=== PATIENT | male | born 1955 | race American Indian/Alaskan Native ===

== ENCOUNTER 2017-01-09 19:38 | Outpatient (CLI) | payer MEDICAID | END 2017-01-09 19:39 | disposition critical access hospital (66) | LOC: EMS 19:38 | PROVIDERS: ATTEND Surgery | DX: T14.90 Injury, unspecified (principal); W17.89XA Other fall from one level to another, initial encounter; Y92.830 Public park as the place of occurrence of the external cause | CPT/HCPCS: A0425; A0429 ==

== ENCOUNTER 2017-01-09 19:56 | Emergency (ER) | payer MEDICAID ==
--- NOTE | 2017-01-09 21:18 | CT Preliminary Report ---
Exam: CT Head W/O IMPRESSION: 1. 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 No acute infarct. 2. Generalized age-related cortical atrophic changes without evidence of acute intracranial abnormali ty. [facility] SITE ID: [id number]
--- NOTE | 2017-01-09 21:21 | CT Report ---
EXAM: CT HEAD EXAM DATE: 01/09/2017 09:06 PM. CLINICAL HISTORY: Fall, head lac, etoh. COMPARISON: None. TECHNIQUE: Multiaxial CT images were obtained from the foramen magnum to the vertex. IV contrast: Non e. Reformats: Coronal. In accordance with CT protocol optimization, one or more of the following dose reduction techniques w ere utilized for this exam: automated exposure control, adjustment of mA and/or KV based on patient s ize, or use of iterative reconstructive technique. FINDINGS: Parenchyma: No intraparenchymal hemorrhage. No evidence of mass, midline shift, or CT findings of acu te infarction. Santiago-white differentiation is distinct. Areas of encephalomalacia are noted in the lef t frontal and left parietal lobes. Extraaxial Spaces: Normal for age. No subdural or epidural collections identified. Ventricles: The ventricles and cortical sulci are enlarged, consistent with age-related tissue loss. Sinuses: Imaged paranasal sinuses, orbits, and mastoids show no significant abnormality. Bones: No calvarial defect. Old bilateral nasal bone fractures are noted. Other: Diffuse chronic microangiopathic white matter changes are evident. Extensive vascular calcific ations are present in the vertebral and cavernous carotid arteries. Mild right occipital scalp hematoma. No radiopaque foreign bodies or subcutaneous emphysema. IMPRESSION: 1. 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 No acute infarct. 2. Generalized age-related cortical atrophic changes without evidence of acute intracranial abnormali ty. [facility] Referring Provider Line: [phone] SITE ID: [id number]
--- NOTE | 2017-01-09 21:46 | CT Preliminary Report ---
Exam: CT Cervical Spine W/O IMPRESSION: 1. No acute fracture. Normal prevertebral soft tissues. 2. Diffuse degenerative disk and facet arthropathy noted in the cervical spine. See above. 3. 3 mm C3 on C4 retrolisthesis and 2 mm of C4-C5 anterolisthesis likely degenerative in origin. [facility] SITE ID: [id number]
--- NOTE | 2017-01-09 22:31 | CT Report ---
EXAM: CT CERVICAL SPINE WITHOUT CONTRAST DATE: 01/09/2017 09:07 PM HISTORY: Fall, head laceration, alcohol (ETOH). COMPARISONS: None. TECHNIQUE: Thin-section axial images were acquired of the cervical spine without contrast. Post-proce ssing: Coronal and sagittal reformats. Other: None. In accordance with CT protocol optimization, one or more of the following dose reduction techniques w ere utilized for this exam: automated exposure control, adjustment of mA and/or KV based on patient s ize, or use of iterative reconstructive technique. FINDINGS: Comment: Study mildly limited by patient motion. Alignment: 3 mm C3 on C4 retrolisthesis and 2 mm of C4 on C5 anterolisthesis likely degenerative in o rigin. Mild convex left curvature of the cervical spine centered in the lower cervical levels. Bones: No fracture or bone lesion. Interspace Levels/Facets: C1-C2: Marked narrowing between the C1 arch and dens articulation. Mild narrowing at the C1-C2 latera l mass articulation. C2-C3: Mild disk narrowing. Mild left and marked right facet arthropathy. C3-C4: Moderate disk narrowing with prominent disk osteophyte complex. Mild left and moderate right f acet arthropathy. Mild bilateral foraminal stenosis due to uncovertebral joint hypertrophy and facet arthropathy and disk osteophyte complex. C4-C5: Mild disk narrowing. Mild to moderate right and mild left facet arthropathy without significan t foraminal stenosis. C5-C6: Moderate to marked disk narrowing. Mild bilateral facet arthropathy. Moderate left and mild ri ght foraminal stenosis. C6-C7: Moderate to marked disk narrowing. Prominent disk osteophyte complex. Moderate left foraminal stenosis. C7-T1: Mild disk narrowing. Moderate right and mild left facet arthropathy. Musculature: Normal. No fatty atrophy. Other: The paravertebral and prevertebral soft tissues are normal. The lung apices are clear. Debris is present within the mildly prominent esophagus at the level of the thoracic inlet. Mild mucosal thi ckening in ethmoid and left maxillary sinus. Mastoids are clear. IMPRESSION: 1. No acute fracture. Normal prevertebral soft tissues. 2. Diffuse degenerative disk and facet arthropathy noted in the cervical spine. See above. 3. 3 mm C3 on C4 retrolisthesis and 2 mm of C4-C5 anterolisthesis likely degenerative in origin. [facility] Referring Provider Line: [phone] SITE ID: [id number]
--- NOTE | 2017-01-10 05:14 | ED Physician Documentation ---
PD HPI HEAD INJURY - Stated complaint Stated Complaint: GLF - Chief complaint Chief Complaint: Neuro - History obtained from History obtained from: Family, EMS - History of Present Illness Mechanism of head injury: Fell Where head injury occurred: Street Timing - onset: Today Location of injury: Back Quality of pain: Pain Associated symptoms: AMS Symptoms worsen with: Palpation, Movement Contributing factors: Intoxicated Similar symptoms before: Work up / diagnostics, Treatment Recently seen: Not recently seen - Additional information Additional information: Patient is a 61 year old male with a history of chronic alcohol abuse who was brought to the emergency department after falling and hitting his head while intoxicated. Review of Systems Unable to obtain: Intoxicated PD PAST MEDICAL HISTORY - Past Medical History Neuro: CVA - Present Medications Home Medications: Ambulatory Orders Medication Instructions Recorded Confirmed No Known Home Medications [No 01/09/17 01/09/17 Known Home Medications] - Allergies Allergies/Adverse Reactions: Allergies Allergy/AdvReac Type Severity Reaction Status Date / Time No Known Drug Allergies Allergy Verified 01/09/17 20:06 - Social History Does the pt smoke?: Yes Does the pt drink ETOH?: Yes Substance Use and Type: Marijuana - Immunizations Immunizations are current?: No Immunizations: TDAP >10years/unknown PD ED PE NORMAL - Vitals Vital signs reviewed: Yes - HEENT HEENT: PERRL, Moist mucous membranes, Dentition benign - Neck Neck: No bony TTP - Cardiac Cardiac: RRR, No murmur - Respiratory Respiratory: No respiratory distress, Clear bilaterally - Abdomen Abdomen: Soft, Non tender, Non distended - Derm Derm: Normal color, Warm and dry, No rash - Extremities Extremities: No deformity, Normal ROM s pain, No edema PD ED PE EXPANDED - HEENT HEENT: Head injury (abrasion on right posterior scalp), Other (no other facial or dental trauma) - Back Back: Other (no ecchymosis, abrasions or lacerations ) - Psych Psych: Intoxicated / AOB Results - Vitals Vitals: Vital Signs - 24 hr 01/09/17 01/09/17 01/09/17 20:06 21:09 23:58 Temperature 36.6 C Heart Rate 72 75 86 Respiratory 18 18 15 Rate Blood Pressure 143/76 H 144/89 H 136/64 H O2 Saturation 99 100 100 Oxygen O2 Source Room air - Rads (name of study) ct head Radiology: Final report received (no acute abnormality) ct cervical spine Radiology: Final report received (no acute fracture or dislocation) PD MEDICAL DECISION MAKING - ED course Complexity details: reviewed old records, reviewed results, re-evaluated patient , considered differential, d/w patient ED course: Patient was seen and examined at bedside. Patient was sent for imaging. when patient returned his wound was cleaned and required no repair at this time. Patient's images showed no acute traumatic findings. Patient was observed in the emergency department for about 8 hours. Patient was given ample time to sober up. Upon discharge patient was able to ambulate at his baseline and was able to attend to conversation. Patient required no further work up and was stable for discharge with outpatient follow up. Departure - Departure Disposition: 01 Home, Self Care Clinical Impression: Alcohol abuse Condition: Good Instructions: ED Alcohol Abuse Follow-Up: primary,care provider [Other] - As Needed Comments: Your diagnostics today showed no acute abnormality. your symptoms are secondary to your alcohol abuse. You should seek help via your pmd or rehab center. You will likely be more sore tomorrow and the next day. You can take motrin or tylenol as needed for pain. You may return to the emergency department at any time if necessary for new, worsening or uncontrollable symptoms.
[2017-01-10 05:25] VITALS: BP 141/87
== END 2017-01-10 05:27 | disposition home or self-care (01) ==
LOC: EDUNIT# → ED 19:56
DX: F10.129 Alcohol abuse with intoxication, unspecified (principal); S00.01XA Abrasion of scalp, initial encounter; M54.9 Dorsalgia, unspecified; W08.XXXA Fall from other furniture, initial encounter; Y93.89 Activity, other specified; Y92.830 Public park as the place of occurrence of the external cause; F17.200 Nicotine dependence, unspecified, uncomplicated
CPT/HCPCS: 70450; 72125; 99283; 99284

== ENCOUNTER 2017-04-07 21:49 | Outpatient (CLI) | payer MEDICAID | END 2017-04-07 21:50 | disposition critical access hospital (66) | LOC: EMS 21:49 | PROVIDERS: ATTEND Surgery | DX: R10.9 Unspecified abdominal pain (principal); W19.XXXA Unspecified fall, initial encounter; Y92.129 Unspecified place in nursing home as the place of occurrence of the external cause | CPT/HCPCS: A0425; A0429 ==

== ENCOUNTER 2017-04-07 22:09 | Emergency (ER) | payer MEDICAID ==
[2017-04-07 22:15] VITALS: BP 146/77
--- NOTE | 2017-04-07 22:17 | ED Physician Documentation ---
PD HPI Fall - Stated complaint Stated Complaint: GLF, RIGHT RIB PAIN - History obtained from History obtained from: Patient - History of Present Illness Mechanism of injury: Unknown Fall distance: Standing position Timing - onset: Enter time (approximately 16:30), Today Injury(ies) location: Chest, Abdomen Pain level now: 10 Quality of pain: Pain Associated symptoms: No: LOC Symptoms improve with: Rest, Position Worsens with: Movement, Palpation Contributing factors: Intoxicated Recently seen: Not recently seen Review of Systems Cardiac: reports: Chest pain / pressure (right low anterolateral chest wall pain ). denies: Palpitations Respiratory: reports: Reviewed and negative GI: reports: Abdominal Pain (RUQ). denies: Nausea, Vomiting Musculoskeletal: reports: Reviewed and negative PD PAST MEDICAL HISTORY - Past Medical History Past Medical History: No - Present Medications Home Medications: Ambulatory Orders Medication Instructions Recorded Confirmed Hydrocodone/Acetaminophen 1 - 2 each PO Q6HR PRN #12 tablet 04/08/17 [Hydrocodon-Acetaminophen 5-325] - Allergies Allergies/Adverse Reactions: Allergies Allergy/AdvReac Type Severity Reaction Status Date / Time codeine AdvReac Unknown Verified 04/07/17 22:35 - Living Situation Living Situation: reports: Alone Living Arrangement: reports: Assisted living - Social History Does the pt drink ETOH?: Yes PD ED PE NORMAL - Vitals Vital signs reviewed: Yes - General General: Alert and oriented X 3, Well developed/nourished - HEENT HEENT: Atraumatic - Neck Neck: No bony TTP - Cardiac Cardiac: RRR, No murmur - Respiratory Respiratory: No respiratory distress, Clear bilaterally - Abdomen Abdomen: Soft, Non distended, Other (RUQ tenderness to palpation) - Back Back: No spinal TTP - Derm Derm: Normal color - Extremities Extremities: No deformity, No tenderness to palpate, Normal ROM s pain, No edema - Neuro Neuro: Alert and oriented X 3, annealer 2-12 intact, No motor deficit, No sensory deficit, Normal speech - Free text exam Free text exam: tenderness with palpation of anterolateral right ribs without crepitus or [employer] Results - Vitals Vitals: Vital Signs - 24 hr 04/07/17 22:13 Temperature 36.7 C Heart Rate 80 Respiratory 18 Rate Blood Pressure 146/77 H O2 Saturation 98 Oxygen O2 Source Room air - Labs Labs: Laboratory Tests 04/07/17 04/07/17 22:35 22:35 WBC 11.1 H RBC 4.80 Hgb 9.3 L Hct 30.9 L MCV 64.5 L MCH 19.4 L MCHC 30.1 L RDW 17.9 H Plt Count 424 MPV 6.2 L Neut # 7.7 H Lymph # 2.1 [place] # 0.7 Eos # 0.3 Baso # 0.2 H Absolute Nucleated RBC 0.00 Nucleated RBCs 0.0 Manual Slide Review Indicated WBC Morphology NORMAL APPEARANCE Platelet Estimate NORMAL (130-450,000) Platelet Morphology NORMAL APPEARANCE RBC Morph Micro Appear 2+ POIKILOCYTOSIS Sodium 131 L Potassium 4.2 Chloride 98 L Carbon Dioxide 23 Anion Gap 10.0 BUN 12 Creatinine 0.9 Estimated GFR (MDRD) 86 L Glucose 90 Calcium 8.4 L Total Bilirubin 0.4 AST 23 ALT 15 Alkaline Phosphatase 82 Total Protein 7.4 Albumin 4.3 Globulin 3.1 Albumin/Globulin Ratio 1.4 Lipase 61 H Ethyl Alcohol 182.5 - Rads (name of study) CT A/P Radiology: Prelim report reviewed, See rad report PD MEDICAL DECISION MAKING - ED course Complexity details: reviewed results, re-evaluated patient, considered differential, d/w patient Departure - Departure Disposition: 01 Home, Self Care Clinical Impression: Alcohol intoxication, Fall, Contusion, chest wall Condition: Good Instructions: ED Contusion Chest Wall, ED Alcohol Intoxication Follow-Up: Bryce Moy MD [Primary Care Provider] - Prescriptions: Hydrocodone/Acetaminophen [Hydrocodon-Acetaminophen 5-325] 1 - 2 each PO Q6HR PRN #12 tablet PRN Reason: Pain Discharge Date/Time: 04/08/17 02:37
[2017-04-07] MEDS ORDERED: MORPHINE 2 MG/ML CARPUJECT IVP STA (22:31)
[2017-04-07] MEDS ORDERED: MORPHINE 2 MG/ML CARPUJECT ONE (22:39)
[2017-04-07 22:50] LABS: BASOPHILS # (AUTO) 0.2 10^3/uL (0.0-0.1); BASOPHILS % (AUTO) 2.1 %; EOSINOPHILS # (AUTO) 0.3 10^3/uL (0.0-0.7); EOSINOPHILS % (AUTO) 3.1 %; HCT - HEMATOCRIT 30.9 % (42.0-52.0); HGB - HEMOGLOBIN 9.3 g/dL (14.0-18.0); LYMPHOCYTES # (AUTO) 2.1 10^3/uL (1.5-3.5); LYMPHOCYTES % (AUTO) 19.1 %; MEAN CORPUSCULAR HEMOGLOBIN 19.4 pg (27.0-31.0); MEAN CORPUSCULAR HGB CONC 30.1 g/dL (32.0-36.0); MEAN CORPUSCULAR VOLUME 64.5 fL (80.0-94.0); MEAN PLATELET VOLUME 6.2 fL (7.4-11.4); MONOCYTES # (AUTO) 0.7 10^3/uL (0.0-1.0); NEUTROPHILS # (AUTO) 7.7 10^3/uL (1.5-6.6); NEUTROPHILS % (AUTO) 69.7 %; RED CELL DISTRIBUTION WIDTH 17.9 % (12.0-15.0); UNCORRECTED WHITE BLOOD COUNT 11.1 x10^3/uL; WHITE BLOOD COUNT 11.1 x10^3/uL (4.8-10.8)
[2017-04-07 22:55] LABS: ALBUMIN/GLOBULIN RATIO 1.4 (1.0-2.2); BILIRUBIN,TOTAL 0.4 mg/dL (0.2-1.0); CALCIUM 8.4 mg/dL (8.5-10.3); CREATININE 0.9 mg/dL (0.6-1.2); POTASSIUM 4.2 mmol/L (3.5-5.0); TOTAL PROTEIN 7.4 g/dL (6.7-8.2)
[2017-04-07 23:09] LABS: PLATELET ESTIMATE, MANUAL NORMAL (130-450,000) (NORMAL); PLATELET MORPHOLOGY NORMAL APPEARANCE (NORMAL)
[2017-04-07 23:11] LABS: WBC MORPHOLOGY (MULTIPLE) NORMAL APPEARANCE (NORMAL)
[2017-04-07] MEDS ORDERED: IOPAMIDOL-300 100 ML VIAL IVP ONE (23:21)
--- NOTE | 2017-04-08 00:12 | CT Preliminary Report ---
Exam: CT Abdomen/Pelvis W/ IMPRESSION: 1. No solid organ injury in this patient status post fall. 2. Diverticulosis. Previous sigmoid resection. 3. Extensive postsurgical changes are noted in the pelvis, unchanged from prior studies. [facility] SITE ID: [id number]
--- NOTE | 2017-04-08 00:41 | CT Report ---
EXAM: CT ABDOMEN AND PELVIS EXAM DATE: 04/07/2017 11:24 PM. CLINICAL HISTORY: Fall, injury, RUQ tenderness. COMPARISONS: 07/30/2016. TECHNIQUE: Routine helical CT imaging was performed through the abdomen and pelvis. IV contrast: 100 mL of Isovue-300. Enteric contrast: No. Reconstructions: Coronal and sagittal. In accordance with CT protocol optimization, one or more of the following dose reduction techniques w ere utilized for this exam: automated exposure control, adjustment of mA and/or KV based on patient s ize, or use of iterative reconstructive technique. FINDINGS: Lung Bases: Mild cardiac enlargement. Small hiatal hernia. No effusions. Mild atelectasis at the base s. Liver: Fatty liver. No mass. Gallbladder/Bile Ducts: Unremarkable. Spleen: Normal. Pancreas: Normal. Adrenal Glands: Normal. Kidneys: Indeterminate 8 mm hyperdense left mid renal lesion on image 3, 36. No stones or merle hydronephrosis. Peritoneal Cavity/Bowel: Normal. No free fluid, free air or adenopathy. No masses or acute inflammato ry process. Occasional sigmoid diverticula. No inflammation. Appendix is not seen. Pelvic Organs: Prostate gland is surgically absent. Previous sigmoid resection is noted in the pelvis . Normal bladder. No pelvic mass or adenopathy. Vasculature: Diffuse atheromatous plaques are present in the abdominal aorta and branch vessels. No a neurysm. Normal IVC. Bones: No significant abnormality. Other: None. IMPRESSION: 1. No solid organ injury in this patient status post fall. 2. Diverticulosis. Previous sigmoid resection. 3. Extensive postsurgical changes are noted in the pelvis, unchanged from prior studies. [facility] Referring Provider Line: [phone] SITE ID: [id number]
[2017-04-08] MEDS ORDERED: MORPHINE 2 MG/ML CARPUJECT IVP STA (00:49)
[2017-04-08] MEDS ORDERED: MORPHINE 2 MG/ML CARPUJECT ONE (01:07)
== END 2017-04-08 02:37 | disposition home or self-care (01) ==
LOC: EDUNIT# → ED 22:09
DX: S20.211A Contusion of right front wall of thorax, initial encounter (principal); W18.39XA Other fall on same level, initial encounter; F10.129 Alcohol abuse with intoxication, unspecified
CPT/HCPCS: 36415; 74177; 80053; 80320; 83690; 85025; 96374; 96376; 99283; 99284; Q9967

== ENCOUNTER 2017-08-30 04:24 | Outpatient (CLI) | payer MEDICAID | END 2017-08-30 04:25 | disposition critical access hospital (66) | LOC: EMS 04:24 | PROVIDERS: ATTEND Surgery | DX: R50.9 Fever, unspecified (principal); R52 Pain, unspecified | CPT/HCPCS: A0425; A0429 ==

== ENCOUNTER 2017-08-30 04:38 | Emergency (ER) | payer MEDICAID ==
--- NOTE | 2017-08-30 05:26 | XRAY Report ---
EXAM: CHEST RADIOGRAPHY EXAM DATE: 08/30/2017 05:09 AM. CLINICAL HISTORY: Fever, cough. COMPARISON: None. TECHNIQUE: 2 views. FINDINGS: Lungs/Pleura: No alveolar consolidation or pleural effusion seen. No pneumothorax. Mediastinum: Heart and mediastinal contours are unremarkable. Aortic atherosclerosis. Other: None. IMPRESSION: 1. No acute abnormality seen in the chest. [facility] Referring Provider Line: [phone] SITE ID: [id number]
[2017-08-30] MEDS ORDERED: BENZONATATE 100 MG CAPSULE PO STA (05:58)
--- NOTE | 2017-08-30 05:58 | ED Physician Documentation ---
PD HPI URI - Stated complaint Stated Complaint: COUGH/CHILLS - Chief complaint Chief Complaint: Resp - History obtained from History obtained from: Patient, EMS - History of Present Illness Timing - onset: How many days ago (2) Timing details: Gradual onset, Still present Associated symptoms: Fever, Nasal congestion, Dry cough Similar symptoms before: No diagnosis Recently seen: Not recently seen - Additional information Additional information: Patient is a 62 year old male with a history of cognitive delay secondary to a stroke who was sent in from a [place] [facility] for fever and cough over the last few days. they stated that the highest temperature was 102. they called ems. Upon arrival for ems patient was no longer febrile. Review of Systems Unable to obtain: Confused, Dementia Constitutional: reports: Fever PD PAST MEDICAL HISTORY - Past Medical History Past Medical History: Yes Cardiovascular: Hypertension, High cholesterol, [place] Respiratory: None Neuro: Dementia Endocrine/Autoimmune: None GI: Pancreatitis : None HEENT: None Psych: None, Other Musculoskeletal: None Derm: None - Past Surgical History Past Surgical History: Yes - Present Medications Home Medications: Ambulatory Orders Medication Instructions Recorded Confirmed Acetaminophen [Tylenol] 650 mg PO PRN PRN 08/30/17 08/30/17 Aspirin 325 mg PO DAILY 08/30/17 08/30/17 Benzonatate [Tessalon] 100 mg PO TID #14 capsule 08/30/17 Metoprolol Succinate [Toprol Xl] 50 mg PO DAILY 08/30/17 08/30/17 guaiFENesin/DEXTROMETHORPHAN 10 ml PO DAILY 08/30/17 08/30/17 [Robitussin Dm] - Allergies Allergies/Adverse Reactions: Allergies Allergy/AdvReac Type Severity Reaction Status Date / Time codeine AdvReac Unknown Verified 08/30/17 04:43 - Social History Does the pt smoke?: No Smoking Status: Never smoker Does the pt drink ETOH?: Yes Does the pt have substance abuse?: No - Immunizations Immunizations are current?: No Immunizations: TDAP >10years/unknown - POLST Patient has POLST: No PD ED PE NORMAL - Vitals Vital signs reviewed: Yes - General General: Alert and oriented X 3, No acute distress - HEENT HEENT: Atraumatic, Moist mucous membranes - Neck Neck: Supple, no meningeal sign - Cardiac Cardiac: RRR, No murmur - Respiratory Respiratory: No respiratory distress - Abdomen Abdomen: Soft, Non tender, Non distended - Derm Derm: Normal color, Warm and dry, No rash - Extremities Extremities: No deformity, No edema - Neuro Neuro: No motor deficit Verbal: Confused Results - Vitals Vitals: Vital Signs - 24 hr 08/30/17 04:39 Temperature 37.4 C Heart Rate 91 Respiratory 20 Rate Blood Pressure 152/90 H O2 Saturation 99 Oxygen O2 Source Room air - Labs Labs: Laboratory Tests 08/30/17 04:50 Influenza A (Rapid) POSITIVE H Influenza B (Rapid) Negative Influenza Types A,B Ag + H - Rads (name of study) chest x-ray Radiology: Final report received (within normal limits) PD MEDICAL DECISION MAKING - ED course Complexity details: reviewed old records, reviewed results, re-evaluated patient , considered differential ED course: Patient was seen and examined at bedside. Patient was well appearing. Patient was afebrile, normotensive and not tachycardic. Chest x-ray was performed as well as flu swab. Patient was found to have the flu. Patient was immunocompetent and had had symptoms for over 48 hours so tamiflu was not given. Patient was treated with tessalon for his cough and was stable for discharge with outpatient follow up. Departure - Departure Disposition: 01 Home, Self Care Clinical Impression: Influenza A Condition: Good Instructions: ED Flu Follow-Up: Bryce Moy MD [Primary Care Provider] - Within 3 Days Prescriptions: Benzonatate [Tessalon] 100 mg PO TID #14 capsule Comments: Your symptoms today are being caused by the flu. there is no specific treatment , only to treat the symptoms. You can take motrin or tylenol as needed for fevers and over the counter cold and flu medications. You are contagious so it is important that you partake in adequate hand washing and cover when you cough/ wear a mask. If your symptoms persist for more than the next 4 days you should follow up with your doctor.
[2017-08-30 06:26] VITALS: BP 148/74
== END 2017-08-30 06:59 | disposition home or self-care (01) ==
LOC: EDUNIT# → ED 04:38 → SUPCPDRO 04:38 → ED 06:59
DX: J10.1 Influenza due to other identified influenza virus with other respiratory manifestations (principal); F03.90 Unspecified dementia, unspecified severity, without behavioral disturbance, psychotic disturbance, mood disturbance, and anxiety; Z86.73 Personal history of transient ischemic attack (TIA), and cerebral infarction without residual deficits; I10 Essential (primary) hypertension; E78.00 Pure hypercholesterolemia, unspecified; I25.2 Old myocardial infarction; Z79.82 Long term (current) use of aspirin
CPT/HCPCS: 71046; 87275; 87276; 99283; A9270

== ENCOUNTER 2017-11-08 22:00 | Outpatient (CLI) | payer MEDICAID | END 2017-11-08 22:01 | disposition critical access hospital (66) | LOC: EMS 22:00 | PROVIDERS: ATTEND Surgery | DX: R56.9 Unspecified convulsions (principal) | CPT/HCPCS: A0425; A0427 ==

== ENCOUNTER 2017-11-08 22:17 | Emergency (ER) | payer MEDICAID ==
--- NOTE | 2017-11-08 22:52 | ED Physician Documentation ---
History of Present Illness - Stated complaint Stated Complaint: SZ/FOUND DOWN - Chief complaint Chief Complaint: Neuro - History obtained from History obtained from: Patient, EMS - History of Present Illness Timing: Today - Additonal information Additional information: brought in by ambulance after passerby call 911 for patient being found on the ground in public. Patient says I had a seizure, Although he denies having any seizure history.there is no report of witnessed seizure activity. He is a resident at [facility] and reportedly was out with a friend drinking tonight. Review of Systems Unable to obtain: Intoxicated (unreliable ROS due to intoxication; additionally , previous ED record indicates h/o cognitive deficit due to CVA) PD PAST MEDICAL HISTORY - Past Medical History Past Medical History: Yes Cardiovascular: Hypertension, High cholesterol, [place] Respiratory: None Neuro: Dementia Endocrine/Autoimmune: None GI: Pancreatitis : None HEENT: None Psych: None, Other Musculoskeletal: None Derm: None - Past Surgical History Past Surgical History: Yes - Present Medications Home Medications: Ambulatory Orders Medication Instructions Recorded Confirmed Acetaminophen [Tylenol] 650 mg PO PRN PRN 08/30/17 08/30/17 Aspirin 325 mg PO DAILY 08/30/17 08/30/17 Metoprolol Succinate [Toprol Xl] 50 mg PO DAILY 08/30/17 08/30/17 guaiFENesin/DEXTROMETHORPHAN 10 ml PO DAILY 08/30/17 08/30/17 [Robitussin Dm] - Allergies Allergies/Adverse Reactions: Allergies Allergy/AdvReac Type Severity Reaction Status Date / Time codeine AdvReac Unknown Verified 11/08/17 22:26 - Social History Does the pt smoke?: No Smoking Status: Never smoker Does the pt drink ETOH?: Yes Does the pt have substance abuse?: No - Immunizations Immunizations are current?: No Immunizations: TDAP >10years/unknown - POLST Patient has POLST: No PD ED PE NORMAL - Vitals Vital signs reviewed: Yes - General General: Alert and oriented X 3, No acute distress, Well developed/nourished - HEENT HEENT: Atraumatic, PERRL, EOMI, Moist mucous membranes - Neck Neck: No bony TTP - Cardiac Cardiac: RRR, No murmur - Respiratory Respiratory: No respiratory distress, Clear bilaterally - Abdomen Abdomen: Soft, Non tender - Derm Derm: Normal color, Warm and dry - Extremities Extremities: No tenderness to palpate, Normal ROM s pain - Neuro Neuro: Alert and oriented X 3, bag maker 2-12 intact, No motor deficit, No sensory deficit, Other (intelligible but slightly slurred speech) Results - Vitals Vitals: Oxygen O2 Source Room air - EKG (time done) No standard instances Rate: Rate (enter#) (77) Rhythm: NSR [place]: Normal Intervals: Normal [place] QRS: Normal Ischemia: Normal ST segments - Labs Labs: Laboratory Tests 11/08/17 11/08/17 22:46 22:46 WBC 10.2 RBC 4.59 L Hgb 8.5 L Hct 28.8 L MCV 62.8 L MCH 18.5 L MCHC 29.5 L RDW 17.8 H Plt Count 432 MPV 6.4 L Neut # 7.5 H Lymph # 1.7 [place] # 0.6 Eos # 0.3 Baso # 0.2 H Absolute Nucleated RBC 0.00 Nucleated RBC % 0.0 Manual Slide Review Indicated Platelet Estimate NORMAL (130-450,000) RBC Morph Micro Appear 1+ OVALOCYTES Sodium 129 L Potassium 3.4 L Chloride 96 L Carbon Dioxide 23 Anion Gap 10.0 BUN 11 Creatinine 0.6 Estimated GFR (MDRD) 137 Glucose 94 Calcium 8.1 L Total Bilirubin 0.5 AST 23 ALT 14 Alkaline Phosphatase 64 Total Protein 7.0 Albumin 4.1 Globulin 2.9 Albumin/Globulin Ratio 1.4 Lipase 109 H Ethyl Alcohol 281.4 - Rads (name of study) CT head Radiology: Prelim report reviewed, See rad report PD MEDICAL DECISION MAKING - ED course Complexity details: reviewed results, re-evaluated patient, considered differential, d/w patient Departure - Departure Disposition: 01 Home, Self Care Clinical Impression: Alcohol intoxication Condition: Good Instructions: ED Alcohol Intoxication Follow-Up: [facility] [Provider Group] [facility] [Provider Group] Discharge Date/Time: 11/09/17 06:26
[2017-11-08] MEDS ORDERED: SODIUM CHLORIDE 0.9% 1,000 ML IV ONE (22:59)
[2017-11-08 23:01] LABS: BASOPHILS # (AUTO) 0.2 10^3/uL (0.0-0.1); BASOPHILS % (AUTO) 1.9 %; EOSINOPHILS # (AUTO) 0.3 10^3/uL (0.0-0.7); EOSINOPHILS % (AUTO) 2.5 %; HGB - HEMOGLOBIN 8.5 g/dL (14.0-18.0); LYMPHOCYTES # (AUTO) 1.7 10^3/uL (1.5-3.5); LYMPHOCYTES % (AUTO) 16.7 %; MEAN CORPUSCULAR HEMOGLOBIN 18.5 pg (27.0-31.0); MEAN CORPUSCULAR HGB CONC 29.5 g/dL (32.0-36.0); MEAN CORPUSCULAR VOLUME 62.8 fL (80.0-94.0); MEAN PLATELET VOLUME 6.4 fL (7.4-11.4); MONOCYTES # (AUTO) 0.6 10^3/uL (0.0-1.0); MONOCYTES % (AUTO) 6.1 %; NEUTROPHILS # (AUTO) 7.5 10^3/uL (1.5-6.6); NEUTROPHILS % (AUTO) 72.8 %; PLT - PLATELET COUNT 432 10^3/uL (130-450); RED BLOOD COUNT 4.59 10^6/uL (4.70-6.10); RED CELL DISTRIBUTION WIDTH 17.8 % (12.0-15.0); WHITE BLOOD COUNT 10.2 x10^3/uL (4.8-10.8)
[2017-11-08 23:04] LABS: ALBUMIN 4.1 g/dL (3.2-5.5); ALBUMIN/GLOBULIN RATIO 1.4 (1.0-2.2); BILIRUBIN,TOTAL 0.5 mg/dL (0.2-1.0); CALCIUM 8.1 mg/dL (8.5-10.3); CREATININE 0.6 mg/dL (0.6-1.2)
[2017-11-08 23:29] LABS: PLATELET ESTIMATE, MANUAL NORMAL (130-450,000) (NORMAL)
--- NOTE | 2017-11-09 00:32 | CT Preliminary Report ---
Exam: CT HEAD W/O IMPRESSION: Stable head CT status post left MCA infarcts. Stable moderate microvascular change. [facility] SITE ID: [id number]
--- NOTE | 2017-11-09 00:32 | CT Report ---
EXAM: CT HEAD EXAM DATE: 11/08/2017 11:28 PM. CLINICAL HISTORY: Decreased mental status COMPARISON: Prior head CT 01/09/2017. TECHNIQUE: Multiaxial CT images were obtained from the foramen magnum to the vertex. Reformats: Coron al. IV contrast: None. In accordance with CT protocol optimization, one or more of the following dose reduction techniques w ere utilized for this exam: automated exposure control, adjustment of mA and/or KV based on patient s ize, or use of iterative reconstructive technique. FINDINGS: Parenchyma: No intraparenchymal hemorrhage. Status post remote left MCA infarcts involving left front al and left parietal lobes. There is low-density involving left caudate nucleus as well. Scattered ar eas of low-density involving white matter bilateral cerebral hemispheres. Extraaxial Spaces: No subdural or epidural collections identified. Ventricles: Ex vacuo dilatation of left lateral ventricle. No mass effect. No midline shift. Sinuses and Orbits: Imaged paranasal sinuses, orbits, and mastoids show no significant abnormality. Bones: No evidence of fracture or calvarial defect. Other: None. IMPRESSION: Stable head CT status post left MCA infarcts. Stable moderate microvascular change. [facility] Referring Provider Line: [phone] SITE ID: [id number]
[2017-11-09 06:24] VITALS: BP 126/74
== END 2017-11-09 06:26 | disposition home or self-care (01) ==
LOC: EDUNIT# → ED 22:17
DX: F10.129 Alcohol abuse with intoxication, unspecified (principal); I10 Essential (primary) hypertension; I25.2 Old myocardial infarction; F03.90 Unspecified dementia, unspecified severity, without behavioral disturbance, psychotic disturbance, mood disturbance, and anxiety; E78.00 Pure hypercholesterolemia, unspecified; Z79.82 Long term (current) use of aspirin
CPT/HCPCS: 36415; 70450; 80053; 80320; 83690; 85025; 93005; 96360; 99283; 99285

== ENCOUNTER 2018-06-12 17:39 | Outpatient (CLI) | payer MEDICAID | END 2018-06-12 17:40 | disposition EMS.NT | LOC: EMS 17:39 | PROVIDERS: ATTEND Surgery | DX: S00.511A Abrasion of lip, initial encounter (principal); Y04.2XXA Assault by strike against or bumped into by another person, initial encounter ==

== ENCOUNTER 2018-06-17 18:53 | Outpatient (CLI) | payer MEDICAID | END 2018-06-17 18:54 | disposition critical access hospital (66) | LOC: EMS 18:53 | PROVIDERS: ATTEND Surgery | DX: S01.81XA Laceration without foreign body of other part of head, initial encounter (principal); W18.30XA Fall on same level, unspecified, initial encounter; Y92.099 Unspecified place in other non-institutional residence as the place of occurrence of the external cause | CPT/HCPCS: A0425; A0429; A0999 ==

== ENCOUNTER 2018-06-17 19:14 | Emergency (ER) | payer MEDICAID ==
--- NOTE | 2018-06-17 19:24 | ED Physician Documentation ---
PD HPI HEAD INJURY - Stated complaint Stated Complaint: GLF - HIT FOREHEAD, ETOH - Chief complaint Chief Complaint: Trauma Hd/Nk - History obtained from History obtained from: Patient, EMS - History of Present Illness Mechanism of head injury: Fell (63-year-old gentleman who was out drinking today and had a ground-level fall hitting his forehead. He also has a scrape on the right pinky and the knee.) Review of Systems Unable to obtain: Intoxicated PD PAST MEDICAL HISTORY - Past Medical History Cardiovascular: Hypertension, High cholesterol, [place] Respiratory: None Endocrine/Autoimmune: None GI: Pancreatitis : None HEENT: None Psych: None, Other Musculoskeletal: None Derm: None - Past Surgical History Past Surgical History: Yes - Present Medications Home Medications: Ambulatory Orders Medication Instructions Recorded Confirmed Acetaminophen [Tylenol] 650 mg PO PRN PRN 08/30/17 08/30/17 RX: Aspirin 325 mg PO DAILY 08/30/17 08/30/17 RX: Metoprolol Succinate [Toprol 50 mg PO DAILY 08/30/17 08/30/17 Xl] guaiFENesin/DEXTROMETHORPHAN 10 ml PO DAILY 08/30/17 08/30/17 [Robitussin Dm] - Allergies Allergies/Adverse Reactions: Allergies Allergy/AdvReac Type Severity Reaction Status Date / Time codeine AdvReac Unknown Verified 11/08/17 22:26 - Social History Does the pt smoke?: No Smoking Status: Never smoker Does the pt drink ETOH?: Yes Does the pt have substance abuse?: No - Immunizations Immunizations are current?: No Immunizations: TDAP >10years/unknown - POLST Patient has POLST: No PD ED PE NORMAL - Vitals Vital signs reviewed: Yes - General General: Other (He is alert and follows commands. He knows his name and he knows he has an upcoming dental appointment when we talk about it. He does smell of alcohol and is slurring his speech.) - HEENT HEENT: PERRL, EOMI - Neck Neck: Other (There is no bony tenderness of the neck but he is maintained in a c-collar pending imaging given his intoxicated status.) - Cardiac Cardiac: RRR, No murmur - Respiratory Respiratory: No respiratory distress, Clear bilaterally - Abdomen Abdomen: Normal bowel sounds, Soft, Non tender - Back Back: No CVA TTP, No spinal TTP - Derm Derm: Normal color, Warm and dry - Extremities Extremities: Other (There is a little skin scrape on the dorsum of the right pinky at the level of the PIP but no tenderness or limited range of motion. There is also a little scrape on the right knee but he has full range of motion there.) - Neuro Neuro: Alert and oriented X 3, Normal speech Eye Opening: Spontaneous Motor: Obeys Commands Verbal: Oriented GCS Score: 15 - Psych Psych: Normal mood, Normal affect Results - Vitals Vitals: Vital Signs - 24 hr 06/17/18 06/17/18 06/17/18 19:11 20:37 21:29 Temperature 36.3 C L Heart Rate 77 81 58 L Respiratory 18 15 14 Rate Blood Pressure 145/83 H 129/74 128/68 O2 Saturation 98 99 98 06/17/18 22:38 Temperature Heart Rate 68 Respiratory 15 Rate Blood Pressure 135/78 H O2 Saturation 97 Oxygen O2 Source Room air PD MEDICAL DECISION MAKING - ED course ED course: 63yo male s/o GLF while intoxicated. CT Head and Cspine done and without traumatic findings. Care to Dr Light to obs until clinically sober/safely ambulatory. Departure - Departure Clinical Impression: Alcohol intoxication, Fall, Injury of head and neck Condition: Good Record reviewed to determine appropriate education?: Yes Instructions: ED Alcohol Intoxication, ED Head Injury Closed
--- NOTE | 2018-06-17 20:18 | CT Report ---
Reason: head inj Procedure Date: 06/17/2018 Accession Number: [id number] / [id number] Procedure: CT - Head W/O CPT Code: FULL RESULT: EXAM: CT HEAD EXAM DATE: 06/17/2018 08:05 PM. CLINICAL HISTORY: Trauma, pain. COMPARISON: 11/08/2017. TECHNIQUE: Multiaxial CT images were obtained from the foramen magnum to the vertex. Reformats: Sagittal and coronal. IV contrast: None. In accordance with CT protocol optimization, one or more of the following dose reduction techniques were utilized for this exam: automated exposure control, adjustment of mA and/or KV based on patient size, or use of iterative reconstructive technique. FINDINGS: Parenchyma: No intraparenchymal hemorrhage. No evidence of mass, midline shift, or CT findings of acute infarction. Old left frontoparietal infarctions and lacunar infarctions. Santiago-white differentiation is distinct. Diffuse chronic microangiopathic white matter changes are evident. Extraaxial Spaces: Normal for age. No subdural or epidural collections. Ventricles: The ventricles and cortical sulci are enlarged, consistent with age-related tissue loss. Sinuses and orbits: Imaged paranasal sinuses, orbits, and mastoids show no significant abnormality. Bones: Old nasal fracture. Otherwise unremarkable. Other: Superficial soft tissue swelling high over right forehead. IMPRESSION: 1. Soft tissue swelling. 2. Old infarctions and other chronic findings, but no acute intracranial disease. [facility]
--- NOTE | 2018-06-17 20:34 | CT Report ---
Reason: head inj Procedure Date: 06/17/2018 Accession Number: [id number] / [id number] Procedure: CT - Cervical Spine W/O CPT Code: FULL RESULT: EXAM: CT CERVICAL SPINE WITHOUT CONTRAST DATE: 06/17/2018 08:06 PM. HISTORY: Fall, pain. COMPARISONS: 01/09/2017. TECHNIQUE: Thin-section axial images were acquired of the cervical spine without contrast. Post-processing: Coronal and sagittal reformats. Other: None. In accordance with CT protocol optimization, one or more of the following dose reduction techniques were utilized for this exam: automated exposure control, adjustment of mA and/or KV based on patient size, or use of iterative reconstructive technique. FINDINGS: Alignment: Mild scoliosis. No listhesis. Bones: No fracture or bone lesion. Interspace Levels/Facets: Disk space narrowing at all cervical levels except the C4-C5. Generalized degenerative changes. Musculature: Normal. No fatty atrophy. Other: The paravertebral and prevertebral soft tissues are unremarkable. The lung apices are clear. IMPRESSION: No acute disease. [facility]
[2018-06-17 22:39] VITALS: BP 135/78
--- NOTE | 2018-06-17 23:21 | ED Physician Documentation ---
ED Addendum - Addendum Addendum: 06/17/18 23:20 The patient was medically evaluated by Dr. Rosales, the patient's care was turned over to ma for observation until he was clinically sober before discharge. The patient was observed in the emergency department for several hours. The patient is now up alert and ambulating without assistance. The patient appears clinically sober and appropriate for discharge. The patient will be given a cab voucher to his place of residence. The patient resides at a senior care where he will be observed and cared for. The patient was advised to return to the emergency department immediately for any worsening or any concerns.
== END 2018-06-18 00:10 | disposition home or self-care (01) ==
LOC: EDUNIT# → ED 19:14
DX: F10.929 Alcohol use, unspecified with intoxication, unspecified (principal); S09.90XA Unspecified injury of head, initial encounter; S19.9XXA Unspecified injury of neck, initial encounter; S60.946A Unspecified superficial injury of right little finger, initial encounter; S80.911A Unspecified superficial injury of right knee, initial encounter; W18.30XA Fall on same level, unspecified, initial encounter; I10 Essential (primary) hypertension; I25.2 Old myocardial infarction; Z79.82 Long term (current) use of aspirin
CPT/HCPCS: 70450; 72125; 99283; 99284

== ENCOUNTER 2018-11-07 18:36 | Outpatient (CLI) | payer MEDICAID | END 2018-11-07 18:37 | disposition critical access hospital (66) | LOC: EMS 18:36 | PROVIDERS: ATTEND Surgery | DX: M54.2 Cervicalgia (principal); W18.30XA Fall on same level, unspecified, initial encounter; Y93.01 Activity, walking, marching and hiking; Y92.481 Parking lot as the place of occurrence of the external cause | CPT/HCPCS: A0425; A0429; A0999 ==

== ENCOUNTER 2018-11-07 18:52 | Observation (INO) | payer MEDICAID ==
--- NOTE | 2018-11-07 19:33 | ED Physician Documentation ---
History of Present Illness - Stated complaint Stated Complaint: GLF - Chief complaint Chief Complaint: Trauma Hd/Nk - History obtained from History obtained from: Patient - Additonal information Additional information: Patient is a 63-year-old male, a relatively poor historian, who admits to being intoxicated earlier today and having 2 separate falls. Patient does not believe he struck his head or loss consciousness, but does complain of neck pain. Patient denies other headache, extremity pain, chest pain, abdominal pain, difficulty breathing, pelvic pain, or other recent illness or complaints preceding his falls. Patient denies recent drug use. No known improving or worsening factors noted. Otherwise, patient does not provide further details and is unaccompanied. Review of Systems Constitutional: denies: Fever Cardiac: denies: Chest pain / pressure GI: denies: Abdominal Pain Musculoskeletal: reports: Neck pain PD PAST MEDICAL HISTORY - Past Medical History Cardiovascular: Hypertension, High cholesterol, [place] Respiratory: None Neuro: CVA, Seizure disorder Endocrine/Autoimmune: None GI: Pancreatitis : None HEENT: None Psych: None, Other Musculoskeletal: None Derm: None - Past Surgical History Past Surgical History: Yes - Present Medications Home Medications: Ambulatory Orders Medication Instructions Recorded Confirmed Acetaminophen [Tylenol] 650 mg PO PRN PRN 08/30/17 08/30/17 RX: Aspirin 325 mg PO DAILY 08/30/17 08/30/17 RX: Metoprolol Succinate [Toprol 50 mg PO DAILY 08/30/17 08/30/17 Xl] guaiFENesin/DEXTROMETHORPHAN 10 ml PO DAILY 08/30/17 08/30/17 [Robitussin Dm] - Allergies Allergies/Adverse Reactions: Allergies Allergy/AdvReac Type Severity Reaction Status Date / Time codeine AdvReac Unknown Verified 11/08/17 22:26 - Social History Does the pt smoke?: No Smoking Status: Former smoker Does the pt drink ETOH?: Yes ETOH Use: Beer Does the pt have substance abuse?: Yes Substance Use and Type: Marijuana - Immunizations Immunizations are current?: No Immunizations: TDAP >10years/unknown - POLST Patient has POLST: No PD ED PE NORMAL - General General: No acute distress, Well developed/nourished, Other (Slurred speech, interactive with exam, resting comfortably in bed) - HEENT HEENT: Atraumatic, PERRL (Gross visual acuity intact. No nystagmus.), EOMI, Moist mucous membranes, Other (Poor dentition throughout. No evidence of intraoral trauma. No facial bone instability or pain with palpation. No epistaxis.No periorbital swelling or ecchymosis noted.) - Neck Neck: No: No bony TTP (Bony tenderness to cervical spine only) - Cardiac Cardiac: RRR, No murmur - Respiratory Respiratory: No respiratory distress, Clear bilaterally - Abdomen Abdomen: Normal bowel sounds, Soft, Non tender, Non distended, Other (Pelvis stable and nontender) - Rectal Rectal: Other (No obvious rectal tears or hemorrhoids present. Minimal stool in vault without Hemoccult positive stool. No masses otherwise palpated.) - Back Back: No spinal TTP - Derm Derm: Normal color, Warm and dry, No rash - Extremities Extremities: No deformity, No tenderness to palpate - Neuro Neuro: No motor deficit, No sensory deficit - Psych Psych: Other (Seems slightly intoxicated) Results - Vitals Vitals: Vital Signs - 24 hr 11/07/18 11/07/18 11/07/18 19:00 19:05 21:05 Temperature 36.2 C L 36.2 C L Heart Rate 75 75 73 Respiratory 18 18 19 Rate Blood Pressure 131/70 H 131/70 H 127/57 L O2 Saturation 100 100 100 Oxygen O2 Source Room air - EKG (time done) 1904 Rate: Rate (enter#) (72) Rhythm: NSR QRS: LVH Ischemia: Hyperacute T waves - Labs Labs: Laboratory Tests 11/07/18 11/07/18 11/07/18 19:50 19:50 19:50 WBC 5.4 RBC 4.07 L Hgb 6.3 L* Hct 23.0 L MCV 56.4 L MCH 15.5 L MCHC 27.4 L RDW 17.3 H Plt Count 518 H MPV 5.8 L Neut # (Auto) 2.5 Lymph # (Auto) 2.1 Foster # (Auto) 0.4 Eos # (Auto) 0.2 Baso # (Auto) 0.2 H Absolute Nucleated RBC 0.00 Nucleated RBC % 0.0 Platelet Estimate INCREASED (>450,000) Platelet Morphology NORMAL APPEARANCE RBC Morph Micro Appear 2+ POIKILOCYTOSIS PT INR APTT Sodium 129 L Potassium 3.8 Chloride 94 L Carbon Dioxide 24 Anion Gap 11.0 BUN 11 Creatinine 0.8 Estimated GFR (MDRD) 98 Glucose 87 Calcium 8.7 Iron TIBC Transferrin Ferritin Total Bilirubin 0.4 AST 21 ALT 12 Alkaline Phosphatase 56 Troponin I < 0.04 Total Protein 7.2 Albumin 4.2 Globulin 3.0 Albumin/Globulin Ratio 1.4 Lipase 85 H Urine Color Urine Clarity Urine pH Ur Specific [place] Urine Protein Urine Glucose (UA) Urine Ketones Urine Occult Blood Urine Nitrite Urine Bilirubin Urine Urobilinogen Ur Leukocyte Esterase Ur Microscopic Review Urine Culture Comments Urine Opiates Screen Ur Oxycodone Screen Urine Methadone Screen Ur Propoxyphene Screen Ur Barbiturates Screen Ur Tricyclics Screen Ur Phencyclidine Scrn Ur Amphetamine Screen U Methamphetamines Scrn U Benzodiazepines Scrn Urine Cocaine Screen U Cannabinoids Screen Ethyl Alcohol 148.5 Blood Type Blood Type Recheck Antibody Screen Crossmatch IS Only 11/07/18 11/07/18 11/07/18 19:50 19:50 19:50 WBC RBC Hgb Hct MCV MCH MCHC RDW Plt Count MPV Neut # (Auto) Lymph # (Auto) Foster # (Auto) Eos # (Auto) Baso # (Auto) Absolute Nucleated RBC Nucleated RBC % Platelet Estimate Platelet Morphology RBC Morph Micro Appear PT INR APTT Sodium Potassium Chloride Carbon Dioxide Anion Gap BUN Creatinine Estimated GFR (MDRD) Glucose Calcium Iron < 6 L TIBC 531 H Transferrin 379 H Ferritin 4.4 L Total Bilirubin AST ALT Alkaline Phosphatase Troponin I Total Protein Albumin Globulin Albumin/Globulin Ratio Lipase Urine Color Urine Clarity Urine pH Ur Specific [place] Urine Protein Urine Glucose (UA) Urine Ketones Urine Occult Blood Urine Nitrite Urine Bilirubin Urine Urobilinogen Ur Leukocyte Esterase Ur Microscopic Review Urine Culture Comments Urine Opiates Screen Ur Oxycodone Screen Urine Methadone Screen Ur Propoxyphene Screen Ur Barbiturates Screen Ur Tricyclics Screen Ur Phencyclidine Scrn Ur Amphetamine Screen U Methamphetamines Scrn U Benzodiazepines Scrn Urine Cocaine Screen U Cannabinoids Screen Ethyl Alcohol Blood Type Blood Type Recheck A POSITIVE Antibody Screen Crossmatch IS Only 11/07/18 11/07/18 11/07/18 20:10 20:15 20:15 WBC RBC Hgb Hct MCV MCH MCHC RDW Plt Count MPV Neut # (Auto) Lymph # (Auto) Foster # (Auto) Eos # (Auto) Baso # (Auto) Absolute Nucleated RBC Nucleated RBC % Platelet Estimate Platelet Morphology RBC Morph Micro Appear PT 13.0 H INR 1.2 APTT 25.2 Sodium Potassium Chloride Carbon Dioxide Anion Gap BUN Creatinine Estimated GFR (MDRD) Glucose Calcium Iron TIBC Transferrin Ferritin Total Bilirubin AST ALT Alkaline Phosphatase Troponin I Total Protein Albumin Globulin Albumin/Globulin Ratio Lipase Urine Color LT. YELLOW Urine Clarity CLEAR Urine pH 6.5 Ur Specific [place] <=1.005 Urine Protein NEGATIVE Urine Glucose (UA) NEGATIVE Urine Ketones NEGATIVE Urine Occult Blood NEGATIVE Urine Nitrite NEGATIVE Urine Bilirubin NEGATIVE Urine Urobilinogen 0.2 (NORMAL) Ur Leukocyte Esterase NEGATIVE Ur Microscopic Review NOT INDICATED Urine Culture Comments NOT INDICATED Urine Opiates Screen NEGATIVE Ur Oxycodone Screen NEGATIVE Urine Methadone Screen NEGATIVE Ur Propoxyphene Screen NEGATIVE Ur Barbiturates Screen NEGATIVE Ur Tricyclics Screen NEGATIVE Ur Phencyclidine Scrn NEGATIVE Ur Amphetamine Screen NEGATIVE U Methamphetamines Scrn NEGATIVE U Benzodiazepines Scrn NEGATIVE Urine Cocaine Screen NEGATIVE U Cannabinoids Screen POSITIVE H Ethyl Alcohol Blood Type A POSITIVE Blood Type Recheck Antibody Screen NEGATIVE Crossmatch IS Only See Detail PD MEDICAL DECISION MAKING - ED course Complexity details: reviewed results, re-evaluated patient, considered differential, d/w patient, d/w help desk consultant ED course: Patient presenting after multiple likely mechanical falls earlier today. Feel that patient's use of alcohol is largely contributory. No obvious signs of trauma, systemic illness, or other issues on exam. Patient did complain of neck discomfort and given likely striking of head, as well as this complaint, obtained further imaging of head and neck to evaluate for possible fracture, bleed, or other intracranial injury. CT imaging returned unremarkable. Again, based on exam and complaints, have low suspicion for rib injury, intra-abdominal injury, extremity injury, or spinal/spinal cord injuries. Patient started on IV fluids, but did not require medications. Screening lab work, as well as EKG and drug testing obtained to further evaluate for possible etiologies of syncope/falls. EKG and troponin unremarkable. However, lab work showed significant anemia with hemoglobin of 6.3 and hematocrit of 23, as well as mild hyponatremia. Drug testing returned positive for marijuana and alcohol. Rectal exam then performed which returned guaiac negative. Feel that patient is likely anemic due to his chronic alcohol use. Discussed demonstration of blood products and he is agreeable. Discussed patient with hospitalist, who also agrees to blood transfusion and admission for further treatment and workup. Departure - Departure Disposition: ED Place in Observation Clinical Impression: Anemia Qualifiers: Anemia type: unspecified type Qualified Code(s): D64.9 - Anemia, unspecified Condition: Fair Discharge Date/Time: 11/07/18 22:45
[2018-11-07] MEDS ORDERED: SODIUM CHLORIDE 0.9% 1,000 ML IV ONE (19:43)
[2018-11-07 20:05] LABS: BASOPHILS # (AUTO) 0.2 10^3/uL (0.0-0.1); BASOPHILS % (AUTO) 3.4 %; EOSINOPHILS # (AUTO) 0.2 10^3/uL (0.0-0.7); EOSINOPHILS % (AUTO) 3.2 %; LYMPHOCYTES # (AUTO) 2.1 10^3/uL (1.5-3.5); LYMPHOCYTES % (AUTO) 39.2 %; MEAN CORPUSCULAR HEMOGLOBIN 15.5 pg (27.0-31.0); MEAN CORPUSCULAR HGB CONC 27.4 g/dL (32.0-36.0); MEAN CORPUSCULAR VOLUME 56.4 fL (80.0-94.0); MEAN PLATELET VOLUME 5.8 fL (7.4-11.4); MONOCYTES # (AUTO) 0.4 10^3/uL (0.0-1.0); MONOCYTES % (AUTO) 7.8 %; NEUTROPHILS # (AUTO) 2.5 10^3/uL (1.5-6.6); NEUTROPHILS % (AUTO) 46.4 %; PLT - PLATELET COUNT 518 10^3/uL (130-450); RED BLOOD COUNT 4.07 10^6/uL (4.70-6.10); RED CELL DISTRIBUTION WIDTH 17.3 % (12.0-15.0); WHITE BLOOD COUNT 5.4 x10^3/uL (4.8-10.8)
[2018-11-07 20:09] LABS: HGB - HEMOGLOBIN 6.3 g/dL (14.0-18.0)
[2018-11-07 20:10] LABS: ALBUMIN 4.2 g/dL (3.2-5.5); ALBUMIN/GLOBULIN RATIO 1.4 (1.0-2.2); BILIRUBIN,TOTAL 0.4 mg/dL (0.2-1.0); CALCIUM 8.7 mg/dL (8.5-10.3); CREATININE 0.8 mg/dL (0.6-1.2); TOTAL PROTEIN 7.2 g/dL (6.7-8.2)
[2018-11-07 20:19] LABS: BILIRUBIN,URINE NEGATIVE (NEGATIVE); GLUCOSE, URINE (UA) NEGATIVE (NEGATIVE); KETONES,URINE (UA) NEGATIVE (NEGATIVE); LEUKOCYTE ESTERASE, URINE NEGATIVE (NEGATIVE); MUDS CUTOFF CONCENTRATIONS CUTOFF CONC BELOW:; NITRITE,URINE NEGATIVE (NEGATIVE); OCCULT BLOOD,URINE NEGATIVE (NEGATIVE); PH,URINE 6.5 PH (5.0-7.5); PROTEIN,URINE NEGATIVE (NEGATIVE); UROBILINOGEN,URINE 0.2 (NORMAL) E.U./dL (NORMAL)
[2018-11-07 20:31] LABS: INR 1.2 (0.8-1.2)
[2018-11-07 20:37] LABS: AMPHETAMINE SCREEN,URINE NEGATIVE (NEGATIVE); BENZODIAZEPINES SCREEN, URINE NEGATIVE (NEGATIVE); CLARITY,URINE CLEAR (CLEAR); COCAINE SCREEN URINE NEGATIVE (NEGATIVE); METHADONE SCREEN, URINE NEGATIVE (NEGATIVE); METHAMPHETAMINES SCREEN, URINE NEGATIVE (NEGATIVE); OPIATE SCREEN, URINE NEGATIVE (NEGATIVE); OXYCODONE SCREEN, URINE NEGATIVE (NEGATIVE); PROPOXYPHENE SCREEN, URINE NEGATIVE (NEGATIVE); TRICYCLIC ANTIDEPRESSANT,URINE NEGATIVE (NEGATIVE)
[2018-11-07 20:39] LABS: PARTIAL THROMBOPLASTIN TIME 25.2 secs (24.9-33.3)
[2018-11-07 20:43] LABS: PLATELET ESTIMATE, MANUAL INCREASED (>450,000) (NORMAL); PLATELET MORPHOLOGY NORMAL APPEARANCE (NORMAL)
--- NOTE | 2018-11-07 20:50 | CT Report ---
Reason: fall while intoxicated Procedure Date: 11/07/2018 Accession Number: [id number] / [id number] Procedure: CT - HEAD WO CPT Code: FULL RESULT: EXAM: CT HEAD EXAM DATE: 11/07/2018 08:21 PM. CLINICAL HISTORY: Fall while intoxicated. COMPARISON: HEAD W/O 06/17/2018 7:52 PM. TECHNIQUE: Multiaxial CT images were obtained from the foramen magnum to the vertex. Reformats: Sagittal and coronal. IV contrast: None. In accordance with CT protocol optimization, one or more of the following dose reduction techniques were utilized for this exam: automated exposure control, adjustment of mA and/or KV based on patient size, or use of iterative reconstructive technique. FINDINGS: Parenchyma: No acute intraparenchymal hemorrhage. No evidence of mass or midline shift. Redemonstrated left frontal/parietal encephalomalacia from prior ischemic or traumatic injury. Nonspecific hypodense changes to the periventricular white matter, which can be seen with chronic small vessel ischemic disease. Chronic lacunar infarcts in the left basal ganglia. Extraaxial Spaces: No subdural or epidural collections identified. Ventricles: Ex vacuo dilation of the left lateral ventricle. Sinuses and Orbits: Imaged paranasal sinuses, orbits, and mastoids show no significant abnormality. Bones: No acute fracture visualized. Chronic nasal bone fractures. Other: None. IMPRESSION: No acute intracranial findings. An acute infarct may not be visible by CT. Follow-up examinations are recommended as clinically indicated. [facility]
--- NOTE | 2018-11-07 20:54 | CT Report ---
Reason: fall while intoxicated Procedure Date: 11/07/2018 Accession Number: [id number] / [id number] Procedure: CT - CERVICAL SPINE WO CPT Code: FULL RESULT: EXAM: CT CERVICAL SPINE WITHOUT CONTRAST DATE: 11/07/2018 08:21 PM. HISTORY: Fall while intoxicated. COMPARISONS: CERVICAL SPINE W/O 06/17/2018 7:52 PM. TECHNIQUE: Thin-section axial images were acquired of the cervical spine without contrast. Post-processing: Coronal and sagittal reformats. Other: None. In accordance with CT protocol optimization, one or more of the following dose reduction techniques were utilized for this exam: automated exposure control, adjustment of mA and/or KV based on patient size, or use of iterative reconstructive technique. FINDINGS: Alignment: Mild levoconvex curvature. Bones/discs: The bones are osteopenic. No acute fracture, subluxation, or compression deformity visualized. The craniocervical junction is intact. Facet joint alignment is normal. Mild to moderate multilevel degenerative facet arthropathy. Degenerative disk disease at C3-C4, C5-C6, and C6-C7. Musculature: Unremarkable. Other: The paravertebral and prevertebral soft tissues are unremarkable. The lung apices are clear. IMPRESSION: Osteopenia. No acute fracture or malalignment of the cervical spine. [facility]
[2018-11-07] MEDS ORDERED: SODIUM CHLORIDE FLUSH 0.9% 10 ML SYRINGE IVP PRN (22:00)
--- NOTE | 2018-11-07 22:57 | HISTORY & PHYSICAL EXAMINATION ---
Chief Complaint - Chief Complaint Chief Complaint: s/p fall History of Present Illness - Admitted From Admitted From:: [facility] ED - History Obtained From History obtained from: ED physician, patient Exam Limitations: patient intoxicated - History of Present Illness HPI Comment/Other: Patient seen on 11/07/18 at 22:00pm This history is greatly limited because the patient is a poor historian and currently intoxicated Patient is a 63 y/o male who was brought in by EMS. It is reported that he sustained 2 falls today because he was light-headed and dizzy. It appears he has a history of alcohol abuse. He reports drinking 2 bottles of beer today, however his blood alcohol level was 148. He is very sluggish to respond to questions asked. He lives at [facility]. He was also found to have a hemoglobin of 6.3. He denies abd pain, coffee ground emesis, blood in stool or dark tarry stools. He has never had a colonoscopy. Guaiac test in the ED was negative. However there was little/no stool content in the rectal vault. He denies chest pain, KYRA,n/v/d, fever or chills History - Past Medical History Cardiovascular: reports: Hypertension, High cholesterol, [place] Respiratory: reports: None Neuro: reports: CVA, Seizure disorder Endocrine/Autoimmune: reports: None GI: reports: Pancreatitis : reports: None HEENT: reports: None Psych: reports: None, Other Musculoskeletal: reports: None Derm: reports: None MRSA Hx?: No - Past Surgical History General: reports: Other (Prostatectomy) - Substance History Use Issues: Intoxication Abuse: Recurrent use of substance despite neg consequences: Alcohol Abuse Issues: Intoxication - POLST Patient has POLST: No POLST Status: Full Code Meds/Allgy - Home Medications Home Medications: Ambulatory Orders Medication Instructions Recorded Confirmed Acetaminophen [Tylenol] 650 mg PO PRN PRN 08/30/17 08/30/17 Aspirin 325 mg PO DAILY 08/30/17 08/30/17 Metoprolol Succinate [Toprol Xl] 50 mg PO DAILY 08/30/17 08/30/17 guaiFENesin/DEXTROMETHORPHAN 10 ml PO DAILY 08/30/17 08/30/17 [Robitussin Dm] - Allergies Allergies/Adverse Reactions: Allergies Allergy/AdvReac Type Severity Reaction Status Date / Time codeine AdvReac Unknown Verified 11/08/17 22:26 Review of Systems - Constitutional Constitutional: denies: Fever, Chills, Weakness - Eyes Eyes: denies: Blurred vision, Vision loss, Dipolpia - Ears, Nose & Throat Ears, Nose & Throat: denies: Nasal pain, Nasal discharge, Sore throat - Cardiovascular Cariovascular: reports: Lightheadedness. denies: Irregular heart rate, Chest pain, Edema - Respiratory Respiratory: denies: Cough, Sputum production, Wheezing, Hemoptysis, SOB with exertion - Gastrointestinal Gastrointestinal: denies: Abdominal pain, Abdominal distention, Constipation, Diarrhea, Rectal bleeding, Black stools, Bloody stools, Nausea, Vomiting, Otf blood emesis, Coffee grounds emesis, Reflux/heartburn - Genitourinary Genitourinary: reports: Incontinence. denies: Frequency, Urgency, Hematuria - Integumentary Integumentary: denies: Pruritis, Lesions, Dryness - Neurological Neurological: reports: Dizziness, Slurred speech. denies: Headache, Numbness - Psychiatric Psychiatric: denies: Depression, Anxiety - Endocrine Endocrine: denies: Polyuria, Polydypsia - Hematologic/Lymphatic Hematologic/Lymphatic: reports: Anemia. denies: Bruising, Petechiae Prior Level of Functionality: Lives at [facility] Exam - Vital Signs Reviewed Vital Signs: Yes Vital Signs: Vital Signs x48h Temp Pulse Resp BP Pulse Ox 11/07/18 22:21 36.7 C 78 16 133/60 H 98 11/07/18 22:11 36.6 C 84 18 129/65 98 11/07/18 22:03 36.6 C 70 22 129/65 97 11/07/18 21:05 73 19 127/57 L 100 11/07/18 19:05 36.2 C L 75 18 131/70 H 100 11/07/18 19:00 36.2 C L 75 18 131/70 H 100 - Physical Exam General Appearance: positive: No acute distress, Other (Awake, but sluggish response, slurred words, intoxicated) Eyes Bilateral: positive: Normal inspection, PERRL, EOMI. negative: No scleral icterus ENT: positive: ENT inspection nml, Pharynx nml Neck: positive: Nml inspection, No JVD, Trachea midline Respiratory: positive: Chest non-tender, No respiratory distress, Breath sounds nml. negative: Wheezes, Rhonchi Cardiovascular: positive: Regular rate & rhythm, No murmur Abdomen: positive: Non-tender, Nml bowel sounds, No distention. negative: Guarding, Rebound Rectal: positive: Stool - heme NEG Back: positive: Nml inspection Skin: positive: Color nml, No rash, Warm, Dry Extremities: positive: Non-tender, Nml appearance, No pedal edema Neurologic/Psychiatric: positive: Other (Oriented to self, awake but not oriented to reason for presentation to hospital) Conclusion/Plan - Problem List (1) Anemia Conclusion/Plan: Microcytic. Suspect Iron Deficiency Anemia Given absence of GI bleed and microcytosis Iron, TIBC, ferritin and transferrin levels pending If low, will place patient on on Iron supplement Fecal occult blood pending Patient being transfused 2 units PRBC. Will recheck CBC in the am Patient denies ever undergoing a colonoscopy Patient will need outpatient follow up for colonoscopy Qualifiers: Anemia type: unspecified type Qualified Code(s): D64.9 - Anemia, unspecified (2) Alcohol intoxication Conclusion/Plan: Currently still intoxicated Patient not likely to withdraw at the moment However, will consider CIWA protocol if patient stays in the hospital for 2 or more days Will check Vitamin B12 and folate Qualifiers: Complication of substance-induced condition: uncomplicated Qualified Code(s): F10.920 - Alcohol use, unspecified with intoxication, uncomplicated (3) Fall Conclusion/Plan: Likely due to intoxication Patient cleared in the ED. CT scan of brain and neck unremarkable Up with assist only Qualifiers: Encounter type: initial encounter Qualified Code(s): W19.XXXA - Unspecified fall, initial encounter (4) Hypertension Conclusion/Plan: Currently normotensive Pt supposed to be on metoprolol. Unclear if compliant - Lab Results Fish Bones: 11/07/18 19:50 11/07/18 19:50 Core Measures - Anticipated LOS I expect patient to be DC'd or transferred within 96 hours.: Yes - DVT/VTE - Prophylaxis VTE/DVT Device ordered at admit?: Yes VTE/DVT Prophylaxis med ordered at admit?: No Not Ordered - Medical Reason: Contraindicated
[2018-11-07 23:27] LABS: IRON < 6 ug/dL (45-182); TOTAL IRON BINDING CAPACITY 531 ug/dL (250-450); TRANSFERRIN 379 mg/dL (180-329)
[2018-11-07] MEDS: SODIUM CHLORIDE FLUSH 0.9% 10 ML SYRINGE IVP SCH (23:35)
[2018-11-08] MEDS ORDERED: SODIUM CHLORIDE 0.9% 500 ML IV ONE (01:31)
[2018-11-08] MEDS: SODIUM CHLORIDE FLUSH 0.9% 10 ML SYRINGE IVP SCH (05:00)
[2018-11-08] MEDS ORDERED: PANTOPRAZOLE 40 MG VIAL IVP SCH (07:00)
[2018-11-08 07:20] LABS: BASOPHILS % (AUTO) 2.1 %; EOSINOPHILS % (AUTO) 2.6 %; HGB - HEMOGLOBIN 8.5 g/dL (14.0-18.0); MEAN CORPUSCULAR HEMOGLOBIN 18.8 pg (27.0-31.0); MEAN CORPUSCULAR HGB CONC 30.2 g/dL (32.0-36.0); MEAN CORPUSCULAR VOLUME 62.3 fL (80.0-94.0); MEAN PLATELET VOLUME 5.8 fL (7.4-11.4); MONOCYTES % (AUTO) 10.6 %; NEUTROPHILS % (AUTO) 53.7 %; PLT - PLATELET COUNT 478 10^3/uL (130-450); RED BLOOD COUNT 4.51 10^6/uL (4.70-6.10); RED CELL DISTRIBUTION WIDTH 25.4 % (12.0-15.0)
[2018-11-08 07:23] LABS: CALCIUM 8.5 mg/dL (8.5-10.3); CREATININE 0.8 mg/dL (0.6-1.2); MAGNESIUM 2.1 mg/dL (1.7-2.8)
[2018-11-08 07:25] LABS: ABNORMAL LYMPHS % (MANUAL) 0 %; BAND NEUTROPHILS % (MANUAL) 0 %
[2018-11-08] MEDS ORDERED: FERROUS SULFATE 325 MG TABLET PO SCH (08:00)
[2018-11-08 08:11] LABS: BASOPHILS # (MANUAL) 0.2 10^3/uL (0-0.1); BASOPHILS % (MANUAL) 4 %; EOSINOPHILS # (MANUAL) 0.3 10^3/uL (0-0.7); LYMPHOCYTES # (MANUAL) 1.4 10^3/uL (1.5-3.5); LYMPHOCYTES % (MANUAL) 23 %; MONOCYTES # (MANUAL) 0.4 10^3/uL (0.0-1.0); NEUTROPHILS # (MANUAL) 3.7 10^3/uL (1.5-6.6); NEUTROPHILS % (MANUAL) 62 %
[2018-11-08 08:14] LABS: DIFFERENTIAL COMMENT MANUAL DIFFERENTIAL; PLATELET ESTIMATE, MANUAL INCREASED (>450,000) (NORMAL); PLATELET MORPHOLOGY NORMAL APPEARANCE (NORMAL)
[2018-11-08] MEDS ORDERED: POLYETHYLENE GLYCOL 3350 17 GM PACKET PO SCH (09:00)
[2018-11-08] MEDS ORDERED: ACETAMINOPHEN 325 MG TABLET PO PRN (11:44)
[2018-11-08 12:55] LABS: HGB - HEMOGLOBIN 8.9 g/dL (14.0-18.0)
--- NOTE | 2018-11-08 14:12 | Discharge Plan ---
Discharge Plan Disposition: Home, Self Care Condition: Fair Prescriptions: Famotidine [Pepcid] 40 mg PO DAILY #30 tablet Ferrous Gluconate [Iron] 240 mg PO DAILY #30 tablet Thiamine [Vitamin B-1] 100 mg PO DAILY #30 tablet Diet: Regular Activity Restrictions: Activity as Tolerated Shower Restrictions: No Instruction Topics: Anemia Additional Instructions or Follow Up instructions: You were here for severe anemia and needed blood transfusions. New prescriptions for Iron and Thiamine replacement and a stomach pill were prescribed for you. You may restart your Lisinopril, but stop taking the daily aspirin, as it may be causing intestinal bleeding. See your PCP for further evaluation and management of the anemia. If you do not have a PCP, a list of providers was given to you to contact and see in the office. No Smoking: If you smoke, Please STOP! Call for help.
--- NOTE | 2018-11-08 15:39 | Discharge Plan ---
"Discharge Plan for SNF / [facility] - Discharge Plan And Transition Orders Disposition: 03 SNF DC/Xfer Condition: Fair Allergies and Adverse Reactions: Allergies Allergy/AdvReac Type Severity Reaction Status Date / Time codeine AdvReac Unknown Verified 11/08/17 22:26 - SNF / CARE HOME Transition Orders Admit to (Facility): [facility] Discharge Diagnosis: 1) Iron deficiency anemia, requiring transfusion 2) Alcoholic intoxication 3) Hx of HTN 4) Fall at home Medicare Certification Statement: I certify that [facility] care is medically necessary on a c ontinuing basis for any of the conditions for which she/he is receiving care during hospitalization. Notify PCP of admission and forward orders to primary provider for signature. Weight on admission and: Weekly Call PCP immediately if weight increases by: 5 kg Other Notification Orders: Call PCP immediately if patient develops dyspnea, chest pain/tightness or edema. House Bowel Program: Yes Additional Bowel Program Orders: If no BM after 2 days, nurse may give M.O.M. 30ml PO PRN and/or ducolax Supp 1 ND and/or SEGUNDO 250mg P.O., and/or senna 1-2 tabs PO. On day 3 nurse may give repeat above order until residents constipation is resolved. Annual Influenza Vaccine (between Apr 11 and November 08): Yes Two-step PPD per [facility] [phone] or approved exception documents: Yes Medication Orders: PLEASE REFER TO THE DISCHARGE MEDICATION LIST. Insulin Orders?: No - Medications New Prescriptions: Famotidine [Pepcid] 40 mg PO DAILY #30 tablet Ferrous Gluconate [Iron] 240 mg PO DAILY #30 tablet Thiamine [Vitamin B-1] 100 mg PO DAILY #30 tablet - Diet Type: No added salt Texture: Regular Liquids: Thin May have monthly special meal: Yes - Therapies | Activity Activity: Activity as Tolerated Additional Instructions: You were here for severe anemia and needed blood transfusions. New prescriptions for Iron and Thiamine replacement and a stomach pill were prescribed for you. You may restart your Lisinopril, but stop taking the daily aspirin, as it may be causing intestinal bleeding. See your PCP for further evaluation and management of the anemia. If you do not have a PCP, a contact number for providers was given to you to reach and see in the office."
[2018-11-08 16:19] VITALS: BP 149/78
--- NOTE | 2018-11-08 16:40 | DISCHARGE SUMMARY ---
"Discharge Summary Admit Date: 11/07/18 Discharge Date: 11/08/18 Discharging Provider: Dr Osbaldo Mccray Primary Care Provider: None Code Status: Attempt Resuscitation Condition at Discharge: Fair Discharge Disposition: SNF DC/Xfer Discharge Facility Name: [facility] - DIAGNOSES Admission Diagnoses: Severe iron deficiency anemia Fall Alcohol abuse Alcohol intoxication Hx of HTN Discharge Diagnoses with Status of Each Condition: 1) Severe iron deficiency anemia - His stool was heme (-) in the ER. He got 2U of PRBCs and Hgb went from 6.3 to 8.9 and repeat was stable at 8.8. He was started on oral iron replacement and told to stop taking daily ASA. He was put on Pepcid empirically and he will need outpt w/u with his PCP and/or GI. 2) Fall - it is unclear if this was from intoxication or encephalopathy or anemia. There were no fractures. He c/o headache and Tylenol po controlled the sx. 3) Alcohol abuse - Hx of this, he did not show sighns of withdrawal. He was put on Thiamine po daily. 4) Alcohol intoxication - His serum level showed alcohol present. 5) Hx of HTN - his meds were unchanged. - HPI History of Present Illness: The patient was found down, had fallen from lightheadedness x2. Was brought in by EMS. He was apoor historian. Labs were abnormal and he was placed in Observation status for management. - CONSULTS | PROCEDURES Consultations: None - HOSPITAL COURSE Hospital Course: As above - ALLERGIES Allergies/Adverse Reactions: Allergies Allergy/AdvReac Type Severity Reaction Status Date / Time codeine AdvReac Unknown Verified 11/08/17 22:26 - MEDICATIONS Home Medications: Ambulatory Orders Medication Instructions Recorded Confirmed Famotidine [Pepcid] 40 mg PO DAILY #30 tablet 11/08/18 Ferrous Gluconate [Iron] 240 mg PO DAILY #30 tablet 11/08/18 Lisinopril 40 mg PO DAILY 11/08/18 Thiamine [Vitamin B-1] 100 mg PO DAILY #30 tablet 11/08/18 - PHYSICAL EXAM AT DISCHARGE General Appearance: positive: No acute distress Eyes Bilateral: positive: Normal inspection ENT: positive: No signs of dehydration Neck: positive: Nml inspection Respiratory: positive: No respiratory distress Cardiovascular: positive: Regular rate & rhythm Abdomen: positive: Non-tender Extremities: positive: No pedal edema - LABS Result Diagrams: 11/08/18 12:20 11/08/18 06:40 - FOLLOW UP Follow Up: He was given contact numbers for a PCP. It is unclear where he got his BP prescribed. - TIME SPENT Time Spent in Discharge (Minutes): 30"
== END 2018-11-08 17:00 ==
LOC: EDUNIT# → ED 18:52 → MS2 22:00
PROVIDERS: ADMIT Internal Medicine; ATTEND Internal Medicine
DX: D50.9 Iron deficiency anemia, unspecified (principal); F10.129 Alcohol abuse with intoxication, unspecified; Y90.6 Blood alcohol level of 120-199 mg/100 ml; R51 Headache; I10 Essential (primary) hypertension; E78.00 Pure hypercholesterolemia, unspecified; R32 Unspecified urinary incontinence; G40.909 Epilepsy, unspecified, not intractable, without status epilepticus; W19.XXXA Unspecified fall, initial encounter; Z91.81 History of falling; I25.2 Old myocardial infarction; Z86.73 Personal history of transient ischemic attack (TIA), and cerebral infarction without residual deficits; Z79.82 Long term (current) use of aspirin; Z87.19 Personal history of other diseases of the digestive system; Z87.891 Personal history of nicotine dependence
CPT/HCPCS: 36415; 36430; 70450; 72125; 80048; 80053; 80306; 80320; 81003; 82607; 82728; 82746; 83540; 83690; 83735; 84466; 84484; 85014; 85018; 85025; 85610; 85730; 86850; 86900; 86901; 86920; 93005; 96361; 96374; 99284; A9270; G0378; P9016; 81001; 82274; 87086; 96360

== ENCOUNTER 2018-12-09 19:34 | Outpatient (CLI) | payer MEDICAID | END 2018-12-09 19:35 | disposition EMS.NT | LOC: EMS 19:34 | PROVIDERS: ATTEND Surgery | DX: S09.90XA Unspecified injury of head, initial encounter (principal); W18.30XA Fall on same level, unspecified, initial encounter; Y92.480 Sidewalk as the place of occurrence of the external cause ==

== ENCOUNTER 2018-12-19 00:40 | Outpatient (CLI) | payer MEDICAID | END 2018-12-19 00:41 | disposition critical access hospital (66) | LOC: EMS 00:40 | PROVIDERS: ATTEND Surgery | DX: R46.4 Slowness and poor responsiveness (principal); R53.83 Other fatigue | CPT/HCPCS: A0425; A0429; A0999 ==

== ENCOUNTER 2018-12-19 00:57 | Emergency (ER) | payer MEDICAID ==
--- NOTE | 2018-12-19 01:08 | ED Physician Documentation ---
History of Present Illness - Stated complaint Stated Complaint: ETOH - Chief complaint Chief Complaint: General - History obtained from History obtained from: EMS - History of Present Illness Timing: Unknown - Additonal information Additional information: BIBA. Someone called 911 to report patient was lying on the ground behind [employer] in [place]. Medics found patient on ground of the parking lot with empty, crushed beer cans next to him. Despite this, patient reportedly denied alcohol intake to medics. Patient is drowsy on arrival, does not converse but answers a few questions with nodding/shaking head. Follows simple commands. Review of Systems Unable to obtain: AMS, Intoxicated PD PAST MEDICAL HISTORY - Past Medical History Cardiovascular: Hypertension, High cholesterol, [place] Respiratory: None Neuro: CVA, Seizure disorder Endocrine/Autoimmune: None GI: Pancreatitis : None HEENT: None Psych: None, Other Musculoskeletal: None Derm: None - Past Surgical History Past Surgical History: Yes General: Other (Prostatectomy) - Present Medications Home Medications: Ambulatory Orders Medication Instructions Recorded Confirmed Ferrous Gluconate [Iron] 240 mg PO DAILY #30 tablet 11/08/18 12/19/18 Lisinopril 40 mg PO DAILY 11/08/18 12/19/18 Thiamine [Vitamin B-1] 100 mg PO DAILY #30 tablet 11/08/18 12/19/18 Acetaminophen [Tylenol] 650 mg PO Q6H PRN 12/19/18 12/19/18 Metoprolol Tartrate 50 mg PO 12/19/18 guaiFENesin/DEXTROMETHORPHAN 10 ml PO Q6HR PRN 12/19/18 12/19/18 [Robitussin Dm] - Allergies Allergies/Adverse Reactions: Allergies Allergy/AdvReac Type Severity Reaction Status Date / Time codeine AdvReac Unknown Verified 12/19/18 01:28 - Social History Does the pt smoke?: No Smoking Status: Former smoker Does the pt drink ETOH?: Yes Does the pt have substance abuse?: Yes - Immunizations Immunizations are current?: No Immunizations: TDAP >10years/unknown - POLST Patient has POLST: No POLST Status: Full Code PD ED PE NORMAL - Vitals Vital signs reviewed: Yes - General General: No acute distress, Well developed/nourished, Other (drowsy, awakens to voice or gentle tactile, falls asleep quickly. not vebally communicating, answers a few questions with nodding/shaking head) - HEENT HEENT: Atraumatic, PERRL, EOMI - Neck Neck: Supple, no meningeal sign, No bony TTP - Cardiac Cardiac: RRR, No murmur - Respiratory Respiratory: No respiratory distress, Clear bilaterally - Abdomen Abdomen: Soft, Non distended, Other (right-sided tenderness without rebound or guarding) - Back Back: No spinal TTP - Derm Derm: Normal color, Warm and dry - Neuro Eye Opening: To Voice Motor: Localizes to Pain Verbal: Incomprehensible GCS Score: 10 PD ED PE EXPANDED - Extremities Extremities: Limited ROM, Swelling, Bruising, Abrasion, Right arm, Right elbow Results - Vitals Vitals: Vital Signs - 24 hr 12/19/18 12/19/18 12/19/18 00:58 01:11 02:56 Temperature 36.3 C L Heart Rate 71 69 94 Respiratory 15 15 21 Rate Blood Pressure 125/62 115/65 154/118 H O2 Saturation 99 98 94 12/19/18 12/19/18 12/19/18 05:00 07:00 08:55 Temperature Heart Rate 71 80 93 Respiratory 16 12 16 Rate Blood Pressure 92/61 152/85 H 158/74 H O2 Saturation 93 100 99 Oxygen O2 Source Room air - Labs Labs: Laboratory Tests 12/19/18 12/19/18 12/19/18 01:10 01:10 01:55 WBC 8.4 RBC 5.03 Hgb 10.1 L Hct 33.3 L MCV 66.3 L MCH 20.0 L MCHC 30.2 L RDW 28.4 H Plt Count 424 MPV 8.1 Neut # (Auto) 4.6 Lymph # (Auto) 2.8 Hood # (Auto) 0.6 Eos # (Auto) 0.3 Baso # (Auto) 0.1 Absolute Nucleated RBC 0.01 Nucleated RBC % 0.2 Manual Slide Review Indicated Platelet Estimate NORMAL (130-450,000) RBC Morph Micro Appear DIMORPHIC RBCS Sodium 130 L Potassium 3.9 Chloride 93 L Carbon Dioxide 25 Anion Gap 12.0 BUN 11 Creatinine 0.7 Estimated GFR (MDRD) 114 Glucose 97 Calcium 8.5 Total Bilirubin 0.4 AST 24 ALT 14 Alkaline Phosphatase 88 Total Protein 7.9 Albumin 4.5 Globulin 3.4 Albumin/Globulin Ratio 1.3 Lipase 65 H Urine Color YELLOW Urine Clarity CLEAR Urine pH 6.5 Ur Specific [place] <=1.005 Urine Protein NEGATIVE Urine Glucose (UA) NEGATIVE Urine Ketones NEGATIVE Urine Occult Blood NEGATIVE Urine Nitrite NEGATIVE Urine Bilirubin NEGATIVE Urine Urobilinogen 0.2 (NORMAL) Ur Leukocyte Esterase NEGATIVE Ur Microscopic Review NOT INDICATED Urine Culture Comments NOT INDICATED Urine Opiates Screen NEGATIVE Ur Oxycodone Screen NEGATIVE Urine Methadone Screen NEGATIVE Ur Propoxyphene Screen NEGATIVE Ur Barbiturates Screen NEGATIVE Ur Tricyclics Screen NEGATIVE Ur Phencyclidine Scrn NEGATIVE Ur Amphetamine Screen NEGATIVE U Methamphetamines Scrn NEGATIVE U Benzodiazepines Scrn NEGATIVE Urine Cocaine Screen NEGATIVE U Cannabinoids Screen POSITIVE H Ethyl Alcohol 320.2 - Rads (name of study) CT head Radiology: Prelim report reviewed, See rad report CT A/P Radiology: Prelim report reviewed, See rad report chest xray Radiology: Prelim report reviewed, See rad report right elbow xrays Radiology: Prelim report reviewed, See rad report PD MEDICAL DECISION MAKING - ED course Complexity details: reviewed old records, reviewed results, re-evaluated patient, considered differential ED course: Patient slept for several hours in ED after initial evaluation completed and tests resulted. He gradually became increasingly awake, alert, and responsive and eventually discharged in NAD Departure - Departure Disposition: 01 Home, Self Care Clinical Impression: Alcohol intoxication Qualifiers: Complication of substance-induced condition: with delirium Qualified Code(s): F10.921 - Alcohol use, unspecified with intoxication delirium Closed rib fracture Qualifiers: Encounter type: initial encounter Rib fracture type: single rib Laterality: right Qualified Code(s): S22.31XA - Fracture of one rib, right side, initial encounter for closed fracture Condition: Good Instructions: ED Alcohol Intoxication, ED Fx Rib Follow-Up: Bryce Moy MD [Primary Care Provider] - Within 3 Days Discharge Date/Time: 12/19/18 10:56
[2018-12-19 01:41] LABS: ALBUMIN 4.5 g/dL (3.2-5.5); ALBUMIN/GLOBULIN RATIO 1.3 (1.0-2.2); BILIRUBIN,TOTAL 0.4 mg/dL (0.2-1.0); CALCIUM 8.5 mg/dL (8.5-10.3); CREATININE 0.7 mg/dL (0.6-1.2); TOTAL PROTEIN 7.9 g/dL (6.7-8.2)
[2018-12-19 01:47] LABS: BASOPHILS # (AUTO) 0.1 10^3/uL (0.0-0.1); BASOPHILS % (AUTO) 1.6 %; EOSINOPHILS # (AUTO) 0.3 10^3/uL (0.0-0.7); EOSINOPHILS % (AUTO) 3.7 %; HGB - HEMOGLOBIN 10.1 g/dL (14.0-18.0); LYMPHOCYTES # (AUTO) 2.8 10^3/uL (1.5-3.5); LYMPHOCYTES % (AUTO) 32.8 %; MEAN CORPUSCULAR HGB CONC 30.2 g/dL (32.0-36.0); MEAN CORPUSCULAR VOLUME 66.3 fL (80.0-94.0); MEAN PLATELET VOLUME 8.1 fL (7.4-11.4); MONOCYTES # (AUTO) 0.6 10^3/uL (0.0-1.0); MONOCYTES % (AUTO) 6.6 %; NEUTROPHILS # (AUTO) 4.6 10^3/uL (1.5-6.6); NEUTROPHILS % (AUTO) 55.3 %; PLT - PLATELET COUNT 424 10^3/uL (130-450); RED BLOOD COUNT 5.03 10^6/uL (4.70-6.10); RED CELL DISTRIBUTION WIDTH 28.4 % (12.0-15.0); WHITE BLOOD COUNT 8.4 x10^3/uL (4.8-10.8)
[2018-12-19 02:01] LABS: MUDS CUTOFF CONCENTRATIONS CUTOFF CONC BELOW:
[2018-12-19] MEDS ORDERED: IOVERSOL 320 100 ML VIAL IVP ONE ×2 (02:04→02:59)
[2018-12-19 02:05] LABS: BILIRUBIN,URINE NEGATIVE (NEGATIVE); GLUCOSE, URINE (UA) NEGATIVE (NEGATIVE); KETONES,URINE (UA) NEGATIVE (NEGATIVE); LEUKOCYTE ESTERASE, URINE NEGATIVE (NEGATIVE); NITRITE,URINE NEGATIVE (NEGATIVE); OCCULT BLOOD,URINE NEGATIVE (NEGATIVE); PH,URINE 6.5 PH (5.0-7.5); PROTEIN,URINE NEGATIVE (NEGATIVE); UROBILINOGEN,URINE 0.2 (NORMAL) E.U./dL (NORMAL)
[2018-12-19 02:07] LABS: CLARITY,URINE CLEAR (CLEAR)
[2018-12-19 02:13] LABS: PLATELET ESTIMATE, MANUAL NORMAL (130-450,000) (NORMAL)
[2018-12-19 02:18] LABS: AMPHETAMINE SCREEN,URINE NEGATIVE (NEGATIVE); BENZODIAZEPINES SCREEN, URINE NEGATIVE (NEGATIVE); COCAINE SCREEN URINE NEGATIVE (NEGATIVE); METHADONE SCREEN, URINE NEGATIVE (NEGATIVE); METHAMPHETAMINES SCREEN, URINE NEGATIVE (NEGATIVE); OPIATE SCREEN, URINE NEGATIVE (NEGATIVE); OXYCODONE SCREEN, URINE NEGATIVE (NEGATIVE); PROPOXYPHENE SCREEN, URINE NEGATIVE (NEGATIVE); TRICYCLIC ANTIDEPRESSANT,URINE NEGATIVE (NEGATIVE)
--- NOTE | 2018-12-19 03:14 | CT Report ---
Reason: abd. tenderness, AMS Procedure Date: 12/19/2018 Accession Number: [id number] / [id number] Procedure: CT - Abdomen/Pelvis W CPT Code: FULL RESULT: EXAM: CT ABDOMEN AND PELVIS EXAM DATE: 12/19/2018 02:21 AM. CLINICAL HISTORY: Abd. tenderness, AMS. COMPARISONS: ABDOMEN/PELVIS W/ 04/07/2017 11:13 PM. TECHNIQUE: Routine helical CT imaging was performed through the abdomen and pelvis. IV contrast: 100 ML OPTIRAY 320. Enteric contrast: No. Reconstructions: Coronal and sagittal. In accordance with CT protocol optimization, one or more of the following dose reduction techniques were utilized for this exam: automated exposure control, adjustment of mA and/or KV based on patient size, or use of iterative reconstructive technique. FINDINGS: Lung Bases: Bibasilar atelectasis. Liver: Stable calcifications in the posterior right lobe of the liver. No new hepatic lesion. Gallbladder/Bile Ducts: Unremarkable. Spleen: Normal. Pancreas: Normal. Adrenal Glands: Normal. Kidneys: Cortical cysts. No hydronephrosis or nephrolithiasis. Peritoneal Cavity/Bowel: Normal. No free fluid, free air or adenopathy. No masses or acute inflammatory process. The appendix is well visualized and normal. Pelvic Organs: Postoperative changes of prostatectomy. No pelvic adenopathy or free fluid. Vasculature: Atherosclerotic calcifications. No aneurysm or dissection. Bones: Nondisplaced fracture of the right posterior ninth rib. Other: None. IMPRESSION: Nondisplaced fracture of the right posterior ninth rib. No evidence of solid or hollow organ injury. RADIA
--- NOTE | 2018-12-19 03:24 | XRAY Report ---
Reason: right elbow swelling, tenderness Procedure Date: 12/19/2018 Accession Number: [id number] / [id number] Procedure: XR - Elbow 3 View RT CPT Code: FULL RESULT: EXAM: RIGHT ELBOW RADIOGRAPHY EXAM DATE: 12/19/2018 03:04 AM. CLINICAL HISTORY: Right elbow swelling, tenderness. COMPARISON: None. TECHNIQUE: 3 views. FINDINGS: Bones: Normal. No fractures or bone lesions. Joints: Normal. No effusion. No subluxation. Soft Tissues: Soft tissue swelling. No radiopaque foreign body. IMPRESSION: Soft tissue swelling, but no evidence of acute fracture. RADIA
--- NOTE | 2018-12-19 03:44 | CT Report ---
Reason: AMS Procedure Date: 12/19/2018 Accession Number: [id number] / [id number] Procedure: CT - HEAD WO CPT Code: FULL RESULT: EXAM: CT HEAD EXAM DATE: 12/19/2018 03:02 AM. CLINICAL HISTORY: Altered mental status. COMPARISON: CERVICAL SPINE W/O 11/07/2018 8:21 PM HEAD W/O 11/07/2018 8:21 PM. TECHNIQUE: Multiaxial CT images were obtained from the foramen magnum to the vertex. Reformats: Sagittal and coronal. IV contrast: None. In accordance with CT protocol optimization, one or more of the following dose reduction techniques were utilized for this exam: automated exposure control, adjustment of mA and/or KV based on patient size, or use of iterative reconstructive technique. FINDINGS: Parenchyma: Multifocal areas of encephalomalacia in the left frontal, parietal, and temporal lobes is stable. No intraparenchymal hemorrhage. The shore-white matter differentiation is distinct elsewhere in the brain. Mild diffuse chronic microangiopathic white matter changes are evident. Extraaxial Spaces: Normal for age. No subdural or epidural collections identified. Ventricles: The ventricles and cortical sulci are moderately enlarged, consistent with age-related tissue loss. Superimposed ex vacuo dilation of the left lateral ventricle is again noted related to adjacent encephalomalacia. Sinuses and orbits: Postsurgical changes from cataract extractions are present in the globes. The paranasal and mastoid sinuses are not opacified. Bones: No evidence of fracture or calvarial defect. Other: Moderate intracranial atherosclerosis is present. IMPRESSION: 1. No acute intracranial process. 2. Stable multifocal encephalomalacia in the left cerebral hemisphere compared to the brain CT from 11/07/2018. RADIA
--- NOTE | 2018-12-19 03:45 | XRAY Report ---
Reason: AMS, found on ground outside Procedure Date: 12/19/2018 Accession Number: [id number] / [id number] Procedure: XR - Chest 2 View X-Ray CPT Code: 65775 FULL RESULT: EXAM: CHEST RADIOGRAPHY EXAM DATE: 12/19/2018 03:06 AM. CLINICAL HISTORY: AMS, found on ground outside. COMPARISON: CHEST 2 VIEW 08/30/2017 4:58 AM. TECHNIQUE: 2 views. FINDINGS: Lungs/Pleura: Patchy left basilar atelectasis. No effusion or pneumothorax. Mediastinum: Heart and mediastinal contours are unremarkable. Other: None. IMPRESSION: Patchy left basilar atelectasis. RADIA
[2018-12-19 08:57] VITALS: BP 158/74
== END 2018-12-19 10:56 | disposition home or self-care (01) ==
LOC: EDUNIT# → EDBD → ED 00:57
DX: F10.921 Alcohol use, unspecified with intoxication delirium (principal); S22.31XA Fracture of one rib, right side, initial encounter for closed fracture; S50.311A Abrasion of right elbow, initial encounter; X58.XXXA Exposure to other specified factors, initial encounter; I10 Essential (primary) hypertension; E78.00 Pure hypercholesterolemia, unspecified; G40.909 Epilepsy, unspecified, not intractable, without status epilepticus; Z86.73 Personal history of transient ischemic attack (TIA), and cerebral infarction without residual deficits; I25.2 Old myocardial infarction; Z87.891 Personal history of nicotine dependence; Z87.19 Personal history of other diseases of the digestive system
CPT/HCPCS: 36415; 70450; 71046; 73080; 74177; 80053; 80306; 80320; 81003; 83690; 85025; 99284; Q9967; 81001; 87086

== ENCOUNTER 2019-01-21 11:23 | Outpatient (CLI) | payer MEDICAID | END 2019-01-21 11:24 | disposition critical access hospital (66) | LOC: EMS 11:23 | PROVIDERS: ATTEND Surgery | DX: M79.605 Pain in left leg (principal); M79.641 Pain in right hand; M79.89 Other specified soft tissue disorders | CPT/HCPCS: A0425; A0429; A0999 ==

== ENCOUNTER 2019-01-21 11:38 | Inpatient (IN) | payer MEDICAID ==
--- NOTE | 2019-01-21 12:21 | ED Physician Documentation ---
History of Present Illness - Stated complaint Stated Complaint: GLF - Chief complaint Chief Complaint: Trauma Ext - History obtained from History obtained from: Patient, Other (report from psychiatric hospital) - Additonal information Additional information: Limited history as patient not very communicative. Asked me if I would like to have a drink with him. He reportedly has had a fall where he lives at "[facility]". He reportedly has a hx of alcohol abuse and falls. He denies any pain or injury today. He has no complaints. He was sent here by [facility] for a medical exam. Review of Systems Ten Systems: 10 systems reviewed and negative Constitutional: denies: Fever Cardiac: denies: Chest pain / pressure Respiratory: denies: Dyspnea GI: denies: Abdominal Pain Musculoskeletal: reports: Reviewed and negative Neurologic: denies: Focal weakness, Numbness, Near syncope, Syncope, Seizure, Head injury, LOC PD PAST MEDICAL HISTORY - Past Medical History Past Medical History: Yes Cardiovascular: Hypertension, High cholesterol, [place] Respiratory: None Neuro: CVA, Seizure disorder Endocrine/Autoimmune: None GI: Pancreatitis : None HEENT: None Psych: None, Other Musculoskeletal: None Derm: None - Past Surgical History Past Surgical History: Yes General: Other (Prostatectomy) - Present Medications Home Medications: Ambulatory Orders Medication Instructions Recorded Confirmed Ferrous Gluconate [Iron] 240 mg PO DAILY #30 tablet 11/08/18 12/19/18 Lisinopril 40 mg PO DAILY 11/08/18 12/19/18 Thiamine [Vitamin B-1] 100 mg PO DAILY #30 tablet 11/08/18 12/19/18 Acetaminophen [Tylenol] 650 mg PO Q6H PRN 12/19/18 12/19/18 Metoprolol Tartrate 50 mg PO 12/19/18 guaiFENesin/DEXTROMETHORPHAN 10 ml PO Q6HR PRN 12/19/18 12/19/18 [Robitussin Dm] - Allergies Allergies/Adverse Reactions: Allergies Allergy/AdvReac Type Severity Reaction Status Date / Time codeine AdvReac Unknown Verified 01/21/19 11:48 - Social History Does the pt smoke?: No Smoking Status: Former smoker Does the pt drink ETOH?: Yes Does the pt have substance abuse?: Yes - Immunizations Immunizations are current?: No Immunizations: TDAP >10years/unknown - POLST Patient has POLST: No POLST Status: Full Code PD ED PE NORMAL - Vitals Vital signs reviewed: Yes - General General: Alert and oriented X 3, No acute distress, Well developed/nourished - HEENT HEENT: Atraumatic, PERRL, EOMI, Pharynx benign - Neck Neck: Supple, no meningeal sign, No bony TTP, No JVD - Cardiac Cardiac: RRR, No murmur, No gallop, No rub - Respiratory Respiratory: No respiratory distress, Clear bilaterally - Abdomen Abdomen: Soft, Non tender, Non distended - Male Male : Deferred - Rectal Rectal: Deferred - Derm Derm: Normal color, Warm and dry, No rash, Other (no abrasions bruises or lacerations ) - Extremities Extremities: No deformity, No tenderness to palpate, Normal ROM s pain, No edema, No calf tenderness / cord - Neuro Neuro: Alert and oriented X 3, Other (clumsy right hand. but normal sensation and strength throughout. ) Eye Opening: Spontaneous Motor: Obeys Commands Verbal: Oriented (to self, answers some questions) GCS Score: 15 - Psych Psych: Other (flat affect ) PD ED PE EXPANDED - Eyes Eyes: PERRL, EOMI - Neuro Neuro: Normal Sensation, PERRL, Other (able to tract fingers, EOMI, pt doesn't speak much but doesn't, speech somewhat slurred but per "[facility] home" this is baseline. unsteady gait). No: CNII-XII intact, Dyscongugate gaze, Nystagmus, Cerebellar nl Results - Vitals Vitals: Vital Signs - 24 hr 01/21/19 01/21/19 11:44 13:20 Temperature 36.7 C Heart Rate 63 55 L Respiratory 16 15 Rate Blood Pressure 123/88 H 137/73 H O2 Saturation 100 99 Oxygen O2 Source Room air - EKG (time done) 14:16 Rate: Rate (enter#) Rhythm: NSR [place]: Normal Intervals: Normal PA, QRS normal QRS: LVH Ischemia: Normal ST segments Computer interpretation: Agree with computer - Labs Labs: Laboratory Tests 01/21/19 01/21/19 13:10 13:10 WBC 7.7 RBC 5.02 Hgb 11.3 L Hct 36.5 L MCV 72.8 L MCH 22.5 L MCHC 30.9 L RDW 25.0 H Plt Count 474 H MPV 6.1 L Neut # (Auto) 5.7 Lymph # (Auto) 1.1 L [place] # (Auto) 0.7 Eos # (Auto) 0.0 Baso # (Auto) 0.1 Absolute Nucleated RBC 0.00 Nucleated RBC % 0.0 Manual Slide Review Indicated WBC Morphology NORMAL APPEARANCE RBC Morph Micro Appear 1+ MICROCYTOSIS Sodium 135 Potassium 4.4 Chloride 99 L Carbon Dioxide 25 Anion Gap 11.0 BUN 24 H Creatinine 1.0 Estimated GFR (MDRD) 75 L Glucose 101 H Calcium 9.2 Ethyl Alcohol < 5.0 - Rads (name of study) No standard instances Radiology: Final report received (head ct -subacute or acute occipital infarct) PD MEDICAL DECISION MAKING - ED course Complexity details: considered differential ED course: ddx - general medical exam, alcoholism, fall without injury, fracture, head injury, intracranial injury 63 y/o M sent from his assisted living facility for falls, requesting a medical exam. Pt's exam here shows no significant trauma and he has no complaints. He does have a R hand that appears to be contracted, this is reportedly not chronic per his facility. But he is unable to walk unassisted which is not normal for him. Pt has hx of chronic excessive alcohol use. Reportedly doesn't want to use his R hand for a few days. He gets drunk and falls frequently. He doesn't speak much at baseline. But will answer questions. he does have a hx of strokes in the past. he walks unassisted typically. Pt last seen walking normally at least 2 days ago. He is not a candidate therefore for TPA. He was given aspirin here. EKG here is normal. He needs admission for further management, swallow study, rehab, and likely placement in a snf for a higher level of care. - TPA CVA checklist Inclusion crititeria: positive: Sig neuro deficit, CT no bleed. negative: Onset know < 4.5 hr (onset 1-2 days ago) Departure - Departure Disposition: 66 [facility] DC/Xfer Clinical Impression: CVA (cerebral vascular accident) Qualifiers: CVA mechanism: unspecified Qualified Code(s): I63.9 - Cerebral infarction, unspecified Condition: Serious Record reviewed to determine appropriate education?: Yes
[2019-01-21 13:24] LABS: BASOPHILS # (AUTO) 0.1 10^3/uL (0.0-0.1); BASOPHILS % (AUTO) 1.1 %; EOSINOPHILS % (AUTO) 0.6 %; HGB - HEMOGLOBIN 11.3 g/dL (14.0-18.0); LYMPHOCYTES # (AUTO) 1.1 10^3/uL (1.5-3.5); LYMPHOCYTES % (AUTO) 14.7 %; MEAN CORPUSCULAR HEMOGLOBIN 22.5 pg (27.0-31.0); MEAN CORPUSCULAR HGB CONC 30.9 g/dL (32.0-36.0); MEAN CORPUSCULAR VOLUME 72.8 fL (80.0-94.0); MEAN PLATELET VOLUME 6.1 fL (7.4-11.4); MONOCYTES # (AUTO) 0.7 10^3/uL (0.0-1.0); MONOCYTES % (AUTO) 9.1 %; NEUTROPHILS # (AUTO) 5.7 10^3/uL (1.5-6.6); NEUTROPHILS % (AUTO) 74.5 %; PLT - PLATELET COUNT 474 10^3/uL (130-450); RED BLOOD COUNT 5.02 10^6/uL (4.70-6.10); WHITE BLOOD COUNT 7.7 x10^3/uL (4.8-10.8)
[2019-01-21 13:28] LABS: BUN - BLOOD UREA NITROGEN 24 mg/dL (6-20); CALCIUM 9.2 mg/dL (8.5-10.3); CARBON DIOXIDE - CO2 25 mmol/L (21-32); CHLORIDE 99 mmol/L (101-111); GFR - MDRD 75 (>89); GLUCOSE 101 mg/dL (70-100); SODIUM 135 mmol/L (135-145)
--- NOTE | 2019-01-21 13:56 | CT Report ---
Reason: unstable gait, falls Procedure Date: 01/21/2019 Accession Number: [id number] / [id number] Procedure: CT - HEAD WO CPT Code: FULL RESULT: EXAM: CT HEAD EXAM DATE: 01/21/2019 01:31 PM. CLINICAL HISTORY: Unstable gait, falls. COMPARISON: HEAD W/O 12/19/2018 2:14 AM. TECHNIQUE: Multiaxial CT images were obtained from the foramen magnum to the vertex. Reformats: Sagittal and coronal. IV contrast: None. In accordance with CT protocol optimization, one or more of the following dose reduction techniques were utilized for this exam: automated exposure control, adjustment of mA and/or KV based on patient size, or use of iterative reconstructive technique. FINDINGS: Parenchyma: No change in previously described left frontal encephalomalacia with dilatation of left lateral ventricle ex vacuo. Interval development of an acute or subacute left occipital infarct currently measuring 3 x 6 cm diameter. There is minimal mass-effect with minimal compression of the posterior horn lateral ventricle. No associated hemorrhagic component. Extraaxial Spaces: Normal for age. No subdural or epidural collections identified. Ventricles: Normal in size and position. Sinuses and Orbits: Imaged paranasal sinuses, orbits, and mastoids show no significant abnormality. Bones: No evidence of fracture or calvarial defect. Other: None. IMPRESSION: 1. The primary finding is interval development of an acute to subacute infarction of the left occipital lobe as described above. There is minimal mass-effect and no hemorrhagic component. 2. Stable and unchanged left frontal encephalomalacia. RADIA
[2019-01-21] MEDS ORDERED: ASPIRIN CHEW 81 MG TABLET PO STA (14:14)
[2019-01-21] MEDS ORDERED: SODIUM CHLORIDE FLUSH 0.9% 10 ML SYRINGE IVP PRN (14:31)
[2019-01-21] MEDS ORDERED: ONDANSETRON 4 MG/2 ML VIAL IVP PRN (14:31)
--- NOTE | 2019-01-21 14:58 | XRAY Report ---
Reason: fall, possible hand trauma Procedure Date: 01/21/2019 Accession Number: [id number] / [id number] Procedure: XR - Hand 3 View RT CPT Code: FULL RESULT: EXAM: RIGHT HAND RADIOGRAPHY EXAM DATE: 01/21/2019 02:27 PM. CLINICAL HISTORY: Hand pain from recent fall. COMPARISON: ELBOW 3 VIEW RT 12/19/2018 2:32 AM. TECHNIQUE: 3 views. FINDINGS: Bones: Nondisplaced comminuted primarily longitudinal fracture mid right third metacarpal. No other significant only. Joints: Normal. No subluxations. Soft Tissues: Normal. No soft tissue swelling. IMPRESSION: Acute nondisplaced comminuted mid right third metacarpal shaft fracture. RADIA
[2019-01-21] MEDS ORDERED: KETOROLAC 10 MG TABLET PO PRN (15:10)
[2019-01-21 15:17] LABS: INR 1.2 (0.8-1.2); PT - PROTHROMBIN TIME 13.1 secs (9.9-12.6)
--- NOTE | 2019-01-21 15:33 | HISTORY & PHYSICAL EXAMINATION ---
Chief Complaint - Chief Complaint Chief Complaint: fall History of Present Illness - Admitted From Admitted From:: ER - History Obtained From History obtained from: pt, but pt is very poor historian - History of Present Illness HPI Comment/Other: Mr. Romero is a 63-yrs old male with a PMH significant for HTN, HLD, [place], CVA, seizure, who was sent by [facility] for medical examination. Pt is a poor history. He report he sometime cigarette smoke and some time drink alcohol. He can not tell when the last time he had a drink. He report he usually use his right hand to drink, but now he can not use his right hand because of pain. He also report he has left hip pain when he tried to move. Upon examination, pt did present mild weakness on his right side on his upper and lower extremities, and has a sluggish speech. Pt swallowed Aspirin medication without difficult reporte d at ER. Pt was reported 48 hours ago he began to have ataxia and unsteady walk in [facility]. Lab examination reveals HGB 11.3, slight elevated BUN [address] of head reveals acute or subacute infarction of the left occipital lobe. There is minimal mass-effect and no hemorrhagic component. Xray of his right hand reveals acute nondisplaced comminuted mid right third metacarpal shaft fracture. Left hip Xray is pending now. Orthopedics was consulted by ER provider. Pt is afebrile and hemodynamic stable now. pt was admitted for further evaluation and treatment of acute stroke and fall History - Past Medical History Cardiovascular: reports: Hypertension, High cholesterol, [place] Respiratory: reports: None Neuro: reports: CVA, Seizure disorder Endocrine/Autoimmune: reports: None GI: reports: Pancreatitis : reports: None HEENT: reports: None Psych: reports: None, Other Musculoskeletal: reports: None Derm: reports: None MRSA Hx?: No - Past Surgical History General: reports: Other (Prostatectomy) - Family & Social History Family History Comment/Other: pt is poor historian, he could not report his family hx - Substance History Use Issues: Intoxication Abuse: Recurrent use of substance despite neg consequences: Alcohol - POLST Patient has POLST: No POLST Status: Full Code Meds/Allgy - Home Medications Home Medications: Ambulatory Orders Medication Instructions Recorded Confirmed Ferrous Gluconate [Iron] 240 mg PO DAILY #30 tablet 11/08/18 12/19/18 Lisinopril 40 mg PO DAILY 11/08/18 12/19/18 Thiamine [Vitamin B-1] 100 mg PO DAILY #30 tablet 11/08/18 12/19/18 Acetaminophen [Tylenol] 650 mg PO Q6H PRN 12/19/18 12/19/18 Metoprolol Tartrate 50 mg PO 12/19/18 guaiFENesin/DEXTROMETHORPHAN 10 ml PO Q6HR PRN 12/19/18 12/19/18 [Robitussin Dm] - Allergies Allergies/Adverse Reactions: Allergies Allergy/AdvReac Type Severity Reaction Status Date / Time codeine AdvReac Unknown Verified 01/21/19 11:48 Review of Systems - Constitutional Constitutional: denies: Fever, Chills - Eyes Eyes: denies: Pain, Field loss, Vision loss - Ears, Nose & Throat Ears, Nose & Throat: denies: Ear pain, Hearing loss, Hearing aids, Nosebleeds, Bleeding gums - Cardiovascular Cariovascular: denies: Irregular heart rate, Palpitations, Chest pain, Edema, Lightheadedness, Syncope, Exertional dyspnea, Decr. exercise tolerance - Respiratory Respiratory: denies: Cough, Sputum production, Wheezing, Snoring, Hemoptysis, Orthopnea, SOB at rest - Gastrointestinal Gastrointestinal: denies: Abdominal pain, Constipation, Diarrhea, Change in bowel habits, Rectal bleeding, Black stools, Bloody stools, Nausea, Vomiting, Otf blood emesis - Genitourinary Genitourinary: denies: Dysuria, Frequency, Urgency, Flank pain - Musculoskeletal Musculoskeletal: reports: Muscle pain, Limited range of motion - Integumentary Integumentary: denies: Rash, Dryness - Neurological Neurological: reports: Focal weakness. denies: Headache, Dizziness, Numbness, Seizures - Psychiatric Psychiatric: denies: Depression, Anxiety, Suicidal, Delusions, Hallucinations - Endocrine Endocrine: denies: Polyuria, Polydypsia - Hematologic/Lymphatic Hematologic/Lymphatic: denies: Lymphadenopathy, Recurrent infections Exam - Vital Signs Reviewed Vital Signs: Yes Vital Signs: Vital Signs x48h Temp Pulse Resp BP Pulse Ox 01/21/19 13:20 55 L 15 137/73 H 99 01/21/19 11:44 36.7 C 63 16 123/88 H 100 - Physical Exam General Appearance: positive: No acute distress, Mild distress. negative: Lethargic Eyes Bilateral: positive: Normal inspection, PERRL, EOMI, No lid inflammation, Conjunctivae nml ENT: positive: ENT inspection nml, Pharynx nml, No signs of dehydration. negative: Purulent nasal drainage, Pharyngeal erythema, Oral lesions Neck: positive: Nml inspection, Thyroid nml, No JVD, Trachea midline. negative: Thyromegaly, Lymphadenopathy (R), Lymphadenopathy (L), Stiff neck, Swelling/bruising, Tracheal deviation Respiratory: positive: Chest non-tender, No respiratory distress, Wheezes, Rales, Rhonchi Cardiovascular: positive: Regular rate & rhythm, No murmur, No gallop. negative: Irregularly irregular, Extrasystoles, Tachycardia, Bradycardia, JVD present, Systolic murmur, Diastolic murmur Peripheral Pulses: positive: 2+ Abdomen: positive: Non-tender, No organomegaly, Nml bowel sounds, No distention. negative: Tenderness, Guarding, Rebound Back: positive: Nml inspection. negative: CVA tenderness (R), CVA tenderness (L) Skin: positive: Color nml, No rash, Warm, Dry. negative: Cyanosis, Diaphoresis, Pallor Extremities: negative: Calf tenderness, Ese's sign/cords Neurologic/Psychiatric: positive: Weakness, Slurred/abnml speech. negative: Se nsory loss, Facial droop Sepsis Event Note (H) - Evaluation Current Stage of Sepsis: Ruled out Conclusion/Plan - Problem List (1) CVA (cerebral vascular accident) Conclusion/Plan: pt has fall, and ataxia with unsteady balance at [place] home happened 48 hours ago. pt present right extremities weakness. CT of head reveals acute or subacute stroke on left brain occipital lobe order MRI, US of Carotid, ECHO, Stroke workup tele and vital monitor Daily Aspirin and Lipitor 80mg daily lipid panel test, daily lab monitor PT/OT and social consult. pt seems to have good swallow now Qualifiers: CVA mechanism: unspecified Qualified Code(s): I63.9 - Cerebral infarction, unspecified (2) Fall Conclusion/Plan: pt was report to fall. pt report he has pain at right hand and left hip. pt's Right hand has third metacarpal shaft fracture. Xray of right hip is pending consulted with orthopedics by ER, will followup pain control. pt is allergy to codein consult with PT/OT Qualifiers: Encounter type: initial encounter Qualified Code(s): W19.XXXA - Unspecified fall, initial encounter (3) Alcohol abuse Conclusion/Plan: long history of alcohol abuse, frequent to be sent to ER for alcohol intoxication. today his alcohol level is unremarkable add , and reconcile B-1 will consider CIWA protocol if pt present alcohol withdrawal consult with social service agency director for alcohol quitting (4) Anemia Conclusion/Plan: chronic iron deficiency anemia. Today his HGB is 11.1. pt has home iron pill reconcile home meds daily lab monitor Qualifiers: Anemia type: unspecified type Qualified Code(s): D64.9 - Anemia, unspecified (5) Hypertension Conclusion/Plan: stable now. pt has acute stroke, will allow BP rise, and add PRN hydralinize (6) Dehydration Conclusion/Plan: pt clinically present dry mouth, pt has slight elevated BUN and creatinine hydration with NS, daily lab monitor - Lab Results Fish Bones: 01/21/19 13:10 01/21/19 13:10 Core Measures - Anticipated LOS I expect patient to be DC'd or transferred within 96 hours.: Yes - DVT/VTE - Prophylaxis VTE/DVT Device ordered at admit?: Yes VTE/DVT Prophylaxis med ordered at admit?: Yes
[2019-01-21] MEDS ORDERED: SODIUM CHLORIDE FLUSH 0.9% 10 ML SYRINGE ONE (16:02)
--- NOTE | 2019-01-21 16:24 | XRAY Report ---
Reason: fall, left hip pain Procedure Date: 01/21/2019 Accession Number: [id number] / [id number] Procedure: XR - Hip w/Pelvis 2-3V LT CPT Code: FULL RESULT: EXAM: LEFT HIP RADIOGRAPHY EXAM DATE: 01/21/2019 04:02 PM. CLINICAL HISTORY: Fall. Left hip pain. COMPARISON: None. TECHNIQUE: 2 views. FINDINGS: Bones: Normal. No fractures or bone lesion. Joints: Normal. No dislocation. The hip joint space is preserved. Soft Tissues: Multiple surgical clips in the pelvis. IMPRESSION: No acute bony abnormality identified. RADIA
[2019-01-21] MEDS ORDERED: hydrALAZINE INJ 20 MG/ML VIAL IVP PRN (16:29)
[2019-01-21 16:56] LABS: MUDS CUTOFF CONCENTRATIONS CUTOFF CONC BELOW:
[2019-01-21 16:59] LABS: BILIRUBIN,URINE NEGATIVE (NEGATIVE); GLUCOSE, URINE (UA) NEGATIVE (NEGATIVE); KETONES,URINE (UA) 15 mg/dL (NEGATIVE); LEUKOCYTE ESTERASE, URINE NEGATIVE (NEGATIVE); NITRITE,URINE NEGATIVE (NEGATIVE); OCCULT BLOOD,URINE NEGATIVE (NEGATIVE); PROTEIN,URINE NEGATIVE (NEGATIVE); UROBILINOGEN,URINE 0.2 (NORMAL) E.U./dL (NORMAL)
[2019-01-21 17:11] LABS: CLARITY,URINE CLEAR (CLEAR)
[2019-01-21 17:14] LABS: AMPHETAMINE SCREEN,URINE NEGATIVE (NEGATIVE); BENZODIAZEPINES SCREEN, URINE NEGATIVE (NEGATIVE); COCAINE SCREEN URINE NEGATIVE (NEGATIVE); METHADONE SCREEN, URINE NEGATIVE (NEGATIVE); METHAMPHETAMINES SCREEN, URINE NEGATIVE (NEGATIVE); OPIATE SCREEN, URINE NEGATIVE (NEGATIVE); OXYCODONE SCREEN, URINE NEGATIVE (NEGATIVE); PROPOXYPHENE SCREEN, URINE NEGATIVE (NEGATIVE); TRICYCLIC ANTIDEPRESSANT,URINE NEGATIVE (NEGATIVE)
[2019-01-21] MEDS: SODIUM CHLORIDE 0.9% 1,000 ML IV SCH (17:34)
[2019-01-21] MEDS: SODIUM CHLORIDE FLUSH 0.9% 10 ML SYRINGE IVP SCH (17:35)
[2019-01-21] MEDS: METOPROLOL SUCCINATE 25 MG TABLET PO SCH (20:15)
[2019-01-21] MEDS: ATORVASTATIN 40 MG TABLET PO SCH (20:19)
[2019-01-21] MEDS: FAMOTIDINE 20 MG TABLET PO SCH (20:19)
--- NOTE | 2019-01-21 20:38 | MRI Report ---
Reason: stroke Procedure Date: 01/21/2019 Accession Number: [id number] / [id number] Procedure: MRI - Brain W/O CPT Code: FULL RESULT: EXAM: MRI BRAIN WITHOUT CONTRAST EXAM DATE: 01/21/2019 08:04 PM. CLINICAL HISTORY: 63-year-old presenting with unsteady gait and falls. Evaluate for intracranial pathology. COMPARISON: CT head 01/21/2019, 12/19/2018. TECHNIQUE: Multiplanar, multisequence T1-weighted and fluid-sensitive MR sequences of the brain were performed. Sequences optimized for routine evaluation. Other: None. IV Contrast: None. FINDINGS: Brain Volume: Normal for age. Parenchyma/Dura: No acute parenchymal hemorrhage, mass or midline shift. There is a large area of restricted diffusion in a left SALESPERSON PARTS territory distribution involving the mid and posterior left temporal lobe, posterior left hippocampal tail, and left occipital lobe. Overall size measures at least 31 x 77 mm (series 705, image 64). There is no evidence of hemorrhagic transformation. There is associated T2/FLAIR signal hyperintensity. There is a small infarct of the left thalamus measuring 8 x 9 mm (series 705, image 80). There is associated T2/FLAIR signal hyperintensity. There is no definite evidence of hemorrhagic transformation. There is moderate to large volume encephalomalacia and gliosis of the left frontal lobe, posterior left frontal lobe, and left occipital lobe. There is old chronic lacunar infarcts seen involving bilateral basal ganglia and right thalamus. There are moderate bilateral areas of T2/FLAIR signal hyperintensity seen. There is susceptibility artifact seen within the right basal ganglia that may represent hemosiderin deposition. Ventricles/Cisterns: There is ex vacuo dilatation of the left lateral ventricle with overall ventricular size and configuration appropriate for the extent of volume loss. No abnormal extra-axial fluid collection or hemorrhage. Orbits: Changes of bilateral lens replacement. Sella Turc[place]: The pituitary gland, cavernous sinuses, suprasellar cistern and optic chiasm are unremarkable. IAC: Symmetric and unremarkable. Vasculature: There is loss of the normal flow void involving the left SALESPERSON PARTS. Sinuses: Minimal mucosal thickening of the ethmoid air cells. Mastoid air cells and middle ear cavities appear clear. Bones: No focal pathologic appearing marrow signal changes. Other: None. IMPRESSION: 1. There is a large left SALESPERSON PARTS territory acute infarct with no evidence of hemorrhagic transformation. 2. There is a small acute infarct of the left thalamus with no evidence of hemorrhagic transformation. 3. There is loss of the normal flow void associated with the left SALESPERSON PARTS concerning for thrombus. 4. Old chronic lacunar infarcts involving the right thalamus and bilateral basal ganglia. 5. Moderate volume left MCA territory encephalomalacia and gliosis that may represent sequela of prior infarct. 6. Moderate white matter changes seen that, while nonspecific, may represent sequela of chronic small vessel ischemic disease. RADIA The call report notification system was initiated by Dr. Nikhil Mendoza at 08:36 PM on 01/21/2019. The above call report findings were discussed with Dr Frazier by Dr. Nikhil Mendoza at 08:44 PM on 01/21/2019.
[2019-01-21] MEDS ORDERED: METOPROLOL SUCCINATE 25 MG TABLET PO SCH (21:00)
--- NOTE | 2019-01-21 23:34 | Ultrasound Report ---
Reason: stroke Procedure Date: 01/21/2019 Accession Number: [id number] / [id number] Procedure: US - Carotid Doppler Complete CPT Code: FULL RESULT: EXAM: BILATERAL CAROTID AND VERTEBRAL ARTERY DUPLEX DOPPLER ULTRASOUND: EXAM DATE: 01/21/2019 11:00 PM CLINICAL HISTORY: Stroke. COMPARISON: None. TECHNIQUE: Grayscale imaging, color Doppler, and duplex spectral Doppler were used to evaluate the carotid and vertebral arteries bilaterally. Static images were obtained. FINDINGS: There is mild plaque in the carotid bifurcations and proximal internal carotid arteries bilaterally. Normal antegrade flow is present in bilateral vertebral arteries. VELOCITIES (cm/sec): Right CCA mid: PSV 48 cm/sec CCA dist: PSV 60 cm/sec ICA prox: PSV 60 cm/sec, EDV 21 cm/sec ICA mid: PSV 61 cm/sec, EDV 28 cm/sec ICA dist: PSV 80 cm/sec, EDV 34 cm/sec ECA: PSV 136 cm/sec Vert: PSV 26 cm/sec ICA/CCA: 1.3 Left CCA mid: PSV 62 cm/sec CCA dist: PSV 51 cm/sec ICA prox: PSV 38 cm/sec, EDV 8 cm/sec ICA mid: PSV 111 cm/sec, EDV 20 cm/sec ICA dist: PSV 89 cm/sec, EDV 20 cm/sec ECA: PSV 139 cm/sec Vert: PSV 26 cm/sec ICA/CCA: 1.8 ICA diameter stenosis: Right: <50% by velocity and <70% by NASCET criteria. Left: <50% by velocity and <70% by NASCET criteria. IMPRESSION: 1. Mild bilateral carotid artery plaquing. 2. In the right carotid artery there are no elevated carotid artery velocities to suggest hemodynamically significant stenosis. 3. In the left carotid artery there are no elevated carotid artery velocities to suggest hemodynamically significant stenosis. 4. Normal antegrade flow is present in bilateral vertebral arteries. General Recommendations: Stenosis =50% ICA - Follow-up ultrasound 6-12 months Stenosis <50% ICA - High Risk Patient with plaque - Follow-up ultrasound 1-2 years Normal Study but High Risk Patient - Follow-up ultrasound 3-5 years Management recommendations and diagnostic criteria are based on current IAC endorsed standards in Carotid Artery Stenosis: Grayscale and Doppler Ultrasound Diagnosis. Validated velocity measurements with angiographic measurements and velocity criteria are extrapolated from diameter data as defined by the Society of Radiologists in Ultrasound Consensus Conference Radiology 2003; 229;340-346. RADIA
[2019-01-22] MEDS: SODIUM CHLORIDE FLUSH 0.9% 10 ML SYRINGE IVP SCH ×3 (02:04→19:23)
[2019-01-22] MEDS: SODIUM CHLORIDE 0.9% 1,000 ML IV SCH (04:28)
[2019-01-22 06:33] LABS: BASOPHILS # (AUTO) 0.1 10^3/uL (0.0-0.1); BASOPHILS % (AUTO) 1.6 %; EOSINOPHILS # (AUTO) 0.1 10^3/uL (0.0-0.7); EOSINOPHILS % (AUTO) 2.2 %; HGB - HEMOGLOBIN 10.2 g/dL (14.0-18.0); LYMPHOCYTES # (AUTO) 1.4 10^3/uL (1.5-3.5); LYMPHOCYTES % (AUTO) 22.1 %; MEAN CORPUSCULAR HEMOGLOBIN 22.8 pg (27.0-31.0); MEAN CORPUSCULAR HGB CONC 31.5 g/dL (32.0-36.0); MEAN CORPUSCULAR VOLUME 72.5 fL (80.0-94.0); MEAN PLATELET VOLUME 5.9 fL (7.4-11.4); MONOCYTES # (AUTO) 0.6 10^3/uL (0.0-1.0); MONOCYTES % (AUTO) 9.3 %; NEUTROPHILS # (AUTO) 4.1 10^3/uL (1.5-6.6); NEUTROPHILS % (AUTO) 64.8 %; PLT - PLATELET COUNT 375 10^3/uL (130-450); RED BLOOD COUNT 4.48 10^6/uL (4.70-6.10); RED CELL DISTRIBUTION WIDTH 24.9 % (12.0-15.0); WHITE BLOOD COUNT 6.3 x10^3/uL (4.8-10.8)
[2019-01-22 06:43] LABS: ALBUMIN 3.5 g/dL (3.2-5.5); ALBUMIN/GLOBULIN RATIO 1.3 (1.0-2.2); BILIRUBIN,TOTAL 0.8 mg/dL (0.2-1.0); CALCIUM 8.4 mg/dL (8.5-10.3); CREATININE 0.9 mg/dL (0.6-1.2); MAGNESIUM 1.9 mg/dL (1.7-2.8); TOTAL PROTEIN 6.3 g/dL (6.7-8.2)
[2019-01-22 07:01] LABS: CHOL/HDL RATIO 3.1 (<5.0); CHOLESTEROL 160 mg/dL; HDL CHOLESTEROL 51 mg/dL; LDL CHOLESTEROL,CALCULATED 99 mg/dL; LDL/HDL RATIO 1.9 (<3.6); VLDL CHOLESTEROL 10 mg/dL
[2019-01-22 07:09] LABS: PLATELET ESTIMATE, MANUAL NORMAL (130-450,000) (NORMAL)
--- NOTE | 2019-01-22 07:36 | XRAY Report ---
Reason: sob Procedure Date: 01/22/2019 Accession Number: [id number] / [id number] Procedure: XR - Chest 1 View X-Ray CPT Code: 81727 FULL RESULT: EXAM: CHEST RADIOGRAPHY EXAM DATE: 01/22/2019 06:58 AM. CLINICAL HISTORY: Sob. COMPARISON: CHEST 2 VIEW 12/19/2018 2:32 AM. TECHNIQUE: Upright AP view. FINDINGS: Lungs/Pleura: No focal opacities evident. No peribronchial cuffing or interstitial abnormality. No pleural effusion. No pneumothorax. Mediastinum: Within exam limitations, the cardiomediastinal contour is normal. Mild aortic arch calcification. Other: None. IMPRESSION: Normal single view chest. RADIA
[2019-01-22] MEDS: ASPIRIN 325 MG TABLET PO SCH (08:18)
[2019-01-22] MEDS: PRENATAL VITAMIN TABLET PO SCH (08:18)
[2019-01-22] MEDS: ACETAMINOPHEN 325 MG TABLET PO PRN (08:18)
[2019-01-22] MEDS: LORazepam 0.5 MG TABLET PO PRN ×2 (08:18→20:05)
[2019-01-22] MEDS: FAMOTIDINE 20 MG TABLET PO SCH ×2 (08:18→20:05)
[2019-01-22] MEDS: THIAMINE 100 MG TABLET PO SCH (08:18)
[2019-01-22] MEDS: FERROUS GLUCONATE 324 MG TABLET PO SCH (08:18)
[2019-01-22] MEDS: POLYETHYLENE GLYCOL 3350 17 GM PACKET PO SCH (08:18)
[2019-01-22] MEDS: ENOXAPARIN 40 MG/0.4 ML SYRINGE SUBQ SCH (08:19)
[2019-01-22] MEDS: METOPROLOL SUCCINATE 25 MG TABLET PO SCH ×2 (08:19→20:05)
[2019-01-22 09:09] LABS: ABSOLUTE RETICS # AUTO 0.045 10^6/uL (0.020-0.110); MEAN RETIC VALUE 114.7; RED BLOOD COUNT 4.46 10^6/uL (4.70-6.10)
[2019-01-22 09:59] LABS: % IRON SATURATION 22 % (20-50); IRON 78 ug/dL (45-182); TOTAL IRON BINDING CAPACITY 350 ug/dL (250-450); TRANSFERRIN 250 mg/dL (180-329)
--- NOTE | 2019-01-22 13:00 | PROVIDER PROGRESS NOTE ---
Subjective - Prog Note Date Prog Note Date: 01/22/19 Prog Note Time: 12:58 - Subjective Pt reports feeling: No change Objective - Vital Signs/Intake & Output Vital Signs: Vital Signs x48h Temp Pulse Pulse Resp BP BP Pulse Ox 01/22/19 11:10 63 136/73 H 01/22/19 07:49 36.6 C 69 16 141/70 H 98 Intake & Output: Intake & Output 01/19/19 01/20/19 01/21/19 01/22/19 23:59 23:59 23:59 23:59 Intake Total 840 1823.333 Output Total 200 650 Balance 640 1173.333 - Lab Results Fish Bones: 01/22/19 06:15 01/22/19 06:15 Other Labs: Lab Results x24hrs 01/22/19 01/22/19 01/22/19 Range/Units 08:29 08:29 08:29 WBC (4.8-10.8) x10^3/uL RBC (4.70-6.10) 10^6/uL Hgb (14.0-18.0) g/dL Hct (42.0-52.0) % MCV (80.0-94.0) fL MCH (27.0-31.0) pg MCHC (32.0-36.0) g/dL RDW (12.0-15.0) % Plt Count (130-450) 10^3/uL MPV (7.4-11.4) fL Reticulocyte % (Auto) (0.5-2.3) % Neut # (Auto) (1.5-6.6) 10^3/uL Lymph # (Auto) (1.5-3.5) 10^3/uL Gentry # (Auto) (0.0-1.0) 10^3/uL Eos # (Auto) (0.0-0.7) 10^3/uL Baso # (Auto) (0.0-0.1) 10^3/uL Absolute Nucleated RBC x10^3/uL Nucleated RBC % /100WBC Manual Slide Review WBC Morphology (NORMAL) Platelet Estimate (NORMAL) RBC Morph Micro Appear (NORMAL) Absolute Retic (0.020-0.110) 10^6/uL PT (9.9-12.6) secs INR (0.8-1.2) Sodium (135-145) mmol/L Potassium (3.5-5.0) mmol/L Chloride (101-111) mmol/L Carbon Dioxide (21-32) mmol/L Anion Gap (6-13) BUN (6-20) mg/dL Creatinine (0.6-1.2) mg/dL Estimated GFR (MDRD) (>89) Glucose (70-100) mg/dL Calcium (8.5-10.3) mg/dL Magnesium (1.7-2.8) mg/dL Iron 78 (45-182) ug/dL TIBC 350 (250-450) ug/dL % Saturation 22 (20-50) % Transferrin 250 (180-329) mg/dL Ferritin 16.0 L (23.9-336.2) ng/mL Total Bilirubin (0.2-1.0) mg/dL AST (10-42) IU/L ALT (10-60) IU/L Alkaline Phosphatase (42-121) IU/L Lactate Dehydrogenase 142 (91-225) IU/L Troponin I (<0.49) ng/mL Total Protein (6.7-8.2) g/dL Albumin (3.2-5.5) g/dL Globulin (2.1-4.2) g/dL Albumin/Globulin Ratio (1.0-2.2) Triglycerides ( - 149) mg/dL Cholesterol ( - 199) mg/dL LDL Cholesterol, Calc ( - 129) mg/dL VLDL Cholesterol mg/dL HDL Cholesterol (60 - ) mg/dL LDL/HDL Ratio (<3.6) Cholesterol/HDL Ratio (<5.0) Vitamin B12 416 (180-914) pg/mL Urine Color Urine Clarity (CLEAR) Urine pH (5.0-7.5) PH Ur Specific [place] (1.002-1.030) Urine Protein (NEGATIVE) mg/dL Urine Glucose (UA) (NEGATIVE) mg/dL Urine Ketones (NEGATIVE) mg/dL Urine Occult Blood (NEGATIVE) Urine Nitrite (NEGATIVE) Urine Bilirubin (NEGATIVE) Urine Urobilinogen (NORMAL) E.U./dL Ur Leukocyte Esterase (NEGATIVE) Ur Microscopic Review Urine Culture Comments Urine Opiates Screen (NEGATIVE) Ur Oxycodone Screen (NEGATIVE) Urine Methadone Screen (NEGATIVE) Ur Propoxyphene Screen (NEGATIVE) Ur Barbiturates Screen (NEGATIVE) Ur Tricyclics Screen (NEGATIVE) Ur Phencyclidine Scrn (NEGATIVE) Ur Amphetamine Screen (NEGATIVE) U Methamphetamines Scrn (NEGATIVE) U Benzodiazepines Scrn (NEGATIVE) Urine Cocaine Screen (NEGATIVE) U Cannabinoids Screen (NEGATIVE) Ethyl Alcohol mg/dL 01/22/19 01/22/19 01/22/19 Range/Units 08:29 06:15 06:15 WBC (4.8-10.8) x10^3/uL RBC 4.46 L (4.70-6.10) 10^6/uL Hgb (14.0-18.0) g/dL Hct (42.0-52.0) % MCV (80.0-94.0) fL MCH (27.0-31.0) pg MCHC (32.0-36.0) g/dL RDW (12.0-15.0) % Plt Count (130-450) 10^3/uL MPV (7.4-11.4) fL Reticulocyte % (Auto) 1.01 (0.5-2.3) % Neut # (Auto) (1.5-6.6) 10^3/uL Lymph # (Auto) (1.5-3.5) 10^3/uL Gentry # (Auto) (0.0-1.0) 10^3/uL Eos # (Auto) (0.0-0.7) 10^3/uL Baso # (Auto) (0.0-0.1) 10^3/uL Absolute Nucleated RBC x10^3/uL Nucleated RBC % /100WBC Manual Slide Review WBC Morphology (NORMAL) Platelet Estimate (NORMAL) RBC Morph Micro Appear (NORMAL) Absolute Retic 0.045 (0.020-0.110) 10^6/uL PT (9.9-12.6) secs INR (0.8-1.2) Sodium 133 L (135-145) mmol/L Potassium 3.9 (3.5-5.0) mmol/L Chloride 101 (101-111) mmol/L Carbon Dioxide 22 (21-32) mmol/L Anion Gap 10.0 (6-13) BUN 15 (6-20) mg/dL Creatinine 0.9 (0.6-1.2) mg/dL Estimated GFR (MDRD) 85 L (>89) Glucose 97 (70-100) mg/dL Calcium 8.4 L (8.5-10.3) mg/dL Magnesium 1.9 (1.7-2.8) mg/dL Iron (45-182) ug/dL TIBC (250-450) ug/dL % Saturation (20-50) % Transferrin (180-329) mg/dL Ferritin (23.9-336.2) ng/mL Total Bilirubin 0.8 (0.2-1.0) mg/dL AST 34 (10-42) IU/L ALT 18 (10-60) IU/L Alkaline Phosphatase 76 (42-121) IU/L Lactate Dehydrogenase (91-225) IU/L Troponin I (<0.49) ng/mL Total Protein 6.3 L (6.7-8.2) g/dL Albumin 3.5 (3.2-5.5) g/dL Globulin 2.8 (2.1-4.2) g/dL Albumin/Globulin Ratio 1.3 (1.0-2.2) Triglycerides 51 ( - 149) mg/dL Cholesterol 160 ( - 199) mg/dL LDL Cholesterol, Calc 99 ( - 129) mg/dL VLDL Cholesterol 10 mg/dL HDL Cholesterol 51 L (60 - ) mg/dL LDL/HDL Ratio 1.9 (<3.6) Cholesterol/HDL Ratio 3.1 (<5.0) Vitamin B12 (180-914) pg/mL Urine Color Urine Clarity (CLEAR) Urine pH (5.0-7.5) PH Ur Specific [place] (1.002-1.030) Urine Protein (NEGATIVE) mg/dL Urine Glucose (UA) (NEGATIVE) mg/dL Urine Ketones (NEGATIVE) mg/dL Urine Occult Blood (NEGATIVE) Urine Nitrite (NEGATIVE) Urine Bilirubin (NEGATIVE) Urine Urobilinogen (NORMAL) E.U./dL Ur Leukocyte Esterase (NEGATIVE) Ur Microscopic Review Urine Culture Comments Urine Opiates Screen (NEGATIVE) Ur Oxycodone Screen (NEGATIVE) Urine Methadone Screen (NEGATIVE) Ur Propoxyphene Screen (NEGATIVE) Ur Barbiturates Screen (NEGATIVE) Ur Tricyclics Screen (NEGATIVE) Ur Phencyclidine Scrn (NEGATIVE) Ur Amphetamine Screen (NEGATIVE) U Methamphetamines Scrn (NEGATIVE) U Benzodiazepines Scrn (NEGATIVE) Urine Cocaine Screen (NEGATIVE) U Cannabinoids Screen (NEGATIVE) Ethyl Alcohol mg/dL 01/22/19 01/21/19 01/21/19 Range/Units 06:15 Unknown 14:55 WBC 6.3 (4.8-10.8) x10^3/uL RBC 4.48 L (4.70-6.10) 10^6/uL Hgb 10.2 L (14.0-18.0) g/dL Hct 32.4 L (42.0-52.0) % MCV 72.5 L (80.0-94.0) fL MCH 22.8 L (27.0-31.0) pg MCHC 31.5 L (32.0-36.0) g/dL RDW 24.9 H (12.0-15.0) % Plt Count 375 (130-450) 10^3/uL MPV 5.9 L (7.4-11.4) fL Reticulocyte % (Auto) (0.5-2.3) % Neut # (Auto) 4.1 (1.5-6.6) 10^3/uL Lymph # (Auto) 1.4 L (1.5-3.5) 10^3/uL [place]entry # (Auto) 0.6 (0.0-1.0) 10^3/uL Eos # (Auto) 0.1 (0.0-0.7) 10^3/uL Baso # (Auto) 0.1 (0.0-0.1) 10^3/uL Absolute Nucleated RBC 0.00 x10^3/uL Nucleated RBC % 0.0 /100WBC Manual Slide Review Indicated WBC Morphology (NORMAL) Platelet Estimate NORMAL (130-450,000) (NORMAL) RBC Morph Micro Appear 1+ OVALOCYTES (NORMAL) Absolute Retic (0.020-0.110) 10^6/uL PT (9.9-12.6) secs INR (0.8-1.2) Sodium (135-145) mmol/L Potassium (3.5-5.0) mmol/L Chloride (101-111) mmol/L Carbon Dioxide (21-32) mmol/L Anion Gap (6-13) BUN (6-20) mg/dL Creatinine (0.6-1.2) mg/dL Estimated GFR (MDRD) (>89) Glucose (70-100) mg/dL Calcium (8.5-10.3) mg/dL Magnesium (1.7-2.8) mg/dL Iron (45-182) ug/dL TIBC (250-450) ug/dL % Saturation (20-50) % Transferrin (180-329) mg/dL Ferritin (23.9-336.2) ng/mL Total Bilirubin (0.2-1.0) mg/dL AST (10-42) IU/L ALT (10-60) IU/L Alkaline Phosphatase (42-121) IU/L Lactate Dehydrogenase (91-225) IU/L Troponin I < 0.04 (<0.49) ng/mL Total Protein (6.7-8.2) g/dL Albumin (3.2-5.5) g/dL Globulin (2.1-4.2) g/dL Albumin/Globulin Ratio (1.0-2.2) Triglycerides ( - 149) mg/dL Cholesterol ( - 199) mg/dL LDL Cholesterol, Calc ( - 129) mg/dL VLDL Cholesterol mg/dL HDL Cholesterol (60 - ) mg/dL LDL/HDL Ratio (<3.6) Cholesterol/HDL Ratio (<5.0) Vitamin B12 (180-914) pg/mL Urine Color YELLOW Urine Clarity CLEAR (CLEAR) Urine pH 7.0 (5.0-7.5) PH Ur Specific [place] 1.015 (1.002-1.030) Urine Protein NEGATIVE (NEGATIVE) mg/dL Urine Glucose (UA) NEGATIVE (NEGATIVE) mg/dL Urine Ketones 15 H (NEGATIVE) mg/dL Urine Occult Blood NEGATIVE (NEGATIVE) Urine Nitrite NEGATIVE (NEGATIVE) Urine Bilirubin NEGATIVE (NEGATIVE) Urine Urobilinogen 0.2 (NORMAL) (NORMAL) E.U./dL Ur Leukocyte Esterase NEGATIVE (NEGATIVE) Ur Microscopic Review NOT INDICATED Urine Culture Comments NOT INDICATED Urine Opiates Screen NEGATIVE (NEGATIVE) Ur Oxycodone Screen NEGATIVE (NEGATIVE) Urine Methadone Screen NEGATIVE (NEGATIVE) Ur Propoxyphene Screen NEGATIVE (NEGATIVE) Ur Barbiturates Screen NEGATIVE (NEGATIVE) Ur Tricyclics Screen NEGATIVE (NEGATIVE) Ur Phencyclidine Scrn NEGATIVE (NEGATIVE) Ur Amphetamine Screen NEGATIVE (NEGATIVE) U Methamphetamines Scrn NEGATIVE (NEGATIVE) U Benzodiazepines Scrn NEGATIVE (NEGATIVE) Urine Cocaine Screen NEGATIVE (NEGATIVE) U Cannabinoids Screen POSITIVE H (NEGATIVE) Ethyl Alcohol mg/dL 01/21/19 01/21/19 01/21/19 Range/Units 14:55 13:10 13:10 WBC 7.7 (4.8-10.8) x10^3/uL RBC 5.02 (4.70-6.10) 10^6/uL Hgb 11.3 L (14.0-18.0) g/dL Hct 36.5 L (42.0-52.0) % MCV 72.8 L (80.0-94.0) fL MCH 22.5 L (27.0-31.0) pg MCHC 30.9 L (32.0-36.0) g/dL RDW 25.0 H (12.0-15.0) % Plt Count 474 H (130-450) 10^3/uL MPV 6.1 L (7.4-11.4) fL Reticulocyte % (Auto) (0.5-2.3) % Neut # (Auto) 5.7 (1.5-6.6) 10^3/uL Lymph # (Auto) 1.1 L (1.5-3.5) 10^3/uL [place] # (Auto) 0.7 (0.0-1.0) 10^3/uL Eos # (Auto) 0.0 (0.0-0.7) 10^3/uL Baso # (Auto) 0.1 (0.0-0.1) 10^3/uL Absolute Nucleated RBC 0.00 x10^3/uL Nucleated RBC % 0.0 /100WBC Manual Slide Review Indicated WBC Morphology NORMAL APPEARANCE (NORMAL) Platelet Estimate (NORMAL) RBC Morph Micro Appear 1+ MICROCYTOSIS (NORMAL) Absolute Retic (0.020-0.110) 10^6/uL PT 13.1 H (9.9-12.6) secs INR 1.2 (0.8-1.2) Sodium 135 (135-145) mmol/L Potassium 4.4 (3.5-5.0) mmol/L Chloride 99 L (101-111) mmol/L Carbon Dioxide 25 (21-32) mmol/L Anion Gap 11.0 (6-13) BUN 24 H (6-20) mg/dL Creatinine 1.0 (0.6-1.2) mg/dL Estimated GFR (MDRD) 75 L (>89) Glucose 101 H (70-100) mg/dL Calcium 9.2 (8.5-10.3) mg/dL Magnesium (1.7-2.8) mg/dL Iron (45-182) ug/dL TIBC (250-450) ug/dL % Saturation (20-50) % Transferrin (180-329) mg/dL Ferritin (23.9-336.2) ng/mL Total Bilirubin (0.2-1.0) mg/dL AST (10-42) IU/L ALT (10-60) IU/L Alkaline Phosphatase (42-121) IU/L Lactate Dehydrogenase (91-225) IU/L Troponin I (<0.49) ng/mL Total Protein (6.7-8.2) g/dL Albumin (3.2-5.5) g/dL Globulin (2.1-4.2) g/dL Albumin/Globulin Ratio (1.0-2.2) Triglycerides ( - 149) mg/dL Cholesterol ( - 199) mg/dL LDL Cholesterol, Calc ( - 129) mg/dL VLDL Cholesterol mg/dL HDL Cholesterol (60 - ) mg/dL LDL/HDL Ratio (<3.6) Cholesterol/HDL Ratio (<5.0) Vitamin B12 (180-914) pg/mL Urine Color Urine Clarity (CLEAR) Urine pH (5.0-7.5) PH Ur Specific [place] (1.002-1.030) Urine Protein (NEGATIVE) mg/dL Urine Glucose (UA) (NEGATIVE) mg/dL Urine Ketones (NEGATIVE) mg/dL Urine Occult Blood (NEGATIVE) Urine Nitrite (NEGATIVE) Urine Bilirubin (NEGATIVE) Urine Urobilinogen (NORMAL) E.U./dL Ur Leukocyte Esterase (NEGATIVE) Ur Microscopic Review Urine Culture Comments Urine Opiates Screen (NEGATIVE) Ur Oxycodone Screen (NEGATIVE) Urine Methadone Screen (NEGATIVE) Ur Propoxyphene Screen (NEGATIVE) Ur Barbiturates Screen (NEGATIVE) Ur Tricyclics Screen (NEGATIVE) Ur Phencyclidine Scrn (NEGATIVE) Ur Amphetamine Screen (NEGATIVE) U Methamphetamines Scrn (NEGATIVE) U Benzodiazepines Scrn (NEGATIVE) Urine Cocaine Screen (NEGATIVE) U Cannabinoids Screen (NEGATIVE) Ethyl Alcohol < 5.0 mg/dL - Diagnostic Imaging Diagnostic Imaging Comments: XR show minimally shortened, minimally displaced right 3rd MT fx - extraarticular - Other Results/Comments Other Results/Comments: EXAM: Right hand in splint N/V ok Sepsis Event Note (H) - Evaluation Current Stage of Sepsis: Ruled out Assessment/Plan - Problem List (1) Closed right hand fracture Impression: [place]is[place] PLAN: Splint hand. Follow up in clinic in 10-14 days for XR. Qualifiers: Encounter type: initial encounter Qualified Code(s): S62.91XA - Unspecified fracture of right wrist and hand, initial encounter for closed fracture
--- NOTE | 2019-01-22 13:56 | CONSULTATION NOTE ---
DATE OF SERVICE: 01/22/2019 Physician: Garth Le MD REFERRING PHYSICIAN: Dr. Freya Mahan from the Emergency Room Department. CHIEF COMPLAINT: Right hand fracture. HISTORY OF PRESENT ILLNESS: The patient is a 63-year-old male status post stroke in the past, who ap parently has another acute posterior stroke, which prompted his recent admission to the hospital. Th ere was a history of an injury to the right hand. During the workup in the emergency department, he was noted to have a comminuted, minimally shortened, minimally displaced, closed right third metacarp al fracture. He was placed into a splint in the emergency room. He comes in now, and we have been a sked to followup with regard to his right hand fracture while he is an inpatient. By history, it johnnie ears as though patient only uses right upper extremity somewhat minimally since his first stroke. PHYSICAL EXAMINATION: The patient's right hand is in a nicely contoured right hand/forearm volar spl int. It appears to be well padded. No neurovascular compromise noted in the exposed portion of his fingertips. X-RAYS: Show a comminuted, minimally shortened, minimally displaced, minimally angulated third metac arpal fracture. ASSESSMENT: 1. Closed right third metacarpal fracture. 2. Status post stroke. PLAN: The patient will stay in his well-padded volar splint for his hand and forearm over the next w [place] to 2 weeks. He will followup in the orthopedic clinic as an outpatient for re-x-ray of his hand fracture and application of a knee splint as needed. TD: 01/22/2019 13:07
--- NOTE | 2019-01-22 17:02 | PROVIDER PROGRESS NOTE ---
Subjective - Prog Note Date Prog Note Date: 01/22/19 - Subjective Pt reports feeling: No change Subjective: pt still report right side weakness on his upper and lower extremities. pt report he has no problem to eat his diet. No chest pain, shortness of breath are reported. Current Medications - Current Medications Current Medications: Active Medications Acetaminophen (Tylenol) 650 mg PO Q4HR PRN PRN Reason: Pain 1 to 4 Last Admin: 01/22/19 08:18 Dose: 650 mg Aspirin (Iza) 325 mg PO DAILY [facility] Last Admin: 01/22/19 08:18 Dose: 325 mg Atorvastatin Calcium (Lipitor) 80 mg PO QPM [facility] Last Admin: 01/21/19 20:19 Dose: 80 mg Enoxaparin Sodium (Lovenox) 40 mg SUBQ DAILY [facility] Last Admin: 01/22/19 08:19 Dose: 40 mg Famotidine (Pepcid) 20 mg PO 0800,2100 [facility] Ferrous Gluconate (Fergon) 324 mg PO DAILY [facility] Last Admin: 01/22/19 08:18 Dose: 324 mg Hydralazine HCl (Apresoline Inj) 10 mg IVP QID PRN PRN Reason: Hypertensive Emergency Lorazepam (Ativan) 0.5 mg PO Q6H PRN PRN Reason: Anxiety Last Admin: 01/22/19 08:18 Dose: 0.5 mg Metoprolol Succinate (Toprol Xl) 25 mg PO BID [facility] Last Admin: 01/22/19 08:19 Dose: 25 mg Ondansetron HCl (Zofran Inj) 4 mg IVP Q6HR PRN PRN Reason: Nausea / Vomiting Polyethylene Glycol (Miralax) 17 gm PO DAILY [facility] Last Admin: 01/22/19 08:18 Dose: 17 gm Multivit/Folic Acid/Iron (Trinatal Rx 1) 1 tab PO DAILYWM [facility] Last Admin: 01/22/19 08:18 Dose: 1 tab Sodium Chloride (Normal Saline Flush 0.9%) 10 ml IVP PRN PRN PRN Reason: NEEDED PER PROVIDER ORDERS Sodium Chloride (Normal Saline Flush 0.9%) 10 ml IVP 0100,0900,1700 [facility] Last Admin: 01/22/19 08:19 Dose: Not Given Thiamine HCl (Vitamin B-1) 100 mg PO DAILY [facility] Last Admin: 01/22/19 08:18 Dose: 100 mg Lisinopril 40 mg PO DAILY 11/08/18 Acetaminophen [Tylenol] 650 mg PO Q6H PRN 12/19/18 Metoprolol Tartrate 50 mg PO BID 12/19/18 guaiFENesin/DEXTROMETHORPHAN [Robitussin Dm] 10 ml PO Q6HR PRN 12/19/18 Ferrous Sulfate 325 mg PO DAILY 01/21/19 Ranitidine HCl [Acid Control] 150 mg PO DAILY 01/21/19 Thiamine HCl [Vitamin B-1] 100 mg PO DAILY 01/21/19 Objective - Vital Signs/Intake & Output Reviewed Vital Signs: Yes Vital Signs: Vital Signs x48h Temp Pulse Pulse Resp BP BP Pulse Ox 01/22/19 16:00 36.7 C 62 16 148/73 H 98 01/22/19 11:10 63 136/73 H Intake & Output: Intake & Output 01/19/19 01/20/19 01/21/19 01/22/19 23:59 23:59 23:59 23:59 Intake Total 840 2963.333 Output Total 200 1250 Balance 640 1713.333 - Objective General Appearance: positive: No acute distress, Alert. negative: Lethargic Eyes Bilateral: positive: Normal inspection, PERRL, No lid inflammation, Conj unctivae nml ENT: positive: ENT inspection nml, Pharynx nml, No signs of dehydration. negative: Purulent nasal drainage, Pharyngeal erythema, Oral lesions Neck: positive: Nml inspection, Thyroid nml, No JVD, Trachea midline. negative: Thyromegaly, Lymphadenopathy (R), Lymphadenopathy (L), Stiff neck, Swelling/bruising, Tracheal deviation Respiratory: positive: Chest non-tender, No respiratory distress, Breath sounds nml. negative: Wheezes, Rales, Rhonchi Cardiovascular: positive: Regular rate & rhythm, No murmur, No gallop. negative: Irregularly irregular, Extrasystoles, Tachycardia, Bradycardia, JVD present, Systolic murmur, Diastolic murmur Peripheral Pulses: 2+ Radial (R), 2+ Radial (L), 2+ Dorsalis pedis (R), 2+ Dorsalis pedis (L) Abdomen: positive: Non-tender, No organomegaly, Nml bowel sounds, No distention. negative: Tenderness, Guarding, Rebound Back: positive: Nml inspection. negative: CVA tenderness (R), CVA tenderness (L) Skin: positive: Color nml, No rash, Warm, Dry. negative: Cyanosis, Diaphoresis, Pallor Extremities: negative: Calf tenderness, Joint swelling, Ese's sign/cords Neurologic/Psychiatric: positive: Oriented x3, Weakness, Sensory loss, Slurred/abnml speech. negative: Facial droop - Lab Results Fish Bones: 01/22/19 06:15 01/22/19 06:15 Other Labs: Lab Results x24hrs 01/22/19 01/22/19 01/22/19 Range/Units 08:29 08:29 08:29 WBC (4.8-10.8) x10^3/uL RBC (4.70-6.10) 10^6/uL Hgb (14.0-18.0) g/dL Hct (42.0-52.0) % MCV (80.0-94.0) fL MCH (27.0-31.0) pg MCHC (32.0-36.0) g/dL RDW (12.0-15.0) % Plt Count (130-450) 10^3/uL MPV (7.4-11.4) fL Reticulocyte % (Auto) (0.5-2.3) % Neut # (Auto) (1.5-6.6) 10^3/uL Lymph # (Auto) (1.5-3.5) 10^3/uL [place] # (Auto) (0.0-1.0) 10^3/uL Eos # (Auto) (0.0-0.7) 10^3/uL Baso # (Auto) (0.0-0.1) 10^3/uL Absolute Nucleated RBC x10^3/uL Nucleated RBC % /100WBC Manual Slide Review Platelet Estimate (NORMAL) RBC Morph Micro Appear (NORMAL) Absolute Retic (0.020-0.110) 10^6/uL Sodium (135-145) mmol/L Potassium (3.5-5.0) mmol/L Chloride (101-111) mmol/L Carbon Dioxide (21-32) mmol/L Anion Gap (6-13) BUN (6-20) mg/dL Creatinine (0.6-1.2) mg/dL Estimated GFR (MDRD) (>89) Glucose (70-100) mg/dL Calcium (8.5-10.3) mg/dL Magnesium (1.7-2.8) mg/dL Iron 78 (45-182) ug/dL TIBC 350 (250-450) ug/dL % Saturation 22 (20-50) % Transferrin 250 (180-329) mg/dL Ferritin 16.0 L (23.9-336.2) ng/mL Total Bilirubin (0.2-1.0) mg/dL AST (10-42) IU/L ALT (10-60) IU/L Alkaline Phosphatase (42-121) IU/L Lactate Dehydrogenase 142 (91-225) IU/L Total Protein (6.7-8.2) g/dL Albumin (3.2-5.5) g/dL Globulin (2.1-4.2) g/dL Albumin/Globulin Ratio (1.0-2.2) Triglycerides ( - 149) mg/dL Cholesterol ( - 199) mg/dL LDL Cholesterol, Calc ( - 129) mg/dL VLDL Cholesterol mg/dL HDL Cholesterol (60 - ) mg/dL LDL/HDL Ratio (<3.6) Cholesterol/HDL Ratio (<5.0) Vitamin B12 416 (180-914) pg/mL Urine Color Urine Clarity (CLEAR) Urine pH (5.0-7.5) PH Ur Specific [place] (1.002-1.030) Urine Protein (NEGATIVE) mg/dL Urine Glucose (UA) (NEGATIVE) mg/dL Urine Ketones (NEGATIVE) mg/dL Urine Occult Blood (NEGATIVE) Urine Nitrite (NEGATIVE) Urine Bilirubin (NEGATIVE) Urine Urobilinogen (NORMAL) E.U./dL Ur Leukocyte Esterase (NEGATIVE) Ur Microscopic Review Urine Culture Comments Urine Opiates Screen (NEGATIVE) Ur Oxycodone Screen (NEGATIVE) Urine Methadone Screen (NEGATIVE) Ur Propoxyphene Screen (NEGATIVE) Ur Barbiturates Screen (NEGATIVE) Ur Tricyclics Screen (NEGATIVE) Ur Phencyclidine Scrn (NEGATIVE) Ur Amphetamine Screen (NEGATIVE) U Methamphetamines Scrn (NEGATIVE) U Benzodiazepines Scrn (NEGATIVE) Urine Cocaine Screen (NEGATIVE) U Cannabinoids Screen (NEGATIVE) 01/22/19 01/22/19 01/22/19 Range/Units 08:29 06:15 06:15 WBC (4.8-10.8) x10^3/uL RBC 4.46 L (4.70-6.10) 10^6/uL Hgb (14.0-18.0) g/dL Hct (42.0-52.0) % MCV (80.0-94.0) fL MCH (27.0-31.0) pg MCHC (32.0-36.0) g/dL RDW (12.0-15.0) % Plt Count (130-450) 10^3/uL MPV (7.4-11.4) fL Reticulocyte % (Auto) 1.01 (0.5-2.3) % Neut # (Auto) (1.5-6.6) 10^3/uL Lymph # (Auto) (1.5-3.5) 10^3/uL [place] # (Auto) (0.0-1.0) 10^3/uL Eos # (Auto) (0.0-0.7) 10^3/uL Baso # (Auto) (0.0-0.1) 10^3/uL Absolute Nucleated RBC x10^3/uL Nucleated RBC % /100WBC Manual Slide Review Platelet Estimate (NORMAL) RBC Morph Micro Appear (NORMAL) Absolute Retic 0.045 (0.020-0.110) 10^6/uL Sodium 133 L (135-145) mmol/L Potassium 3.9 (3.5-5.0) mmol/L Chloride 101 (101-111) mmol/L Carbon Dioxide 22 (21-32) mmol/L Anion Gap 10.0 (6-13) BUN 15 (6-20) mg/dL Creatinine 0.9 (0.6-1.2) mg/dL Estimated GFR (MDRD) 85 L (>89) Glucose 97 (70-100) mg/dL Calcium 8.4 L (8.5-10.3) mg/dL Magnesium 1.9 (1.7-2.8) mg/dL Iron (45-182) ug/dL TIBC (250-450) ug/dL % Saturation (20-50) % Transferrin (180-329) mg/dL Ferritin (23.9-336.2) ng/mL Total Bilirubin 0.8 (0.2-1.0) mg/dL AST 34 (10-42) IU/L ALT 18 (10-60) IU/L Alkaline Phosphatase 76 (42-121) IU/L Lactate Dehydrogenase (91-225) IU/L Total Protein 6.3 L (6.7-8.2) g/dL Albumin 3.5 (3.2-5.5) g/dL Globulin 2.8 (2.1-4.2) g/dL Albumin/Globulin Ratio 1.3 (1.0-2.2) Triglycerides 51 ( - 149) mg/dL Cholesterol 160 ( - 199) mg/dL LDL Cholesterol, Calc 99 ( - 129) mg/dL VLDL Cholesterol 10 mg/dL HDL Cholesterol 51 L (60 - ) mg/dL LDL/HDL Ratio 1.9 (<3.6) Cholesterol/HDL Ratio 3.1 (<5.0) Vitamin B12 (180-914) pg/mL Urine Color Urine Clarity (CLEAR) Urine pH (5.0-7.5) PH Ur Specific [place] (1.002-1.030) Urine Protein (NEGATIVE) mg/dL Urine Glucose (UA) (NEGATIVE) mg/dL Urine Ketones (NEGATIVE) mg/dL Urine Occult Blood (NEGATIVE) Urine Nitrite (NEGATIVE) Urine Bilirubin (NEGATIVE) Urine Urobilinogen (NORMAL) E.U./dL Ur Leukocyte Esterase (NEGATIVE) Ur Microscopic Review Urine Culture Comments Urine Opiates Screen (NEGATIVE) Ur Oxycodone Screen (NEGATIVE) Urine Methadone Screen (NEGATIVE) Ur Propoxyphene Screen (NEGATIVE) Ur Barbiturates Screen (NEGATIVE) Ur Tricyclics Screen (NEGATIVE) Ur Phencyclidine Scrn (NEGATIVE) Ur Amphetamine Screen (NEGATIVE) U Methamphetamines Scrn (NEGATIVE) U Benzodiazepines Scrn (NEGATIVE) Urine Cocaine Screen (NEGATIVE) U Cannabinoids Screen (NEGATIVE) 01/22/19 01/21/19 Range/Units 06:15 Unknown WBC 6.3 (4.8-10.8) x10^3/uL RBC 4.48 L (4.70-6.10) 10^6/uL Hgb 10.2 L (14.0-18.0) g/dL Hct 32.4 L (42.0-52.0) % MCV 72.5 L (80.0-94.0) fL MCH 22.8 L (27.0-31.0) pg MCHC 31.5 L (32.0-36.0) g/dL RDW 24.9 H (12.0-15.0) % Plt Count 375 (130-450) 10^3/uL MPV 5.9 L (7.4-11.4) fL Reticulocyte % (Auto) (0.5-2.3) % Neut # (Auto) 4.1 (1.5-6.6) 10^3/uL Lymph # (Auto) 1.4 L (1.5-3.5) 10^3/uL [place] # (Auto) 0.6 (0.0-1.0) 10^3/uL Eos # (Auto) 0.1 (0.0-0.7) 10^3/uL Baso # (Auto) 0.1 (0.0-0.1) 10^3/uL Absolute Nucleated RBC 0.00 x10^3/uL Nucleated RBC % 0.0 /100WBC Manual Slide Review Indicated Platelet Estimate NORMAL (130-450,000) (NORMAL) RBC Morph Micro Appear 1+ OVALOCYTES (NORMAL) Absolute Retic (0.020-0.110) 10^6/uL Sodium (135-145) mmol/L Potassium (3.5-5.0) mmol/L Chloride (101-111) mmol/L Carbon Dioxide (21-32) mmol/L Anion Gap (6-13) BUN (6-20) mg/dL Creatinine (0.6-1.2) mg/dL Estimated GFR (MDRD) (>89) Glucose (70-100) mg/dL Calcium (8.5-10.3) mg/dL Magnesium (1.7-2.8) mg/dL Iron (45-182) ug/dL TIBC (250-450) ug/dL % Saturation (20-50) % Transferrin (180-329) mg/dL Ferritin (23.9-336.2) ng/mL Total Bilirubin (0.2-1.0) mg/dL AST (10-42) IU/L ALT (10-60) IU/L Alkaline Phosphatase (42-121) IU/L Lactate Dehydrogenase (91-225) IU/L Total Protein (6.7-8.2) g/dL Albumin (3.2-5.5) g/dL Globulin (2.1-4.2) g/dL Albumin/Globulin Ratio (1.0-2.2) Triglycerides ( - 149) mg/dL Cholesterol ( - 199) mg/dL LDL Cholesterol, Calc ( - 129) mg/dL VLDL Cholesterol mg/dL HDL Cholesterol (60 - ) mg/dL LDL/HDL Ratio (<3.6) Cholesterol/HDL Ratio (<5.0) Vitamin B12 (180-914) pg/mL Urine Color YELLOW Urine Clarity CLEAR (CLEAR) Urine pH 7.0 (5.0-7.5) PH Ur Specific [place] 1.015 (1.002-1.030) Urine Protein NEGATIVE (NEGATIVE) mg/dL Urine Glucose (UA) NEGATIVE (NEGATIVE) mg/dL Urine Ketones 15 H (NEGATIVE) mg/dL Urine Occult Blood NEGATIVE (NEGATIVE) Urine Nitrite NEGATIVE (NEGATIVE) Urine Bilirubin NEGATIVE (NEGATIVE) Urine Urobilinogen 0.2 (NORMAL) (NORMAL) E.U./dL Ur Leukocyte Esterase NEGATIVE (NEGATIVE) Ur Microscopic Review NOT INDICATED Urine Culture Comments NOT INDICATED Urine Opiates Screen NEGATIVE (NEGATIVE) Ur Oxycodone Screen NEGATIVE (NEGATIVE) Urine Methadone Screen NEGATIVE (NEGATIVE) Ur Propoxyphene Screen NEGATIVE (NEGATIVE) Ur Barbiturates Screen NEGATIVE (NEGATIVE) Ur Tricyclics Screen NEGATIVE (NEGATIVE) Ur Phencyclidine Scrn NEGATIVE (NEGATIVE) Ur Amphetamine Screen NEGATIVE (NEGATIVE) U Methamphetamines Scrn NEGATIVE (NEGATIVE) U Benzodiazepines Scrn NEGATIVE (NEGATIVE) Urine Cocaine Screen NEGATIVE (NEGATIVE) U Cannabinoids Screen POSITIVE H (NEGATIVE) ABX Reporting Has patient been on IV antibiotics over the past 48 hours?: No Sepsis Event Note (H) - Evaluation Current Stage of Sepsis: Ruled out Assessment/Plan - Problem List (1) CVA (cerebral vascular accident) Impression: 01/22 MRI reveal pt has large infarction at left LEACH[place], pt present significant right side weakness and slurred speech now. consult with ST for pt's new slurred speech from his stroke continue PT/OT continue Aspirin and Lipitor pt has fall, and ataxia with unsteady balance at [facility] happened 48 hours ago. pt present right extremities weakness. CT of head reveals acute or subacute stroke on left brain occipital lobe order MRI, US of Carotid, ECHO, Stroke workup tele and vital monitor Daily Aspirin and Lipitor 80mg daily lipid panel test, daily lab monitor PT/OT and social consult. pt seems to have good swallow now (2) Fall Conclusion/Plan: 01/22 consult with orthopedics for pt's Right hand third metacarpal shaft fracture, followup continue pain control pt was report to fall. pt report he has pain at right hand and left hip. pt's Right hand has third metacarpal shaft fracture. Xray of right hip is pending consulted with orthopedics by ER, will followup pain control. pt is allergy to codein consult with PT/OT (3) Alcohol abuse Conclusion/Plan: 01/22 add ativan for his anxiety. it appear pt has no withdrawal now continue neuro check long history of alcohol abuse, frequent to be sent to ER for alcohol intoxication. today his alcohol level is unremarkable add , and reconcile B-1 will consider CIWA protocol if pt present alcohol withdrawal consult with social media specialist for alcohol quitting (4) Anemia Conclusion/Plan: 01/22 anemia study reveal slight low iron, add iron pill daily chronic iron deficiency anemia. Today his HGB is 11.1. pt has home iron pill reconcile home meds daily lab monitor (5) Hypertension Conclusion/Plan: stable now. pt has acute stroke, will allow BP rise, and add PRN hydralinize (6) Dehydration Conclusion/Plan: 01/22 creatinine is 0.9 today as his baseline, resolved dehydration pt clinically present dry mouth, pt has slight elevated BUN and creatinine hydration with NS, daily lab monitor Qualifiers: CVA mechanism: unspecified Qualified Code(s): I63.9 - Cerebral infarction, unspecified (2) Fall Qualifiers: Encounter type: initial encounter Qualified Code(s): W19.XXXA - Unspecified fall, initial encounter (4) Anemia Qualifiers: Anemia type: unspecified type Qualified Code(s): D64.9 - Anemia, unspecified
[2019-01-22] MEDS ORDERED: FERROUS SULFATE 325 MG TABLET PO SCH (18:00)
[2019-01-22] MEDS: ATORVASTATIN 40 MG TABLET PO SCH (20:05)
[2019-01-23] MEDS: SODIUM CHLORIDE FLUSH 0.9% 10 ML SYRINGE IVP SCH ×4 (01:26→23:28)
[2019-01-23 05:57] LABS: BASOPHILS # (AUTO) 0.1 10^3/uL (0.0-0.1); BASOPHILS % (AUTO) 1.5 %; EOSINOPHILS # (AUTO) 0.2 10^3/uL (0.0-0.7); EOSINOPHILS % (AUTO) 3.1 %; HGB - HEMOGLOBIN 10.4 g/dL (14.0-18.0); LYMPHOCYTES # (AUTO) 1.3 10^3/uL (1.5-3.5); LYMPHOCYTES % (AUTO) 22.6 %; MEAN CORPUSCULAR HEMOGLOBIN 22.7 pg (27.0-31.0); MEAN CORPUSCULAR HGB CONC 31.1 g/dL (32.0-36.0); MEAN CORPUSCULAR VOLUME 72.9 fL (80.0-94.0); MEAN PLATELET VOLUME 6.3 fL (7.4-11.4); MONOCYTES # (AUTO) 0.6 10^3/uL (0.0-1.0); MONOCYTES % (AUTO) 10.6 %; NEUTROPHILS # (AUTO) 3.5 10^3/uL (1.5-6.6); NEUTROPHILS % (AUTO) 62.2 %; PLT - PLATELET COUNT 371 10^3/uL (130-450); RED BLOOD COUNT 4.57 10^6/uL (4.70-6.10); RED CELL DISTRIBUTION WIDTH 24.8 % (12.0-15.0); WHITE BLOOD COUNT 5.7 x10^3/uL (4.8-10.8)
[2019-01-23 06:03] LABS: ALBUMIN 3.5 g/dL (3.2-5.5); ALBUMIN/GLOBULIN RATIO 1.2 (1.0-2.2); BILIRUBIN,TOTAL 0.6 mg/dL (0.2-1.0); CALCIUM 8.6 mg/dL (8.5-10.3); CREATININE 0.8 mg/dL (0.6-1.2); TOTAL PROTEIN 6.5 g/dL (6.7-8.2)
[2019-01-23 06:22] LABS: PLATELET ESTIMATE, MANUAL NORMAL (130-450,000) (NORMAL)
[2019-01-23] MEDS: ASPIRIN 325 MG TABLET PO SCH (08:55)
[2019-01-23] MEDS: SODIUM CHLORIDE 0.9% 1,000 ML IV SCH ×2 (08:55→22:08)
[2019-01-23] MEDS: ACETAMINOPHEN 325 MG TABLET PO PRN ×2 (08:55→20:46)
[2019-01-23] MEDS: PRENATAL VITAMIN TABLET PO SCH (08:55)
[2019-01-23] MEDS: FAMOTIDINE 20 MG TABLET PO SCH ×2 (08:56→20:46)
[2019-01-23] MEDS: FERROUS GLUCONATE 324 MG TABLET PO SCH (08:56)
[2019-01-23] MEDS: ENOXAPARIN 40 MG/0.4 ML SYRINGE SUBQ SCH (08:56)
[2019-01-23] MEDS: METOPROLOL SUCCINATE 25 MG TABLET PO SCH ×2 (08:56→20:49)
[2019-01-23] MEDS: POLYETHYLENE GLYCOL 3350 17 GM PACKET PO SCH (08:56)
[2019-01-23] MEDS: THIAMINE 100 MG TABLET PO SCH (08:56)
--- NOTE | 2019-01-23 15:29 | PROVIDER PROGRESS NOTE ---
Subjective - Prog Note Date Prog Note Date: 01/23/19 - Subjective Pt reports feeling: Improved Subjective: pt's speech is better than yesterday, right hand weakness is improved comparing with yesterday. pt denies chest pain and headache. Current Medications - Current Medications Current Medications: Active Medications Acetaminophen (Tylenol) 650 mg PO Q4HR PRN PRN Reason: Pain 1 to 4 Last Admin: 01/23/19 08:55 Dose: 650 mg Aspirin (Iza) 325 mg PO DAILY [facility] Last Admin: 01/23/19 08:55 Dose: 325 mg Atorvastatin Calcium (Lipitor) 80 mg PO QPM [facility] Last Admin: 01/22/19 20:05 Dose: 80 mg Enoxaparin Sodium (Lovenox) 40 mg SUBQ DAILY [facility] Last Admin: 01/23/19 08:56 Dose: 40 mg Famotidine (Pepcid) 20 mg PO 0800,2100 [facility] Last Admin: 01/23/19 08:56 Dose: 20 mg Ferrous Gluconate (Fergon) 324 mg PO DAILY [facility] Last Admin: 01/23/19 08:56 Dose: 324 mg Hydralazine HCl (Apresoline Inj) 10 mg IVP QID PRN PRN Reason: Hypertensive Emergency Sodium Chloride (Normal Saline 0.9%) 1,000 mls @ 75 mls/hr IV .[id number] [facility] Stop: 01/24/19 10:39 Last Admin: 01/23/19 08:55 Dose: 75 mls/hr Lorazepam (Ativan) 0.5 mg PO Q6H PRN PRN Reason: Anxiety Last Admin: 01/22/19 20:05 Dose: 0.5 mg Metoprolol Succinate (Toprol Xl) 25 mg PO BID [facility] Last Admin: 01/23/19 08:56 Dose: 25 mg Ondansetron HCl (Zofran Inj) 4 mg IVP Q6HR PRN PRN Reason: Nausea / Vomiting Polyethylene Glycol (Miralax) 17 gm PO DAILY [facility] Last Admin: 01/23/19 08:56 Dose: 17 gm Multivit/Folic Acid/Iron (Trinatal Rx 1) 1 tab PO DAILYWM [facility] Last Admin: 01/23/19 08:55 Dose: 1 tab Sodium Chloride (Normal Saline Flush 0.9%) 10 ml IVP PRN PRN PRN Reason: NEEDED PER PROVIDER ORDERS Sodium Chloride (Normal Saline Flush 0.9%) 10 ml IVP 0100,0900,1700 [facility] Last Admin: 01/23/19 08:56 Dose: 10 ml Thiamine HCl (Vitamin B-1) 100 mg PO DAILY [facility] Last Admin: 01/23/19 08:56 Dose: 100 mg Lisinopril 40 mg PO DAILY 11/08/18 Acetaminophen [Tylenol] 650 mg PO Q6H PRN 12/19/18 Metoprolol Tartrate 50 mg PO BID 12/19/18 guaiFENesin/DEXTROMETHORPHAN [Robitussin Dm] 10 ml PO Q6HR PRN 12/19/18 Ferrous Sulfate 325 mg PO DAILY 01/21/19 Ranitidine HCl [Acid Control] 150 mg PO DAILY 01/21/19 Thiamine HCl [Vitamin B-1] 100 mg PO DAILY 01/21/19 Objective - Vital Signs/Intake & Output Reviewed Vital Signs: Yes Vital Signs: Vital Signs x48h Temp Pulse Resp BP Pulse Ox 01/23/19 08:20 37 C 84 16 136/76 H 100 Intake & Output: Intake & Output 01/20/19 01/21/19 01/22/19 01/23/19 23:59 23:59 23:59 23:59 Intake Total 840 3283.333 1300 Output Total 200 1601 100 Balance 640 4107.830 2529 - Objective General Appearance: positive: No acute distress, Alert. negative: Lethargic Eyes Bilateral: positive: Normal inspection, PERRL, No lid inflammation, Conjunctivae nml ENT: positive: ENT inspection nml, Pharynx nml, No signs of dehydration. negative: Purulent nasal drainage, Pharyngeal erythema, Oral lesions Neck: positive: Nml inspection, Thyroid nml, No JVD, Trachea midline. negative: Thyromegaly, Lymphadenopathy (R), Lymphadenopathy (L), Stiff neck, Swelling/bruising, Tracheal deviation Respiratory: positive: Chest non-tender, No respiratory distress, Breath sounds nml. negative: Wheezes, Rales, Rhonchi Cardiovascular: positive: Regular rate & rhythm, No murmur, No gallop. negative: Irregularly irregular, Extrasystoles, Tachycardia, Bradycardia, JVD present, Systolic murmur, Diastolic murmur Peripheral Pulses: 2+ Radial (R), 2+ Radial (L), 2+ Dorsalis pedis (R), 2+ Dorsalis pedis (L) Abdomen: positive: Non-tender, No organomegaly, Nml bowel sounds, No distention. negative: Tenderness, Guarding, Rebound Back: positive: Nml inspection. negative: CVA tenderness (R), CVA tenderness (L) Skin: positive: Color nml, No rash, Warm, Dry. negative: Cyanosis, Diaphoresis, Pallor Extremities: negative: Calf tenderness, Ese's sign/cords Neurologic/Psychiatric: positive: Oriented x3, Weakness, Sensory loss, Slurred/abnml speech. negative: Facial droop - Lab Results Fish Bones: 01/23/19 05:30 01/23/19 05:30 Other Labs: Lab Results x24hrs 01/23/19 01/23/19 Range/Units 05:30 05:30 WBC 5.7 (4.8-10.8) x10^3/uL RBC 4.57 L (4.70-6.10) 10^6/uL Hgb 10.4 L (14.0-18.0) g/dL Hct 33.3 L (42.0-52.0) % MCV 72.9 L (80.0-94.0) fL MCH 22.7 L (27.0-31.0) pg MCHC 31.1 L (32.0-36.0) g/dL RDW 24.8 H (12.0-15.0) % Plt Count 371 (130-450) 10^3/uL MPV 6.3 L (7.4-11.4) fL Neut # (Auto) 3.5 (1.5-6.6) 10^3/uL Lymph # (Auto) 1.3 L (1.5-3.5) 10^3/uL [place] # (Auto) 0.6 (0.0-1.0) 10^3/uL Eos # (Auto) 0.2 (0.0-0.7) 10^3/uL Baso # (Auto) 0.1 (0.0-0.1) 10^3/uL Absolute Nucleated RBC 0.00 x10^3/uL Nucleated RBC % 0.0 /100WBC Manual Slide Review Indicated Platelet Estimate NORMAL (130-450,000) (NORMAL) RBC Morph Micro Appear 1+ MICROCYTOSIS (NORMAL) Sodium 130 L (135-145) mmol/L Potassium 3.8 (3.5-5.0) mmol/L Chloride 98 L (101-111) mmol/L Carbon Dioxide 23 (21-32) mmol/L Anion Gap 9.0 (6-13) BUN 9 (6-20) mg/dL Creatinine 0.8 (0.6-1.2) mg/dL Estimated GFR (MDRD) 98 (>89) Glucose 102 H (70-100) mg/dL Calcium 8.6 (8.5-10.3) mg/dL Total Bilirubin 0.6 (0.2-1.0) mg/dL AST 39 (10-42) IU/L ALT 19 (10-60) IU/L Alkaline Phosphatase 78 (42-121) IU/L Total Protein 6.5 L (6.7-8.2) g/dL Albumin 3.5 (3.2-5.5) g/dL Globulin 3.0 (2.1-4.2) g/dL Albumin/Globulin Ratio 1.2 (1.0-2.2) ABX Reporting Has patient been on IV antibiotics over the past 48 hours?: No Sepsis Event Note (H) - Evaluation Current Stage of Sepsis: Ruled out Assessment/Plan - Problem List (1) CVA (cerebral vascular accident) Impression: 01/23 pt's speech and upper extremity weakness are improved continue PT/OT and ST, followup recommendation continue Aspirin and Lipitor 01/22 MRI reveal pt has large infarction at left [place], pt present significant right side weakness and slurred speech now. consult with ST for pt's new slurred speech from his stroke continue PT/OT continue Aspirin and Lipitor pt has fall, and ataxia [facility] hours ago. pt present right extremities weakness. CT of head reveals acute or subacute stroke on left brain occipital lobe order MRI, US of Carotid, ECHO, Stroke workup tele and vital monitor Daily Aspirin and Lipitor 80mg daily lipid panel test, daily lab monitor PT/OT and social consult. pt seems to have good swallow now (2) Fall Conclusion/Plan: pt report his pain is better, continue pain control, followup orthopedics 01/22 consult with orthopedics for pt's Right hand third metacarpal shaft fracture, followup continue pain control pt was report to fall. pt report he has pain at right hand and left hip. pt's Right hand has third metacarpal shaft fracture. Xray of right hip is pending consulted with orthopedics by ER, will followup pain control. pt is allergy to codein consult with PT/OT (3) Alcohol abuse Conclusion/Plan: 01/22 add ativan for his anxiety. it appear pt has no withdrawal now continue neuro check long history of alcohol abuse, frequent to be sent to ER for alcohol intoxication. today his alcohol level is unremarkable add , and reconcile B-1 will consider CIWA protocol if pt present alcohol withdrawal consult with clinical social work therapist for alcohol quitting (4) Anemia Conclusion/Plan: 01/23 slight increase HGB, continue take iron 01/22 anemia study reveal slight low iron, add iron pill daily chronic iron deficiency anemia. Today his HGB is 11.1. pt has home iron pill reconcile home meds daily lab monitor (5) Hypertension Conclusion/Plan: stable now. pt has acute stroke, will allow BP rise, and add PRN hydralinize (6) Dehydration Conclusion/Plan: 01/22 creatinine is 0.9 today as his baseline, resolved dehydration pt clinically present dry mouth, pt has slight elevated BUN and creatinine hydration with NS, daily lab monitor Qualifiers: CVA mechanism: unspecified Qualified Code(s): I63.9 - Cerebral infarction, unspecified (2) Fall Qualifiers: Encounter type: initial encounter Qualified Code(s): W19.XXXA - Unspecified fall, initial encounter (4) Anemia Qualifiers: Anemia type: unspecified type Qualified Code(s): D64.9 - Anemia, unspecified
[2019-01-23] MEDS: ATORVASTATIN 40 MG TABLET PO SCH (20:46)
[2019-01-24 05:21] LABS: BASOPHILS # (AUTO) 0.1 10^3/uL (0.0-0.1); BASOPHILS % (AUTO) 1.7 %; EOSINOPHILS # (AUTO) 0.2 10^3/uL (0.0-0.7); EOSINOPHILS % (AUTO) 4.9 %; HGB - HEMOGLOBIN 10.2 g/dL (14.0-18.0); LYMPHOCYTES # (AUTO) 1.4 10^3/uL (1.5-3.5); LYMPHOCYTES % (AUTO) 28.8 %; MEAN CORPUSCULAR HEMOGLOBIN 22.8 pg (27.0-31.0); MEAN CORPUSCULAR VOLUME 73.7 fL (80.0-94.0); MEAN PLATELET VOLUME 5.9 fL (7.4-11.4); MONOCYTES # (AUTO) 0.5 10^3/uL (0.0-1.0); MONOCYTES % (AUTO) 10.8 %; NEUTROPHILS # (AUTO) 2.7 10^3/uL (1.5-6.6); NEUTROPHILS % (AUTO) 53.8 %; PLT - PLATELET COUNT 365 10^3/uL (130-450); RED BLOOD COUNT 4.48 10^6/uL (4.70-6.10)
[2019-01-24 05:31] LABS: ALBUMIN 3.5 g/dL (3.2-5.5); ALBUMIN/GLOBULIN RATIO 1.3 (1.0-2.2); BILIRUBIN,TOTAL 0.6 mg/dL (0.2-1.0); CALCIUM 8.5 mg/dL (8.5-10.3); CREATININE 0.7 mg/dL (0.6-1.2); TOTAL PROTEIN 6.3 g/dL (6.7-8.2)
[2019-01-24 05:45] LABS: PLATELET ESTIMATE, MANUAL NORMAL (130-450,000) (NORMAL); PLATELET MORPHOLOGY NORMAL APPEARANCE (NORMAL)
[2019-01-24] MEDS: METOPROLOL SUCCINATE 25 MG TABLET PO SCH (08:32)
[2019-01-24] MEDS: FERROUS GLUCONATE 324 MG TABLET PO SCH (08:32)
[2019-01-24] MEDS: FAMOTIDINE 20 MG TABLET PO SCH (08:32)
[2019-01-24] MEDS: PRENATAL VITAMIN TABLET PO SCH (08:32)
[2019-01-24] MEDS: THIAMINE 100 MG TABLET PO SCH (08:32)
[2019-01-24] MEDS: ASPIRIN 325 MG TABLET PO SCH (08:33)
[2019-01-24] MEDS: ENOXAPARIN 40 MG/0.4 ML SYRINGE SUBQ SCH (08:33)
[2019-01-24] MEDS: POLYETHYLENE GLYCOL 3350 17 GM PACKET PO SCH (08:35)
--- NOTE | 2019-01-24 11:11 | Discharge Plan ---
"Discharge Plan for SNF / [facility] - Discharge Plan And Transition Orders Disposition: 01 Home, Self Care Condition: Poor Allergies and Adverse Reactions: Allergies Allergy/AdvReac Type Severity Reaction Status Date / Time codesumit BurkReac Unknown Verified 01/21/19 11:48 - SNF / [facility] Transition Orders Admit to (Facility): [facility] Under the care of (Name): Bryce Colorado Discharge Diagnosis: acute stroke, fall, right third metacarpal fracture, alcoholism, anemia, HTN, Dehydration Medicare Certification Statement: I do not certify that [facility] long[facility] care is medically necessary on a continuing basis for any of the conditions for which she/he is receiving care during hospitalization. Notify PCP of admission and forward orders to primary provider for signature. Weight on admission and: Daily Call PCP immediately if weight increases by: 2 kg Other Notification Orders: Call PCP immediately if patient develops dyspnea, chest pain/tightness or edema. House Bowel Program: Yes Additional Bowel Program Orders: If no BM after 2 days, nurse may give M.O.M. 30ml PO PRN and/or ducolax Supp 1 [place] and/or SEGUNDO 250mg P.O., and/or senna 1-2 tabs PO. On day 3 nurse may give repeat above order until residents constipation is resolved. Annual Influenza Vaccine (between Apr 11 and November 08): Yes Two-step PPD per [facility] [phone] or approved exception documents: Yes Treatments & Other Orders: Pt may followup health provider when pt is arrival to [facility], pt may stay in his well-padded volar splint for his right hand and forearm over the next one to two weeks, followup the orthopedics clinic as out- pt for re-Xray of his right hand, and application of a knee splint as needed, followup home health PT/OT. Medication Orders: PLEASE REFER TO THE DISCHARGE MEDICATION LIST. Insulin Orders?: No - Medications New Prescriptions: Acetaminophen [Tylenol] 650 mg PO Q6H PRN #30 tablet PRN Reason: PRN PAIN &/OR FEVER Aspirin [Iza] 325 mg PO DAILY #10 tablet Atorvastatin [Lipitor] 80 mg PO QPM #20 tablet - Diet Type: Geriatric Texture: Regular Liquids: Thin May have monthly special meal: Yes - Therapies | Activity Therapy: Evaluation | Treat if indicated: PT, OT Rehabilitation Potential: Maximize functional status Activity: Activity as Tolerated Additional Instructions: Pt may followup health provider when pt is arrival to [facility], pt may stay in his well-padded volar splint for his right hand and forearm over the next one to two weeks, followup the orthopedics clinic as out-pt for re-Xray of his right hand, and application of a knee splint as needed, followup home health PT/OT."
[2019-01-24] MEDS ORDERED: LISINOPRIL 20 MG TABLET PO SCH (11:15)
--- NOTE | 2019-01-24 11:53 | DISCHARGE SUMMARY ---
"Discharge Summary Discharge Date: 01/24/19 Discharging Provider: NUNEZ Primary Care Provider: Bryce Floyd Condition at Discharge: Poor Discharge Disposition: 01 Home, Self Care Discharge Facility Name: [facility] - DIAGNOSES Admission Diagnoses: (1) CVA (cerebral vascular accident) (2) Fall (3) Alcohol abuse (4) Anemia (5) Hypertension (6) Dehydration Discharge Diagnoses with Status of Each Condition: (1) CVA (cerebral vascular accident) pt present right upper and lower extremities weakness, fall. CT of head reveals acute or subacute stroke on left brain occipital lobe, MRI confirm right MANAGEMENT INFORMATION SYSTEMS DIRECTOR infarction. US of Carotid and ECHO reveal unremarkable. PT/OT evaluated and treated pt. pt was recommended to be his previous living condition, and home health PT/OT is arranged for pt. (2) Fall with right third metacarpal fracture consult with orthopedics, and pt had splint, followup orthopedics office in two weeks to evaluate (3) Alcohol abuse advise pt quit (4) Anemia stable, continue home iron supplement (5) Hypertension stable (6) Dehydration resolved - HPI History of Present Illness: Mr. Romero is a 63-yrs old male with a PMH significant for HTN, HLD, VA, CVA, seizure, who was sent by [facility] for medical examination. Pt is a poor history. He report he sometime cigarette smoke and some time drink alcohol. He can not tell when the last time he had a drink. He report he usually use his right hand to drink, but now he can not use his right hand because of pain. He also report he has left hip pain when he tried to move. Upon examination, pt did present mild weakness on his right side on his upper and lower extremities, and has a sluggish speech. Pt swallowed Aspirin medication without difficult re ported at ER. Pt was reported 48 hours ago he began to have ataxia and unsteady walk in [facility]. Lab examination reveals HGB 11.3, slight elevated BUN [address] of head reveals acute or subacute infarction of the left occipital lobe. There is minimal mass-effect and no hemorrhagic component. Xray of his right hand reveals acute nondisplaced comminuted mid right third metacarpal shaft fracture. Left hip Xray is pending now. Orthopedics was consulted by ER provider. Pt is afebrile and hemodynamic stable now. pt was admitted for further evaluation and treatment of acute stroke and fall - CONSULTS | PROCEDURES Consultations: consult with Dr. Le for pt's right hand injury Procedures: pt was prescribed Splint - HOSPITAL COURSE Hospital Course: pt was admitted for right side weakness and fall. pt was fount to have large stroke at right MANAGEMENT INFORMATION SYSTEMS DIRECTOR. PT/OT evaluated and treated pt. pt was recommended to be d/c to his previous living condition. Home health was arranged for pt. pt also was found to have right third metacarpal fracture, pt was consult with orthopedics. pt had splint and recommended to follow up orthopedics office to continue management. - ALLERGIES Allergies/Adverse Reactions: Allergies Allergy/AdvReac Type Severity Reaction Status Date / Time codeine AdvReac Unknown Verified 01/21/19 11:48 - MEDICATIONS Home Medications: Ambulatory Orders Medication Instructions Recorded Confirmed Lisinopril 40 mg PO DAILY 11/08/18 01/21/19 Acetaminophen [Tylenol] 650 mg PO Q6H PRN 12/19/18 01/21/19 Metoprolol Tartrate 50 mg PO BID 12/19/18 01/21/19 guaiFENesin/DEXTROMETHORPHAN 10 ml PO Q6HR PRN 12/19/18 01/21/19 [Robitussin Dm] Ferrous Sulfate 325 mg PO DAILY 01/21/19 01/21/19 Ranitidine HCl [Acid Control] 150 mg PO DAILY 01/21/19 01/21/19 Thiamine HCl [Vitamin B-1] 100 mg PO DAILY 01/21/19 01/21/19 Acetaminophen [Tylenol] 650 mg PO Q6H PRN #30 tablet 01/24/19 Aspirin [Iza] 325 mg PO DAILY #10 tablet 01/24/19 Atorvastatin [Lipitor] 80 mg PO QPM #20 tablet 01/24/19 - PHYSICAL EXAM AT DISCHARGE General Appearance: positive: No acute distress, Alert. negative: Lethargic Eyes Bilateral: positive: Normal inspection, PERRL, No lid inflammation, Conjunctivae nml ENT: positive: ENT inspection nml, Pharynx nml, No signs of dehydration. negative: Purulent nasal drainage, Pharyngeal erythema, Oral lesions Neck: positive: Nml inspection, Thyroid nml, No JVD, Trachea midline. negative: Thyromegaly, Lymphadenopathy (R), Lymphadenopathy (L), Stiff neck, Swelling/bruising, Tracheal deviation Respiratory: positive: Chest non-tender, No respiratory distress, Breath sounds nml. negative: Wheezes, Rales, Rhonchi Cardiovascular: positive: Regular rate & rhythm, No murmur, No gallop, Irregularly irregular. negative: Extrasystoles, Tachycardia, Bradycardia, JVD present, Systolic murmur, Diastolic murmur Peripheral Pulses: positive: 2+ Abdomen: positive: Non-tender, No organomegaly, Nml bowel sounds, No distention. negative: Tenderness, Guarding, Rebound Back: positive: Nml inspection. negative: CVA tenderness (R), CVA tenderness (L) Skin: positive: Color nml, No rash, Warm, Dry. negative: Cyanosis, Diaphoresis, Pallor Extremities: positive: Non-tender. negative: Calf tenderness, Joint swelling, Ese's sign/cords Neurologic/Psychiatric: positive: Oriented x3, Weakness, Sensory loss, Slurred/abnml speech. negative: Facial droop, Depressed mood/affect - LABS Result Diagrams: 01/24/19 05:05 01/24/19 05:05 - SEPSIS Current Stage of Sepsis: Ruled out - FOLLOW UP Follow Up: Pt may followup health provider when pt is arrival to [facility], pt may stay in his well-padded volar splint for his right hand and forearm over the next one to two weeks, followup the orthopedics clinic as out-pt for re-Xray of his right hand, and application of a knee splint as needed, followup home health PT/OT. - TIME SPENT Time Spent in Discharge (Minutes): 55"
[2019-01-24] MEDS: SODIUM CHLORIDE FLUSH 0.9% 10 ML SYRINGE IVP SCH (13:29)
[2019-01-24 15:48] VITALS: BP 181/83
[2019-01-24] MEDS ORDERED: METOPROLOL TARTRATE 50 MG TABLET PO SCH (21:00)
== END 2019-01-24 18:15 | disposition home health service (06) | DRG 65 ==
LOC: EDUNIT# → ED 11:38 → MS2 14:31
PROVIDERS: ADMIT Nurse Practitioner Gerontology; ATTEND Nurse Practitioner Gerontology
DX: I63.332 Cerebral infarction due to thrombosis of left posterior cerebral artery (principal); G81.91 Hemiplegia, unspecified affecting right dominant side; S62.352A Nondisplaced fracture of shaft of third metacarpal bone, right hand, initial encounter for closed fracture; W18.30XA Fall on same level, unspecified, initial encounter; Y92.099 Unspecified place in other non-institutional residence as the place of occurrence of the external cause; R29.709 NIHSS score 9; F10.129 Alcohol abuse with intoxication, unspecified; E86.0 Dehydration; M25.552 Pain in left hip; R47.81 Slurred speech; R26.0 Ataxic gait; I10 Essential (primary) hypertension; D50.9 Iron deficiency anemia, unspecified; E78.5 Hyperlipidemia, unspecified; F41.9 Anxiety disorder, unspecified; I25.2 Old myocardial infarction; Z66 Do not resuscitate; Z91.81 History of falling; Z79.899 Other long term (current) drug therapy; Z86.69 Personal history of other diseases of the nervous system and sense organs; Z72.0 Tobacco use; Z88.5 Allergy status to narcotic agent
CPT/HCPCS: 36415; 70450; 70551; 71045; 73130; 73502; 80048; 80053; 80061; 80306; 80320; 81003; 82607; 82728; 83540; 83615; 83735; 84466; 84484; 85025; 85044; 85610; 92610; 93005; 93306; 93880; 97161; 97166; 97530; 99284; A9270; J1650; 81001; 83721; 87086

== ENCOUNTER 2019-03-14 13:21 | Outpatient (CLI) | payer MEDICAID | END 2019-03-14 13:22 | disposition critical access hospital (66) | LOC: EMS 13:21 | PROVIDERS: ATTEND Surgery | DX: Z72.89 Other problems related to lifestyle (principal) | CPT/HCPCS: A0425; A0429 ==

== ENCOUNTER 2019-03-14 13:38 | Emergency (ER) | payer MEDICAID ==
--- NOTE | 2019-03-14 13:30 | ED Physician Documentation ---
History of Present Illness - Stated complaint Stated Complaint: FALL - Additonal information Additional information: This is a 64-year-old male with a history of stroke with right-sided deficits, alcohol use, [facility], who was brought in after a fall. Patient reportedly was drinking, and he was walking, cannot describe when he tripped and fell. The fall was unwitnessed and patient is unable to describe exactly what happened. He denies hitting his head. He denies any pain, specifically no chest pain, arm pain, leg pain. He denies new weakness or numbness, states that his right arm and they are somewhat weak all the time. He is a very poor historian. Review of Systems Unable to obtain: Other (Limited by mental status) Constitutional: denies: Fever Cardiac: denies: Chest pain / pressure Respiratory: denies: Dyspnea GI: denies: Abdominal Pain Musculoskeletal: denies: Neck pain, Back pain PD PAST MEDICAL HISTORY - Past Medical History Past Medical History: Yes Neuro: CVA (RLE and RUE weakness) - Present Medications Home Medications: Ambulatory Orders Medication Instructions Recorded Confirmed RX: Lisinopril 40 mg PO DAILY 11/08/18 01/21/19 RX: Acetaminophen [Tylenol] 650 mg PO Q6H PRN 12/19/18 01/21/19 RX: Metoprolol Tartrate 50 mg PO BID 12/19/18 01/21/19 RX: guaiFENesin/DEXTROMETHORPHAN 10 ml PO Q6HR PRN 12/19/18 01/21/19 [Robitussin Dm] RX: Ferrous Sulfate 325 mg PO DAILY 01/21/19 01/21/19 RX: Ranitidine HCl [Acid Control] 150 mg PO DAILY 01/21/19 01/21/19 RX: Thiamine HCl [Vitamin B-1] 100 mg PO DAILY 01/21/19 01/21/19 Acetaminophen [Tylenol] 650 mg PO Q6H PRN #30 tablet 01/24/19 RX: Aspirin [Zia] 325 mg PO DAILY #10 tablet 01/24/19 RX: Atorvastatin [Lipitor] 80 mg PO QPM #20 tablet 01/24/19 - Allergies Allergies/Adverse Reactions: Allergies Allergy/AdvReac Type Severity Reaction Status Date / Time codeine AdvReac Unknown Verified 01/21/19 11:48 PD ED PE NORMAL - Vitals Vital signs reviewed: Yes - General General: Other (In no acute distress) - HEENT HEENT: Atraumatic - Neck Neck: Other (No midline neck pain, no ecchymosis, no lacerations) - Cardiac Cardiac: RRR - Respiratory Respiratory: No respiratory distress, Clear bilaterally - Abdomen Abdomen: Soft, Non tender, Non distended - Derm Derm: Warm and dry - Extremities Extremities: Other (Right wrist/forearm is in a splint. There is a small abrasion over his proximal forearm. There is no tenderness of the Bilateral elbows, shoulders, or entire lower extremities to palpation. Patient is able to move all extremities.) - Neuro Neuro: Other (Patient is able to follow commands, provide his name, he is somewhat disoriented and does not know the date. Strength is 4+ in the right upper extremity with elbow flexion, and strength of the right hand is unable to be tested due to presence of a splint. Left arm has 5 out of 5 strength with elbow flexion extension hand squeeze. 5 out of 5 strength with left leg hip flexion ankle dorsiflexion and plantarflexion, 4 out of 5 strength with right hip flexion and ankle dorsi and plantarflexion. Patient responds to light touch over all extremities.) Results - Vitals Vitals: Vital Signs - 24 hr 03/14/19 03/14/19 13:45 18:51 Temperature 36.6 C 36.6 C Heart Rate 69 80 Respiratory 16 20 Rate Blood Pressure 116/62 125/68 O2 Saturation 96 98 Oxygen O2 Source Room air - Labs Labs: Laboratory Tests 03/14/19 03/14/19 14:30 14:30 WBC 9.4 RBC 3.99 L Hgb 9.2 L Hct 30.5 L MCV 76.4 L MCH 23.1 L MCHC 30.2 L RDW 15.3 H Plt Count 376 MPV 8.3 Neut # (Auto) 6.0 Lymph # (Auto) 2.3 [place] # (Auto) 0.5 Eos # (Auto) 0.5 Baso # (Auto) 0.2 H Absolute Nucleated RBC 0.00 Nucleated RBC % 0.0 Sodium 132 L Potassium 4.1 Chloride 99 L Carbon Dioxide 20 L Anion Gap 13.0 BUN 12 Creatinine 0.6 Estimated GFR (MDRD) 136 Glucose 93 Calcium 8.6 Total Bilirubin 0.4 AST 24 ALT 17 Alkaline Phosphatase 90 Total Protein 6.8 Albumin 3.9 Globulin 2.9 Albumin/Globulin Ratio 1.3 Lipase 63 H Ethyl Alcohol 198.7 - Rads (name of study) CT Head Radiology: Final report received (No acute hemorrhage or midline shift. Subacute infarcts, appear similar to prior.) PD MEDICAL DECISION MAKING - ED course Complexity details: considered differential (Alcohol intoxication, fracture, intracranial hemorrhage, drug use, stroke, chronic weakness, electrolyte abnormality.) ED course: On initial examination patient is nontoxic-appearing, he is somewhat confused, according to staff that have interacted with him before this is near his baseline. He does have alcohol on his breath. His neurologic exam is notable for some right-sided weakness which appears stable from descriptions and his past admission for a stroke. He is not complaining of any pain at this time, and on his exam there are no signs of acute trauma in his extremities head neck or thorax. CBC is notable for an anemia that is near past values at 9.2. Patient has a mild hyponatremia and hypochloremia which are also stable from past visits. Lipase is mildly elevated at 63, however patient is tolerating p.o. without issue and does not complain of any abdominal pain. Alcohol level on arrival was 198. Patient was allowed to metabolize in the emergency department, CT head was obtained and showed no acute intracranial process, it did show the subacute infarcts from patient's past strokes. After several hours patient was clini sinan sober an at his baseline, he is ambulating and tolerating p.o. without issue. Overall he appears to have had alcohol intoxication leading to a fall, without signs of significant acute traumatic injury. He is able to answer my basic questions, is ambulatory and steady on his feet, and is eager to go home. Patient was discharged to [facility] with return precautions and advised to avoid alcohol and other drugs. and to follow up with his PCP closely. Departure - Departure Disposition: 01 Home, Self Care Clinical Impression: Fall, Alcohol abuse, Alcohol intoxication Condition: Stable Instructions: ED Alcohol Intoxication Follow-Up: Your,PCP [Other] (For follow up on fall and alcohol use, within one week) Comments: Your seen today after a fall. You have been drinking alcohol. WE do not see signs of a serious injury at this time, but please avoid using alcohol and return to the emergency department if you have new or worsening symptoms. Follow-up with your primary care provider as soon as possible. Discharge Date/Time: 03/14/19 19:45
--- NOTE | 2019-03-14 14:52 | CT Report ---
Reason: Fall, intoxication Procedure Date: 03/14/2019 Accession Number: [id number] / [id number] Procedure: CT - HEAD WO CPT Code: FULL RESULT: EXAM: CT HEAD EXAM DATE: 03/14/2019 02:18 PM. CLINICAL HISTORY: Fall, intoxication. COMPARISON: HEAD W/O 01/21/2019 1:22 PM. TECHNIQUE: Multiaxial CT images were obtained from the foramen magnum to the vertex. Reformats: Sagittal and coronal. IV contrast: None. In accordance with CT protocol optimization, one or more of the following dose reduction techniques were utilized for this exam: automated exposure control, adjustment of mA and/or KV based on patient size, or use of iterative reconstructive technique. FINDINGS: Parenchyma: There is encephalomalacia in the left frontal lobe, parietal lobe and occipital lobe consistent with infarcts. There is generalized parenchymal volume loss. No acute hemorrhage. There are small basal ganglia hypodensities. Extraaxial Spaces: No subdural or epidural collections identified. Ventricles: The ventricles appear enlarged. Ventricles normal in position. Sinuses and Orbits: Imaged paranasal sinuses, orbits, and mastoids show no significant abnormality. Bones: No evidence of fracture or calvarial defect. Other: None. IMPRESSION: 1. Large late subacute to chronic infarcts in the left frontal, parietal and occipital lobes with encephalomalacia. 2. No acute hemorrhage or midline shift. 3. Cerebral volume loss. RADIA
[2019-03-14 14:54] LABS: BASOPHILS # (AUTO) 0.2 10^3/uL (0.0-0.1); BASOPHILS % (AUTO) 1.8 %; EOSINOPHILS # (AUTO) 0.5 10^3/uL (0.0-0.7); EOSINOPHILS % (AUTO) 4.8 %; HGB - HEMOGLOBIN 9.2 g/dL (14.0-18.0); LYMPHOCYTES # (AUTO) 2.3 10^3/uL (1.5-3.5); MEAN CORPUSCULAR HEMOGLOBIN 23.1 pg (27.0-31.0); MEAN CORPUSCULAR HGB CONC 30.2 g/dL (32.0-36.0); MEAN CORPUSCULAR VOLUME 76.4 fL (80.0-94.0); MEAN PLATELET VOLUME 8.3 fL (7.4-11.4); MONOCYTES # (AUTO) 0.5 10^3/uL (0.0-1.0); MONOCYTES % (AUTO) 5.7 %; NEUTROPHILS % (AUTO) 63.2 %; PLT - PLATELET COUNT 376 10^3/uL (130-450); RED BLOOD COUNT 3.99 10^6/uL (4.70-6.10); RED CELL DISTRIBUTION WIDTH 15.3 % (12.0-15.0); WHITE BLOOD COUNT 9.4 x10^3/uL (4.8-10.8)
[2019-03-14 15:08] LABS: ALBUMIN 3.9 g/dL (3.2-5.5); ALBUMIN/GLOBULIN RATIO 1.3 (1.0-2.2); BILIRUBIN,TOTAL 0.4 mg/dL (0.2-1.0); CALCIUM 8.6 mg/dL (8.5-10.3); CREATININE 0.6 mg/dL (0.6-1.2); TOTAL PROTEIN 6.8 g/dL (6.7-8.2)
[2019-03-14 18:51] VITALS: BP 125/68
== END 2019-03-14 19:45 | disposition home or self-care (01) ==
LOC: EDUNIT# → ED 13:38
DX: F10.129 Alcohol abuse with intoxication, unspecified (principal); S50.811A Abrasion of right forearm, initial encounter; W19.XXXA Unspecified fall, initial encounter
CPT/HCPCS: 36415; 70450; 80053; 80320; 83690; 85025; 99283; 99284

== ENCOUNTER 2019-06-06 10:58 | Outpatient (CLI) | payer MEDICAID | END 2019-06-06 10:59 | disposition critical access hospital (66) | LOC: EMS 10:58 | PROVIDERS: ATTEND Surgery | DX: R07.9 Chest pain, unspecified (principal) | CPT/HCPCS: A0425; A0429; A0999 ==

== ENCOUNTER 2019-06-06 11:15 | Emergency (ER) | payer MEDICAID ==
[2019-06-06 12:10] LABS: BASOPHILS # (AUTO) 0.1 10^3/uL (0.0-0.1); BASOPHILS % (AUTO) 1.8 %; EOSINOPHILS # (AUTO) 0.3 10^3/uL (0.0-0.7); EOSINOPHILS % (AUTO) 4.1 %; HGB - HEMOGLOBIN 10.7 g/dL (14.0-18.0); LYMPHOCYTES # (AUTO) 1.4 10^3/uL (1.5-3.5); MEAN CORPUSCULAR HEMOGLOBIN 22.9 pg (27.0-31.0); MEAN CORPUSCULAR HGB CONC 30.1 g/dL (32.0-36.0); MEAN CORPUSCULAR VOLUME 76.2 fL (80.0-94.0); MEAN PLATELET VOLUME 8.4 fL (7.4-11.4); MONOCYTES # (AUTO) 0.7 10^3/uL (0.0-1.0); MONOCYTES % (AUTO) 8.6 %; NEUTROPHILS # (AUTO) 5.4 10^3/uL (1.5-6.6); NEUTROPHILS % (AUTO) 67.1 %; PLT - PLATELET COUNT 407 10^3/uL (130-450); RED BLOOD COUNT 4.67 10^6/uL (4.70-6.10); RED CELL DISTRIBUTION WIDTH 14.8 % (12.0-15.0)
--- NOTE | 2019-06-06 12:18 | XRAY Report ---
Reason: chest pain Procedure Date: 06/06/2019 Accession Number: [id number] / [id number] Procedure: XR - Chest 1 View X-Ray CPT Code: 95942 FULL RESULT: EXAM: CHEST RADIOGRAPHY EXAM DATE: 06/06/2019 11:45 AM. CLINICAL HISTORY: Chest pain. COMPARISON: CHEST 1 VIEW 01/22/2019 6:43 AM. TECHNIQUE: 1 view. FINDINGS: Lungs/Pleura: No focal opacities evident. No pleural effusion. No pneumothorax. Mediastinum: Heart and mediastinal contours are notable for aortic calcification. Other: None. IMPRESSION: No acute cardiopulmonary abnormality demonstrated. RADIA
[2019-06-06 12:26] LABS: ALBUMIN 4.3 g/dL (3.2-5.5); ALBUMIN/GLOBULIN RATIO 1.4 (1.0-2.2); BILIRUBIN,TOTAL 0.9 mg/dL (0.2-1.0); CALCIUM 9.2 mg/dL (8.5-10.3); CREATININE 0.8 mg/dL (0.6-1.2); TOTAL PROTEIN 7.4 g/dL (6.7-8.2)
--- NOTE | 2019-06-06 12:33 | ED Physician Documentation ---
PD HPI CHEST PAIN - Stated complaint Stated Complaint: CP - Chief complaint Chief Complaint: General - History obtained from History obtained from: Patient - History of Present Illness Timing - onset: How many days ago (3-4) Severity Comments: Unable to rate Quality: Other (Patient was unable to describe the pain) Location: Left chest (Just to the left of midline above the level of the nipple) Worsened by: Inspiration Associated symptoms: No: Shortness of air Similar symptoms before: Has not had sx before Recently seen: Not recently seen - Additional information Additional information: Is a 64-year-old man presents from [facility] with complaints that he had chest pains for about 4 days. He says it is there constantly and he has not taken any medications for it. He denies shortness of breath, cough, fever or vomiting. Denies history of heart disease. It is noted that the patient is an extremely poor historian he is or oriented to his name but cannot even tell me where he is or what day it is. Whenever I asked him a question he frequently just stares off into the corner of the room without ever answering. He is noted to have some clogged deformity of his right third fourth and fifth digits but denies that he has had a stroke. He states that he had a history of seizures but it has been a long time. Review of Systems Unable to obtain: Dementia Constitutional: denies: Fever Cardiac: reports: Chest pain / pressure Respiratory: denies: Cough GI: denies: Vomiting Musculoskeletal: reports: Other (Denied injury) PD PAST MEDICAL HISTORY - Past Medical History Cardiovascular: Hypertension, High cholesterol, OR Respiratory: None Neuro: CVA (RLE and RUE weakness) Endocrine/Autoimmune: None GI: Pancreatitis : None HEENT: None Psych: None, Other Musculoskeletal: None Derm: None - Past Surgical History Past Surgical History: Yes General: Other - Present Medications Home Medications: Ambulatory Orders Medication Instructions Recorded Confirmed Lisinopril 40 mg PO DAILY 11/08/18 01/21/19 Acetaminophen [Tylenol] 650 mg PO Q6H PRN 12/19/18 01/21/19 Metoprolol Tartrate 50 mg PO BID 12/19/18 01/21/19 guaiFENesin/DEXTROMETHORPHAN 10 ml PO Q6HR PRN 12/19/18 01/21/19 [Robitussin Dm] Ferrous Sulfate 325 mg PO DAILY 01/21/19 01/21/19 Ranitidine HCl [Acid Control] 150 mg PO DAILY 01/21/19 01/21/19 Thiamine HCl [Vitamin B-1] 100 mg PO DAILY 01/21/19 01/21/19 Acetaminophen [Tylenol] 650 mg PO Q6H PRN #30 tablet 01/24/19 Aspirin [Iza] 325 mg PO DAILY #10 tablet 01/24/19 Atorvastatin [Lipitor] 80 mg PO QPM #20 tablet 01/24/19 - Allergies Allergies/Adverse Reactions: Allergies Allergy/AdvReac Type Severity Reaction Status Date / Time codeine AdvReac Unknown Verified 01/21/19 11:48 - Social History Does the pt smoke?: No Smoking Status: Never smoker Does the pt drink ETOH?: Yes Does the pt have substance abuse?: Yes - Immunizations Immunizations are current?: No Immunizations: TDAP >10years/unknown - POLST Patient has POLST: No POLST Status: Full Code PD ED PE NORMAL - Vitals Vital signs reviewed: Yes - General General: No acute distress, Well developed/nourished - HEENT HEENT: Atraumatic, PERRL, Moist mucous membranes - Neck Neck: No adenopathy - Cardiac Cardiac: RRR, No murmur - Respiratory Respiratory: No respiratory distress, Clear bilaterally - Abdomen Abdomen: Normal bowel sounds, Soft - Derm Derm: Normal color, Warm and dry, No rash, Other (No bruising noted to the chest) - Extremities Extremities: No edema - Neuro Neuro: Other (He is oriented only to himself. He has the above-noted deformity of the right hand and although he appears to be able to move that right upper extremity he tends to hold it in a more fixed position. He is able to move both of his lower extremities in the left upper extremity. No obvious sensory deficit. His speech is not slurred.) - Psych Psych: Other (Has a flat affect.) Results - Vitals Vitals: Vital Signs - 24 hr 06/06/19 06/06/19 06/06/19 11:19 12:38 13:26 Temperature 36.9 C Heart Rate 73 64 68 Respiratory 20 15 18 Rate Blood Pressure 169/92 H 158/86 H 148/82 H O2 Saturation 100 98 100 Oxygen O2 Source Room air - EKG (time done) 1135 Rate: Rate (enter#) (73) Rhythm: NSR Intervals: Normal [place], Other (Narrow QRS) Ischemia: Normal ST segments - Labs Labs: Laboratory Tests 06/06/19 06/06/19 06/06/19 12:00 12:00 12:00 WBC 8.0 RBC 4.67 L Hgb 10.7 L Hct 35.6 L MCV 76.2 L MCH 22.9 L MCHC 30.1 L RDW 14.8 Plt Count 407 MPV 8.4 Neut # (Auto) 5.4 Lymph # (Auto) 1.4 L [place] # (Auto) 0.7 Eos # (Auto) 0.3 Baso # (Auto) 0.1 Absolute Nucleated RBC 0.00 Nucleated RBC % 0.0 Sodium 135 Potassium 4.3 Chloride 99 L Carbon Dioxide 27 Anion Gap 9.0 BUN 14 Creatinine 0.8 Estimated GFR (MDRD) 97 Glucose 95 Calcium 9.2 Total Bilirubin 0.9 AST 18 ALT 15 Alkaline Phosphatase 89 Troponin I High Sens 4.0 Total Protein 7.4 Albumin 4.3 Globulin 3.1 Albumin/Globulin Ratio 1.4 Lipase 61 H - Rads (name of study) cxr Radiology: EMP read contemporaneously, See rad report (Negative acute changes.) PD MEDICAL DECISION MAKING - ED course Complexity details: reviewed old records, reviewed results, re-evaluated patient, d/w patient ED course: This patient's mental status and physical limitations with the right upper extremity weakness that were noted appear to be chronic for him based on his old records here. He had reproducible chest wall tenderness with a normal EKG and chest x-ray. His troponin was normal despite his history of 4 to 5 days of constant pain. This did not appear to be cardiac in origin. He was given Toradol 30 mg IV and had complete resolution of the pain and was not even tender with palpation anymore. He got up and ambulated to the bathroom. He is discharged back to [facility] and outpatient follow-up. Departure - Departure Disposition: 01 Home, Self Care Clinical Impression: Atypical chest pain Condition: Good Instructions: ED Chest Pain NonCardiac Follow-Up: Hannah Gtz MD [Primary Care Provider] - Comments: Follow-up with your primary care provider for reevaluation if the pain persists.
[2019-06-06] MEDS ORDERED: KETOROLAC 30 MG/ML VIAL IVP STA (13:16)
[2019-06-06 14:32] VITALS: BP 156/82
== END 2019-06-06 15:10 | disposition home or self-care (01) ==
LOC: EDUNIT# → ED 11:15
DX: R07.89 Other chest pain (principal); F03.90 Unspecified dementia, unspecified severity, without behavioral disturbance, psychotic disturbance, mood disturbance, and anxiety; I10 Essential (primary) hypertension
CPT/HCPCS: 36415; 71045; 80053; 83690; 84484; 85025; 93005; 96374; 99284

== ENCOUNTER 2022-11-12 11:02 | Outpatient (CLI) | payer MEDICARE, MEDICAID | END 2022-11-12 11:03 | disposition critical access hospital (66) | LOC: EMS 11:02 | DX: R11.10 Vomiting, unspecified (principal) | CPT/HCPCS: A0425; A0429 ==

== ENCOUNTER 2022-11-12 11:22 | Emergency (ER) | payer MEDICARE, MEDICAID ==
[2022-11-12] MEDS ORDERED: SODIUM CHLORIDE 0.9% 1,000 ML IV STA ×2 (11:30)
--- NOTE | 2022-11-12 11:35 | ED Physician Documentation ---
History of Present Illness - Stated complaint Stated Complaint: UNABLE TO EAT/SWALLOW - History obtained from History obtained from: EMS - Additonal information Additional information: Patient is a 67-year-old male who is brought in from [facility]. He reportedly has a history of dementia, prostate cancer, stroke, TIA, hypertension, alcoholism, pancreatitis. Reportedly he has not been eating and drinking well for several months. Saw his doctor last week, but the residential did not feel that he was having enough oral intake so sent him here for evaluation. Reportedly the residential states that the patient does not want any feeding tubes. Unclear if he is currently undergoing any sort of therapy for his prostate cancer. Patient is unable to give any significant history. Review of Systems Constitutional: denies: Fever GI: denies: Vomiting Skin: denies: Rash Neurologic: denies: Headache PD PAST MEDICAL HISTORY - Past Medical History Cardiovascular: Hypertension, High cholesterol, [place] Respiratory: None Neuro: CVA (RLE and RUE weakness) Endocrine/Autoimmune: None GI: Pancreatitis : None HEENT: None Psych: None, Other Musculoskeletal: None Derm: None - Past Surgical History Past Surgical History: Yes General: Other - Present Medications Home Medications: Ambulatory Orders Medication Instructions Recorded Confirmed lisinopriL [Lisinopril] 40 mg PO DAILY 11/08/18 11/12/22 guaiFENesin/DEXTROMETHORPHAN 10 ml PO Q6HR PRN 12/19/18 11/12/22 [Robitussin Dm] Ferrous Sulfate 325 mg PO DAILY 01/21/19 11/12/22 Thiamine HCl [Vitamin B-1] 100 mg PO DAILY 01/21/19 11/12/22 Acetaminophen [Tylenol] 650 mg PO Q6H PRN #30 tablet 01/24/19 11/12/22 Aspirin [Iza] 325 mg PO DAILY #10 tablet 01/24/19 11/12/22 Atorvastatin [Lipitor] 80 mg PO QPM #20 tablet 01/24/19 11/12/22 Metoprolol Succinate [Toprol Xl] 75 mg PO DAILY 11/12/22 11/12/22 Omeprazole Magnesium 20 mg PO DAILY 11/12/22 11/12/22 - Allergies Allergies/Adverse Reactions: Allergies Allergy/AdvReac Type Severity Reaction Status Date / Time codeine AdvReac Unknown Verified 11/12/22 11:31 - Social History Does the pt smoke?: No Smoking Status: Never smoker Does the pt drink ETOH?: Yes Does the pt have substance abuse?: Yes - Immunizations Immunizations are current?: No Immunizations: TDAP >10years/unknown - POLST Patient has POLST: No POLST Status: Full Code PD ED PE NORMAL - Vitals Vital signs reviewed: Yes - General General: No acute distress, Other (alert, mostly non-verbal, occasional grunting) - HEENT HEENT: Moist mucous membranes - Neck Neck: Supple, no meningeal sign - Cardiac Cardiac: RRR, Strong equal pulses - Respiratory Respiratory: No respiratory distress, Clear bilaterally - Abdomen Abdomen: Soft, Non tender, Non distended - Derm Derm: Warm and dry - Extremities Extremities: No edema, No calf tenderness / cord - Neuro Neuro: Other (alert) Results - Vitals Vitals: Vital Signs - 24 hr 11/12/22 11/12/22 11/12/22 11:31 11:48 13:58 Temperature 37 C Heart Rate 74 72 78 Respiratory 18 16 18 Rate Blood Pressure 165/92 H 166/70 H 171/91 H O2 Saturation 100 100 97 Oxygen O2 Source Room air - Labs Labs: Laboratory Tests 11/12/22 11/12/22 11:45 11:45 WBC 10.7 RBC 4.48 L Hgb 9.2 L Hct 33.3 L MCV 74.3 L MCH 20.5 L MCHC 27.6 L RDW 19.1 H Plt Count 430 MPV 8.7 Neut # (Auto) 8.9 H Lymph # (Auto) 1.0 L [place] # (Auto) 0.6 Eos # (Auto) 0.1 Baso # (Auto) 0.1 Absolute Nucleated RBC 0.00 Nucleated RBC % 0.0 Manual Slide Review Indicated Platelet Estimate NORMAL (130-450,000) Platelet Morphology NORMAL APPEARANCE RBC Morph Micro Appear 1+ ACANTHOCYTES Sodium 144 Potassium 4.1 Chloride 113 H Carbon Dioxide 27 Anion Gap 4.0 L BUN 21 H Creatinine 0.9 Estimated GFR (MDRD) 84 L Glucose 122 H Calcium 9.1 Phosphorus 3.6 Magnesium 2.2 Total Bilirubin 0.4 AST 14 ALT 11 Alkaline Phosphatase 110 Total Protein 7.0 Albumin 3.9 Globulin 3.1 Albumin/Globulin Ratio 1.3 Lipase 68 H Ethyl Alcohol < 5.0 - Rads (name of study) CT abdomen pelvis Relevant Findings:: Final report received, See rad report CT chest Relevant Findings:: Final report received, See rad report PD Medical Decision Making - ED course Complexity details: reviewed results, re-evaluated patient, considered differential, d/w patient ED course: 67-year-old male history of dementia, prostate cancer, stroke. His CBC shows a chronic anemia. CMP does not show any significant abnormalities, mild hyperchloremia, mildly elevated BUN. Alcohol level is negative, does have a history of alcohol abuse and pancreatitis. CT scan of the chest, abdomen pelvis was performed. Appears to have thickening of the distal esophagus, possible esophageal mass, endoscopy will be recommended for the patient as follow-up. His CT of the abdomen pelvis appears to show a renal cell carcinoma on the left kidney, there appear to be metastases into the liver. He was given IV fluids here. Tolerating liquids without any difficulty here. Recommend full liquid diet and further work-up with his doctor. Patient was informed of the above results, but they were also written on his discharge paperwork so [facility] can give them to his doctor. I do not have access to his doctor's name here today as this information was not sent with the patient. This document was made in part using voice recognition software. While efforts are made to proofread this document, sound alike and grammatical errors may occur. Departure - Departure Disposition: 01 Home, Self Care Clinical Impression: Esophageal mass, Renal mass, Metastasis to liver Anemia Qualifiers: Anemia type: unspecified type Qualified Code(s): D64.9 - Anemia, unspecified Condition: Good Instructions: ED Diet Full Liquid Follow-Up: your,doctor in 3 days [Other] Comments: Haris will need to be maintained on a full liquid diet. His doctor will need to refer him for an endoscopy as there does appear to be a distal esophageal wall thickening with abnormal soft tissue in the upper esophagus. The endoscopy will help to further evaluate the cause of the wall thickening and soft tissue densities. His pills may need to be crushed or changed to liquid versions. In the CT scan of his abdomen and pelvis he appears to have a right renal lesion that is concerning for renal cell carcinoma, measures up to 2.7 cm. There are also multiple indeterminate liver lesions, which could be due to malignancy. His doctor will need to refer him for biopsy of the lesions and any further care with oncology. PROCEDURE: CHEST W INDICATIONS: 20lb weight loss, h/o prostate CA CONTRAST: 100ml OMnipaque 300 TECHNIQUE: After the administration of intravenous contrast, 1 mm axial images were acquired from the pulmonary apices through the posterior costophrenic angles. Axial 5 mm soft tissue kernel reconstructions were performed as well as 8 mm axial MIP and coronal and sagittal 5 mm reformations. For radiation dose reduction, the following was used: automated exposure control, adjustment of mA and/or kV according to patient size. COMPARISON: None FINDINGS: Image quality: Good Lungs and pleura:Scattered scarring/atelectasis. Left Bochdalek's hernia. No pleural effusions. No airspace consolidation. Mild centrilobular nodularity is seen in the medial left lower lobe. There are also tiny micronodules for example in the right image 3/245. Multiple subpleural nodules are also seen in the right middle lobe. Mediastinum, heart, and esophagus: Distal esophageal wall thickening, as well as probable hernia and reflux there are suspicious soft tissue densities around the upper esophagus, most notably axial image 13 with soft tissue fullness of the upper esophagus and adjacent soft tissue density measuring 1.5 cm x 2.2 cm. Prominent mediastinal lymph nodes are also present. Overall normal heart size. Coronary calcifications. Chest wall and thyroid: Unremarkable Upper abdomen: Separately dictated Bones: No acute or suspicious osseous finding. There are degenerative changes. IMPRESSION: Abnormal esophagus, with moderate debris, hiatal hernia, distal esophageal wall thickening, and abnormal soft tissue density in and around the esophagus at the upper aspect (reference image series 2 image 13). Recommend endoscopy in the setting of weight loss. Centrilobular nodularity is probably related to aspiration in this clinical context in the lungs. Other tiny pulmonary nodules are present bilaterally. Attention on follow-up is recommended, in 3 months or sooner depending on esophagus findings. EXAM: [id number] CT/ABPEW ([id number]) PROCEDURE: ABDOMEN/PELVIS W INDICATIONS: 20lb weight loss, h/o prostate CA CONTRAST: IV 100ml OMnipaque 300 TECHNIQUE: After the administration of IV contrast, 5 mm thick sections acquired from the diaphragms to the symphysis. 5 mm thick coronal and sagittal reformats were acquired. For radiation dose reduction, the following was used: automated exposure control, adjustment of mA and/or kV according to patient size. COMPARISON: 12/19/2018 FINDINGS: Image quality: Good Lower chest: Separately dictated Solid organs: Subcentimeter lesions are too small to characterize, not definitely present on prior imaging, for example lesion adjacent to the fissure for the ligamentum teres (10/24) measuring 8 mm. Gallbladder is unremarkable. Similar prominence of the biliary tree and pancreatic duct, probably senescent. No splenomegaly. No adrenal nodules. A right renal mass is present measuring 2.7 x 2.6 x 2.0 cm (axial image 29, coronal image 37). The right renal vein is patent. Other suspected cysts are present. No hydronephrosis. Vessels and lymph nodes: Atherosclerotic calcifications. No abdominal aortic aneurysm. Portal vein is patent. Suspected soft tissue density adjacent to the right inguinal canal is again seen, probably from hernia repair. There are multiple pelvic clips. Bowel and peritoneum: No small bowel obstruction. No suspicious ascites. Bowel suture lines. Body wall: Unremarkable Pelvis: Pelvic dissection clips. Bladder is unremarkable. Prostatectomy changes. Bones: No acute or suspicious osseous abnormality. Degenerative changes are present. IMPRESSION: The right renal lesion measuring up to 2.7 cm (axial image 29) is compatible with renal cell carcinoma. The right renal vein is patent. It is in close proximity to the right posterior pararenal fascia. Multiple indeterminate liver lesions are too small to characterize, but might be new compared to 2019 and are suspicious in the setting of suspected multi malignancy history (reference 10/24). Further evaluation could be obtained with MRI. Other findings as above. Chest findings are separately dictated. Discharge Date/Time: 11/12/22 16:06
[2022-11-12 11:50] LABS: BASOPHILS # (AUTO) 0.1 10^3/uL (0.0-0.1); BASOPHILS % (AUTO) 0.7 %; EOSINOPHILS # (AUTO) 0.1 10^3/uL (0.0-0.7); EOSINOPHILS % (AUTO) 0.8 %; HCT - HEMATOCRIT 33.3 % (42.0-52.0); HGB - HEMOGLOBIN 9.2 g/dL (14.0-18.0); LYMPHOCYTES % (AUTO) 9.3 %; MEAN CORPUSCULAR HEMOGLOBIN 20.5 pg (27.0-31.0); MEAN CORPUSCULAR HGB CONC 27.6 g/dL (32.0-36.0); MEAN CORPUSCULAR VOLUME 74.3 fL (80.0-94.0); MEAN PLATELET VOLUME 8.7 fL (7.4-11.4); MONOCYTES # (AUTO) 0.6 10^3/uL (0.0-1.0); MONOCYTES % (AUTO) 5.2 %; NEUTROPHILS # (AUTO) 8.9 10^3/uL (1.5-6.6); NEUTROPHILS % (AUTO) 83.7 %; PLT - PLATELET COUNT 430 10^3/uL (130-450); RED BLOOD COUNT 4.48 10^6/uL (4.70-6.10); RED CELL DISTRIBUTION WIDTH 19.1 % (12.0-15.0); WHITE BLOOD COUNT 10.7 x10^3/uL (4.8-10.8)
[2022-11-12 11:56] LABS: SLIDE REVIEW? Indicated
[2022-11-12 12:05] LABS: ALBUMIN 3.9 g/dL (3.2-5.5); ALBUMIN/GLOBULIN RATIO 1.3 (1.0-2.2); ALKALINE PHOSPHATASE 110 IU/L (42-121); ALT ALANINE AMINOTRANSFERASE 11 IU/L (10-60); AST ASPARTATE AMINOTRANSFERASE 14 IU/L (10-42); BILIRUBIN,TOTAL 0.4 mg/dL (0.2-1.0); BUN - BLOOD UREA NITROGEN 21 mg/dL (6-20); CALCIUM 9.1 mg/dL (8.5-10.3); CARBON DIOXIDE - CO2 27 mmol/L (21-32); CHLORIDE 113 mmol/L (101-111); CREATININE 0.9 mg/dL (0.6-1.2); ETOH - ETHANOL < 5.0 mg/dL; GFR - MDRD 84 (>89); GLUCOSE 122 mg/dL (70-100); LIPASE 68 U/L (22-51); MAGNESIUM 2.2 mg/dL (1.7-2.8); PHOSPHORUS 3.6 mg/dL (2.5-4.6); POTASSIUM 4.1 mmol/L (3.5-5.0); SODIUM 144 mmol/L (135-145)
[2022-11-12 12:14] LABS: PLATELET ESTIMATE, MANUAL NORMAL (130-450,000) (NORMAL); PLATELET MORPHOLOGY NORMAL APPEARANCE (NORMAL)
[2022-11-12] MEDS ORDERED: iohexoL-300 100 ML VIAL ONE (12:23)
[2022-11-12 13:58] VITALS: BP 171/91
--- NOTE | 2022-11-12 14:03 | CT Report ---
PROCEDURE: CHEST W INDICATIONS: 20lb weight loss, h/o prostate CA CONTRAST: 100ml OMnipaque 300 TECHNIQUE: After the administration of intravenous contrast, 1 mm axial images were acquired from the pulmonary apices through the posterior costophrenic angles. Axial 5 mm soft tissue kernel reconstructions were performed as well as 8 mm axial MIP and coronal and sagittal 5 mm reformations. For radiation dose reduction, the following was used: automated exposure control, adjustment of mA and/or kV according to patient size. COMPARISON: None FINDINGS: Image quality: Good Lungs and pleura:Scattered scarring/atelectasis. Left Bochdalek's hernia. No pleural effusions. No ai rspace consolidation. Mild centrilobular nodularity is seen in the medial left lower lobe. There are also tiny micronodules for example in the right image 3/245. Multiple subpleural nodules are also seen in the right middle lobe. Mediastinum, heart, and esophagus: Distal esophageal wall thickening, as well as probable hernia and reflux there are suspicious soft tissue densities around the upper esophagus, most notably axial imag e 13 with soft tissue fullness of the upper esophagus and adjacent soft tissue density measuring 1.5 cm x 2.2 cm. Prominent mediastinal lymph nodes are also present. Overall normal heart size. Coronary calcification s. Chest wall and thyroid: Unremarkable Upper abdomen: Separately dictated Bones: No acute or suspicious osseous finding. There are degenerative changes. IMPRESSION: Abnormal esophagus, with moderate debris, hiatal hernia, distal esophageal wall thickening, and abnor mal soft tissue density in and around the esophagus at the upper aspect (reference image series 2 david ge 13). Recommend endoscopy in the setting of weight loss. Centrilobular nodularity is probably related to aspiration in this clinical context in the lungs. Oth er tiny pulmonary nodules are present bilaterally. Attention on follow-up is recommended, in 3 months or sooner depending on esophagus findings. Reviewed by: Nicolas Azul MD on 11/12/2022 2:02 PM PDT Approved by: Nicolas Azul MD on 11/12/2022 2:02 PM PDT Station ID: [id number]
--- NOTE | 2022-11-12 14:09 | CT Report ---
PROCEDURE: ABDOMEN/PELVIS W INDICATIONS: 20lb weight loss, h/o prostate CA CONTRAST: IV 100ml OMnipaque 300 TECHNIQUE: After the administration of IV contrast, 5 mm thick sections acquired from the diaphragms to the symp hysis. 5 mm thick coronal and sagittal reformats were acquired. For radiation dose reduction, the f ollowing was used: automated exposure control, adjustment of mA and/or kV according to patient size. COMPARISON: 12/19/2018 FINDINGS: Image quality: Good Lower chest: Separately dictated Solid organs: Subcentimeter lesions are too small to characterize, not definitely present on prior im aging, for example lesion adjacent to the fissure for the ligamentum teres (10/24) measuring 8 mm. Gallbladder is unremarkable. Similar prominence of the biliary tree and pancreatic duct, probably sen escent. No splenomegaly. No adrenal nodules. A right renal mass is present measuring 2.7 x 2.6 x 2.0 cm (axial image 29, coronal image 37). The right renal vein is patent. Other suspected cysts are pres ent. No hydronephrosis. Vessels and lymph nodes: Atherosclerotic calcifications. No abdominal aortic aneurysm. Portal vein is patent. Suspected soft tissue density adjacent to the right inguinal canal is again seen, probably f rom hernia repair. There are multiple pelvic clips. Bowel and peritoneum: No small bowel obstruction. No suspicious ascites. Bowel suture lines. Body wall: Unremarkable Pelvis: Pelvic dissection clips. Bladder is unremarkable. Prostatectomy changes. Bones: No acute or suspicious osseous abnormality. Degenerative changes are present. IMPRESSION: The right renal lesion measuring up to 2.7 cm (axial image 29) is compatible with renal cell carcinom a. The right renal vein is patent. It is in close proximity to the right posterior pararenal fascia. Multiple indeterminate liver lesions are too small to characterize, but might be new compared to 2019 and are suspicious in the setting of suspected multi malignancy history (reference 10/24). Further ev aluation could be obtained with MRI. Other findings as above. Chest findings are separately dictated. Reviewed by: Nicolas Azul MD on 11/12/2022 2:08 PM PDT Approved by: Nicolas Azul MD on 11/12/2022 2:08 PM PDT Station ID: [id number]
[2022-11-12] MEDS ORDERED: iohexoL-300 100 ML VIAL IVP ONE (18:01)
== END 2022-11-12 16:06 | disposition home or self-care (01) ==
LOC: EDUNIT# → ED 11:22
DX: D64.9 Anemia, unspecified (principal); C64.2 Malignant neoplasm of left kidney, except renal pelvis; C78.7 Secondary malignant neoplasm of liver and intrahepatic bile duct; K22.89 Other specified disease of esophagus; F03.90 Unspecified dementia, unspecified severity, without behavioral disturbance, psychotic disturbance, mood disturbance, and anxiety
CPT/HCPCS: 36415; 71260; 74177; 80053; 83690; 83735; 84100; 85025; 96360; 99284; G0480; Q9967; 80320

== ENCOUNTER 2022-11-12 16:01 | Outpatient (CLI) | payer MEDICARE, MEDICAID | END 2022-11-12 16:02 | disposition home or self-care (01) | LOC: EMS 16:01 | PROVIDERS: ATTEND Emergency Medicine | DX: F03.90 Unspecified dementia, unspecified severity, without behavioral disturbance, psychotic disturbance, mood disturbance, and anxiety (principal) | CPT/HCPCS: A0425; A0428 ==

== ENCOUNTER 2022-12-21 18:13 | Outpatient (CLI) | payer MEDICARE, MEDICAID | END 2022-12-21 18:14 | disposition critical access hospital (66) | LOC: EMS 18:13 | DX: R10.31 Right lower quadrant pain (principal); R10.32 Left lower quadrant pain; R13.10 Dysphagia, unspecified; R09.89 Other specified symptoms and signs involving the circulatory and respiratory systems; R00.0 Tachycardia, unspecified | CPT/HCPCS: A0425; A0429 ==

== ENCOUNTER 2022-12-21 18:34 | Emergency (ER) | payer MEDICARE, MEDICAID ==
--- NOTE | 2022-12-21 18:46 | ED Physician Documentation ---
PD HPI ABD PAIN - Stated complaint Stated Complaint: LLQ PAIN - Chief complaint Chief Complaint: Abd Pain - History obtained from History obtained from: EMS - Additional information Additional information: 67-year-old gentleman with metastatic esophageal cancer who is in hospice presents by ambulance for abdominal pain and potential aspiration. He is unable to give a history as he is nonverbal and demented. [facility] I was contacted by the hospice nurse prior to arrival, Radha RO at [phone] prior to arrival. He is on hospice, but he is still full code. They are working on making him DNR/DNI. He comes in because of report of lower abdominal pain. PD PAST MEDICAL HISTORY - Past Medical History Cardiovascular: Hypertension, High cholesterol, [place] Respiratory: None Neuro: CVA (RLE and RUE weakness) Endocrine/Autoimmune: None GI: Pancreatitis : None HEENT: None Psych: None, Other Musculoskeletal: None Derm: None - Past Surgical History Past Surgical History: Yes General: Other - Present Medications Home Medications: Ambulatory Orders Medication Instructions Recorded Confirmed lisinopriL [Lisinopril] 40 mg PO DAILY 11/08/18 12/21/22 guaiFENesin/DEXTROMETHORPHAN 10 ml PO Q6HR PRN 12/19/18 12/21/22 [Robitussin Dm] Ferrous Sulfate 325 mg PO DAILY 01/21/19 12/21/22 Thiamine HCl [Vitamin B-1] 100 mg PO DAILY 01/21/19 12/21/22 Acetaminophen [Tylenol] 650 mg PO Q6H PRN #30 tablet 01/24/19 12/21/22 Aspirin [Iza] 325 mg PO DAILY #10 tablet 01/24/19 12/21/22 Atorvastatin [Lipitor] 80 mg PO QPM #20 tablet 01/24/19 12/21/22 Metoprolol Succinate [Toprol Xl] 75 mg PO DAILY 11/12/22 12/21/22 Omeprazole Magnesium 20 mg PO DAILY 11/12/22 12/21/22 Famotidine 40 mg PO 12/21/22 - Allergies Allergies/Adverse Reactions: Allergies Allergy/AdvReac Type Severity Reaction Status Date / Time codeine AdvReac Unknown Verified 11/12/22 11:31 - Social History Does the pt smoke?: No Smoking Status: Never smoker Does the pt drink ETOH?: Yes Does the pt have substance abuse?: Yes - Immunizations Immunizations are current?: No Immunizations: TDAP >10years/unknown - POLST Patient has POLST: No POLST Status: Full Code PD ED PE NORMAL - Vitals Vital signs reviewed: Yes - General General: Other (He is alert but nonverbal. He will follow simple commands. He appears acutely on chronically ill and cachectic.) - Cardiac Cardiac: RRR, No murmur - Respiratory Respiratory: No respiratory distress, Other (Rhonchi at both bases) - Abdomen Abdomen: Non tender, Other (No significant bladder enlargement on bedside ultrasound) - Neuro Eye Opening: Spontaneous Motor: Obeys Commands Verbal: Confused (He can nod and grunt to commands, and questions, but I asked him if he understands what is going on or about his cancer diagnosis and he shakes his head no.) GCS Score: 14 Results - Vitals Vitals: Vital Signs - 24 hr 12/21/22 18:38 Temperature 36.9 C Heart Rate 118 H Respiratory 22 Rate Blood Pressure 151/78 H O2 Saturation 96 Oxygen O2 Source Room air PD Medical Decision Making - ED course ED course: I called the sister Debra at [phone] shortly after initial evaluation to clarify goals of care. She would like him to be comfortable, but does not want diagnostics or work-up for his abdominal pain. Subsequently I called the hospice nurse, Radha, at [phone]. She is updating the POLST with the sister and will fax it to us when able. We did give him 10 mg of morphine IM here. Departure - Departure Disposition: 01 Home, Self Care Clinical Impression: Metastasis to liver, Renal mass, Esophageal mass, Abdominal pain Condition: Good Instructions: Hospice, Hospice Start, Hospice Pain Management, Hospice Dyspnea Care, Hospice Nears Comments: Haris was seen today for abdominal pain. Clinically he is not retaining urine. His sister did not want him to have specific diagnostics and he received 10 mg of IM morphine here. The hospice nurse is arranging to make him DNR/DNI. Also hospice nurse is arranging for acceleration of his pain regimen.
[2022-12-21] MEDS: MORPHINE 10 MG/ML VIAL IM STA (18:57)
[2022-12-21 20:34] VITALS: BP 113/76
== END 2022-12-21 20:33 | disposition home or self-care (01) ==
LOC: EDUNIT# → ED 18:34
DX: R10.30 Lower abdominal pain, unspecified (principal); N28.89 Other specified disorders of kidney and ureter; C15.9 Malignant neoplasm of esophagus, unspecified; C78.7 Secondary malignant neoplasm of liver and intrahepatic bile duct; I10 Essential (primary) hypertension; E78.00 Pure hypercholesterolemia, unspecified; I25.2 Old myocardial infarction; I69.351 Hemiplegia and hemiparesis following cerebral infarction affecting right dominant side; F03.90 Unspecified dementia, unspecified severity, without behavioral disturbance, psychotic disturbance, mood disturbance, and anxiety; Z79.899 Other long term (current) drug therapy; Z79.82 Long term (current) use of aspirin
CPT/HCPCS: 96372; 99283; 99284

== ENCOUNTER 2022-12-21 20:28 | Outpatient (CLI) | payer MEDICARE, MEDICAID | END 2022-12-21 20:29 | disposition hospice, home (50) | LOC: EMS 20:28 | PROVIDERS: ATTEND Emergency Medicine | DX: Z51.5 Encounter for palliative care (principal); R10.9 Unspecified abdominal pain | CPT/HCPCS: A0425; A0428 ==

== ENCOUNTER 2022-12-22 11:02 | Outpatient (CLI) | payer MEDICARE, MEDICAID | END 2022-12-22 11:03 | disposition E | LOC: EMS 11:02 ==